=== PATIENT | male | born 1940 | race Caucasian/White ===

== ENCOUNTER → 2024-12-02 11:09 | Outpatient (REF) | payer OTHER, SELFPAY ==
[2024-12-02 12:19] LABS: Hematocrit 47.7 % (39.0-52.0); Hemoglobin 13.2 g/dL (13.0-18.0); Mean Corp Hgb Conc. 27.7 g/dL (33.0-37.0); Mean Corpuscular Volume 79.5 fL (80.0-94.0); Mean Platelet Volume 9.1 fL (7.4-10.4); Platelet Count 346 10^3/uL (130-400); Red Cell Dist. Width 25.7 % (11.5-14.5); White Blood Cell Count 4.6 10^3/uL (4.8-10.8)
[2024-12-02 12:40] LABS: NT-proBNP 5440 pg/ml
[2024-12-02 13:09] LABS: ALT (SGPT) 46 U/L (0-50); AST (SGOT) 50 U/L (17-59); Albumin 2.5 g/dl (3.5-5.0); Alkaline Phosphatase 317 U/L (38-126); Blood Urea Nitrogen 36 mg/dl (9-20); Calcium 7.8 mg/dl (8.4-10.2); Carbon Dioxide 23 mmol/L (22-30); Chloride 101 mmol/L (98-107); Glucose 154 mg/dl (70-99); Potassium 6.3 mmol/L (3.5-5.1); Sodium 127 mmol/L (135-145); Total Bilirubin 0.6 mg/dl (0.2-1.3); Total Protein 5.6 g/dl (6.3-8.2); eGFR 54.85
[2024-12-02 13:24] LABS: Absolute Neutrophils -Man Diff 2.2 10^3/uL (1.4-6.5); Band Neutrophils 0 % (0-3); Lymphocytes 36 % (20-51); Monocytes 16 % (2-9); Normal RBC Morphology Yes; Platelets Checked Yes; Segmented Neutrophils 48 % (42-75); Total Cells Counted 100
== END ==
LOC: OLABN 11:09
PROVIDERS: ATTENDING PHYSICIAN Student in an Organized Health Care Education/Training Program
DX: I10 Essential (primary) hypertension (principal); N18.32 Chronic kidney disease, stage 3b
CPT/HCPCS: 36415; 80053; 83880; 85025

== ENCOUNTER 2024-12-02 21:40 | Inpatient (IN) | payer OTHER, SELFPAY ==
[2024-12-02] VITALS (7 sets, daily range): BP systolic 122–145; BP diastolic 54–93; BMI 22.0
[2024-12-02 17:40] LABS: Hematocrit 50.7 % (39.0-52.0); Hemoglobin 14.2 g/dL (13.0-18.0); Mean Corpuscular Hgb 21.9 pg (27.0-31.0); Mean Corpuscular Volume 78.2 fL (80.0-94.0); Mean Platelet Volume 8.8 fL (7.4-10.4); Platelet Count 322 10^3/uL (130-400); Red Blood Cell Count 6.48 10^6/uL (4.70-6.10); Red Cell Dist. Width 25.9 % (11.5-14.5); White Blood Cell Count 4.3 10^3/uL (4.8-10.8)
[2024-12-02 17:44] LABS: ALT (SGPT) 42 U/L (0-50); AST (SGOT) 40 U/L (17-59); Albumin 2.7 g/dl (3.5-5.0); Alkaline Phosphatase 275 U/L (38-126); Blood Urea Nitrogen 37 mg/dl (9-20); Calcium 8.3 mg/dl (8.4-10.2); Carbon Dioxide 25 mmol/L (22-30); Chloride 100 mmol/L (98-107); Estimated Creatinine Clearance 36 ml/min; Glucose 123 mg/dl (70-99); Potassium 5.9 mmol/L (3.5-5.1); Sodium 129 mmol/L (135-145); Total Bilirubin 0.6 mg/dl (0.2-1.3); Total Protein 5.8 g/dl (6.3-8.2); eGFR 46.19
[2024-12-02 18:15] LABS: Absolute Neutrophils -Man Diff 1.9 10^3/uL (1.4-6.5); Band Neutrophils 0 % (0-3); Lymphocytes 30 % (20-51); Monocytes 24 % (2-9); Segmented Neutrophils 46 % (42-75)
[2024-12-02 18:16] LABS: Normal RBC Morphology Yes; Platelets Checked Yes; Total Cells Counted 100
--- NOTE | 2024-12-02 19:43 | ED.GENMED ---
History of Present Illness
General
Chief Complaint: Abnormal Lab Value
Source: patient
Exam Limitations: none
Time Seen by Provider: 12/02/24 19:41
Nursing documentation reviewed up to this point in time: agreed with
History of Present Illness
History of Present Illness:
The patient is a 84-year-old man with a past medical history of metastatic kidney cancer with mets to the lungs, who was sent from [facility] for where he is getting rehab, for elevated potassium level of 6.3 earlier today. His repeat
potassium level here tonight is 5.9. The patient was recently hospitalized at [facility] for pneumonia and unfortunately was rediagnosed with pneumonia yesterday and started on Levaquin. Patient is on chronic nasal oxygen and is currently
using 5 L of nasal oxygen. He denies fevers and chills. He reports that his breathing is currently near his baseline. The patient's family reports that recently he has been dealing with increased leg edema and bilateral pleural effusions and was
given 1 dose of Lasix yesterday. They report that he had been on oral medication to keep his cancer under control but has not been taking it for a few weeks due to diarrhea and pneumonia. The patient has no specific complaints of pain. He reports
generalized fatigue that he has been dealing with for months.
Past History
Past History
ED Past Medical History: CAD, Cancer, Hypercholesterolemia and NIDDM
ED Past Surgical History: Cardiac
Social History
Tobacco: Non-smoker
Alcohol: None
Drug: None
Personal:
Living: other (Rehab at [facility])
Employment: Retired
Family History
Family History: Other
Review of Systems
Review of Systems
Allergies reviewed?: Yes
All Other Systems: ROS reviewed and negative except as documented in HPI and ROS
Constitutional: Reports fatigue
EENT: Reports no symptoms
Respiratory: Reports cough and trouble breathing
Cardiac: Reports no symptoms
ABD/GI: Reports no symptoms
: Reports no symptoms
Musculoskeletal: Reports edema
Skin: Reports no symptoms
Neurological: Reports no symptoms
Endocrine: Reports no symptoms
Hematologic/Lymphatic: Reports no symptoms
Psychiatric: Reports no symptoms
Phy Exam
Physical Exam
Physical Exam:
Physical Exam
General: Patient appears pale and frail.
Neck: supple. no meningeal signs. normal psoterior pharynx
Heart: s1/s2 regular rate and rhythm,
Lungs: Mildly tachypneic with speaking. Bilateral crackles and decreased breath sounds bilaterally
Abdomen: normal bowel sounds. not tender. no CVAT
Neuro: alert and oriented. no focal neurological deficits
Skin: no rash
Psychiatric: well kept. interactive and cooperative
Extremities: 2+ pitting edema bilateral lower extremities. Negative Homans' sign. No calf tenderness
Course
Orders/Labs/Results
Orders:
Orders
12/02/24 17:19
EKG [Electrocardiogram (*1)] Urgent
Reason for Study: Shortness of Breath
EKG- Treatment ONCE
12/02/24 17:23
CMP [Comprehensive Metabolic Panel] Urgent
Complete Blood Count/With Diff Urgent
Manual Differential Urgent
NT-proBNP Urgent
Comment: ADD ON
12/02/24 20:36
Bumetanide [Bumex] 2 mg IV NOW STA
12/02/24 20:41
CR Chest - 2 Views Urgent
Comment:
Reason For Exam: SOB
12/02/24 21:08
Urine Osmolality Random [Osmolality, Random Urine] Urgent
Urine Sodium Urgent
12/02/24 21:09
Add On- LAB Urgent
Tests Added?: BNP
12/02/24 22:00
Flush (0.9% Sodium Chloride) [Flush (Nss)] See Dose Instructions IV PER PROTOCOL
Abnormal Lab Results
12/02/24
17:23
WBC 4.3 L 10^3/uL
(4.8-10.8)
RBC 6.48 H 10^6/uL
(4.70-6.10)
MCV 78.2 L fL
(80.0-94.0)
MCH 21.9 L pg
(27.0-31.0)
MCHC 28.0 L g/dL
(33.0-37.0)
RDW 25.9 H %
(11.5-14.5)
Monocytes (Manual) 24 H %
(2-9)
Sodium 129 L mmol/L
(135-145)
Potassium 5.9 H mmol/L
(3.5-5.1)
BUN 37 H mg/dl
(9-20)
Creatinine 1.5 H mg/dL
(0.7-1.3)
Glucose 123 H mg/dl
(70-99)
Calcium 8.3 L mg/dl
(8.4-10.2)
Alkaline Phosphatase 275 H U/L
(38-126)
Total Protein 5.8 L g/dl
(6.3-8.2)
Albumin 2.7 L g/dl
(3.5-5.0)
12/02/24 17:23
12/02/24 17:23
Vital Signs
Initial and Last Documented VS:
Initial Vital Signs
Temp Pulse Resp BP Pulse Ox
97.4 F 65 25 122/54 97
12/02/24 17:03 12/02/24 17:03 12/02/24 17:03 12/02/24 17:03 12/02/24 17:03
Last Documented Vital Signs
Temp Pulse Resp BP Pulse Ox
97.4 F 64 19 133/57 95
12/02/24 17:03 12/02/24 20:00 12/02/24 20:00 12/02/24 20:00 12/02/24 20:00
MDM/Problems Addressed
Differential Diagnosis Includes:
Medication related hyperkalemia, acute renal failure,
MDM/Problems Addressed:
Patient presents with acute hyperkalemia
Chronic conditions affecting care:
Chronic kidney disease
Acute Exacerbation and/or Progression of Chronic Illness:
Patient may have acute on chronic renal insufficiency
*Radiology
Radiology exam reviewed: preliminary read by ED provider (Cardiomegaly. Bilateral pleural effusions, cannot exclude underlying infiltrates)
*Pulse Oximetry
Patient hypoxic: no
*EKG
Interpreted by ED Provider?: Yes
Interpretation: abnormal
Comparison EKG: no comparison EKG present
Rate: normal
Rhythm: sinus
Piffard: normal axis
Interval: normal interval
QRS Pattern: right bundle branch block
Ischemia: non-specific ST changes
*Litigation Secretary Interpretation
Rate: normal
Interpretation: normal
Rhythm: sinus
*Critical Care Note
Total Time (30-74mins, 75-104mins- exclusive of procedures): Not Applicable (35 minutes)
comment:
35 minutes of critical care given to the patient including reviewing his chest x-ray, blood work, speaking to the hospitalist, family as well as reviewing his notes from [facility]
Data Reviewed
Source: patient and family
Patient Management
Social determinants of health affecting care: Living situation and Strong social support
Discussion with other providers: Hospitalist and Other (Case discussed with Dr. Yasmany Coley who recommended admission and given 2 mg IV Bumex now for fluid overload)
Escalation/DeEscalation of care consider admission/obs:
Given patient is greatly fluid overloaded, has a recent diagnosis of hospital-acquired pneumonia, and additionally has an elevated potassium, decision made to admit patient for diuresis and monitor his potassium and sodium levels. Additionally, we
will also monitor him for any sign of sepsis. Currently, he is afebrile and looks nontoxic. He is fully awake, alert and blood pressure normal.
ED Attending Note
-
Portions of this chart may have been created with voice recognition software.� Occasional wrong word or��sound alike� substitutions may have occurred due to the inherent limitations of voice recognition software.
Discharge Plan
Departure
Patient Disposition: Admit
Date of Disposition: 12/02/24
Time of Disposition: 20:36
Admit to: Telemetry
Presentation/result/management discussed w/ accepting MD/DO: Hospitalist
Patient with high blood pressure during this ER visit?: No
Condition: Fair
Discharge Problem:
Acute hyperkalemia, Bilateral pleural effusion
Prescriptions:
No Action
acetaminophen 325 mg Tablet
650 mg PO Q4H PRN (Reason: mild pain / fever)
ipratropium-albuterol 0.5 mg-3 mg(2.5 mg base)/3 mL Solution For Nebulization
3 ml INHALATION Q6HPRN PRN (Reason: shortness of breath / wheeze)
isosorbide mononitrate 30 mg Tablet Extended Release 24 Hr
30 mg PO DAILY
diphenoxylate-atropine 2.5-0.025 mg Tablet
1 tab PO DAILY PRN (Reason: diarrhea)
hydralazine 25 mg Tablet
25 mg PO DAILY@1830
Rx Instructions:
Hold for SBP <110 or HR <60
bisacodyl 10 mg Suppository
10 mg DC DAILY PRN (Reason: constipation)
Rx Instructions:
No BM for 3 days and Lactulose ineffective
bumetanide [Bumex] 0.5 mg Tablet
0.5 mg PO DAILY
aspirin 81 mg Tablet
81 mg PO DAILY
pyridoxine (vitamin B6) [Vitamin B-6] 100 mg Tablet
100 mg PO BID
mirtazapine 15 mg Tablet
15 mg PO HS
metoprolol succinate 25 mg Tablet Extended Release 24 Hr
12.5 mg PO HS
rosuvastatin 10 mg Tablet
10 mg PO DAILY
lactulose 10 gram/15 mL Solution
30 ml PO HSPRN PRN (Reason: constipation)
sitagliptin 25 mg Tablet
25 mg PO DAILY
Referrals:
Gume Byers MD [Family Provider]
Interventions
Interventions:
*Risk Screen - Suicide Last Done: 12/02/24 18:17
*General Assessment Last Done: 12/02/24 17:16
*Neglect/Abuse Screening Last Done: 12/02/24 18:40
*ED- Fall Risk Assessment Last Done: 12/02/24 17:16
*ED COVID-19 Vaccine History Last Done: 12/02/24 17:03
Discharge Date and Time
Print Language: CROATIAN
--- NOTE | 2024-12-02 21:36 | HPS.HSE ---
Family Physician
-
Family Physician: Gume Byers
Chief Complaint
-
Elevated Potassium
History of Present Illness
Patient is an 84 y/o male past medical history of metastatic renal cell carcinoma, recurrent pleural effusion requiring thoracentesis, CAD, HTN, and DM who presents with hyperkalemia. Patient was hospitalization at [facility] earlier this
month. During that hospitalization he was treated for pneumonia and also had a left thoracentesis for a pleural effusion. Patient was discharged to [facility] for alf care on November 18. Per family patient had a second thoracentesis
while at [facility]. Yesterday patient had a CXR that revealed a patchy bilateral airspace disease and modest pleural effusions for which patient was started on Levaquin. Blood work obtained today showed a potassium of 6.2 and patient was sent to the
emergency department for evaluation. Family at bedside notes patient has developed significant lower extremity edema since being at the SNF. Review of transfer records indicate an 8lb weight gain in the past week. Patient/Family deny any prior
history of heart failure.
Medical History
Past Medical History
Past Medical History: Reports Other
Additional Past Medical History:
Chronic Hypoxic Respiratory Failure
Recurrent Pleural Effusion
Metastatic Renal Cell Carcinoma with Lung Mets s/p Keytruda and Chemotherapy
CKD Stage IIIB
Coronary Artery Disease s/p CABG
Essential Hypertension
Hyperlipidemia
Diabetes Mellitus, Type II
Depression
Past Surgical History: Reports Other
Additional Past Surgical History:
Coronary Artery Bypass Graft
Thoracentesis
Discectomy
Social History
Tobacco: Non-smoker
Alcohol: Occasional (None recently)
Family History
Family History: Not pertinent
Allergies / Home Medications
Allergies reflects when Allergies were last updated in [employer].
Home Medications with original date entered in [facility]
Allergy/Medication List:
Allergies
Allergy/AdvReac Type Severity Reaction Status Date / Time
adhesive tape Allergy Rash Verified 12/02/24 17:15
Home Medications
acetaminophen 325 mg tablet 650 mg PO Q4H PRN mild pain / fever 12/02/24
aspirin 81 mg tablet 81 mg PO DAILY 12/02/24
bisacodyl 10 mg rectal suppository 10 mg DE DAILY PRN constipation 12/02/24
bumetanide 0.5 mg tablet 0.5 mg PO DAILY 12/02/24
diphenoxylate-atropine 2.5 mg-0.025 mg tablet 1 tab PO DAILY PRN diarrhea 12/02/24
hydralazine 25 mg tablet 25 mg PO DAILY@1830 12/02/24
ipratropium 0.5 mg-albuterol 3 mg (2.5 mg base)/3 mL nebulization soln 3 ml inhalation Q6HPRN PRN shortness of breath / wheeze 12/02/24
isosorbide mononitrate 30 mg tablet,extended release 24 hr 30 mg PO DAILY 12/02/24
lactulose 10 gram/15 mL oral solution 30 ml PO HSPRN PRN constipation 12/02/24
metoprolol succinate 25 mg tablet,extended release 24 hr 12.5 mg PO HS 12/02/24
mirtazapine 15 mg tablet 15 mg PO HS 12/02/24
pyridoxine (vitamin B6) 100 mg tablet (Vitamin B-6) 100 mg PO BID 12/02/24
rosuvastatin 10 mg tablet 10 mg PO DAILY 12/02/24
sitagliptin 25 mg tablet 25 mg PO DAILY 12/02/24
Review of Systems
-
History Source: Patient and Family
A 12 point ROS was completed and negative except as noted: Yes
Constitutional: Denies Fever or Chills
Respiratory: Reports Trouble Breathing; Denies Cough
Cardiac: Denies Chest Pain or Palpitations
Physical Exam
Vital Signs
Vital Signs
Temp Pulse Resp BP Pulse Ox
97.4 F 64 19 133/57 95
12/02/24 17:03 12/02/24 20:00 12/02/24 20:00 12/02/24 20:00 12/02/24 20:00
Physical Exam
General: Comfortable, Conversant and Other (Temporal Wasting)
HEENT: Anicteric, Moist mucous membranes and Oxygen (Nasal Cannula)
Respiratory: Non Labored Respirations and Other (Absent breath sounds on left from base to about half way up lung field; Decreased breath sounds right base; Few scattered rales)
Cardiac: S1/S2 and Regular Rhythm
GI: Soft and Non Tender
Rectal: Deferred by Provider
Musculoskeletal: No Clubbing, No Cyanosis and Other (+3 pitting edema bilateral lower extremities; Tubigrip in place bilateral)
Skin: Warm and Dry
Neuro: Awake, Alert, Oriented and Nonfocal/grossly intact
Psych: Calm
Laboratory Results
-
12/02/24 17:23
12/02/24 17:23
Laboratory Results
Total Bilirubin 0.6 mg/dl (0.2-1.3) 12/02/24 17:23
AST 40 U/L (17-59) 12/02/24 17:23
ALT 42 U/L (0-50) 12/02/24 17:23
Alkaline Phosphatase 275 U/L (38-126) H 12/02/24 17:23
Data Reviewed
-
Diagnostic Radiology: Image Personally Visualized and interpreted (CXR: Large left pleural effusion; Small right pleural effusion)
Lab Data: Labs Reviewed by me
Old Records: Reviewed
Impression/Plan
-
Recurrent Left Pleural Effusion
-Consult IR for thoracentesis
-Will send usual studies including cytology to evaluate for possible malignant effusion in setting of metastatic renal cell carcinoma
Acute Heart Failure, unknown EF
-Consult Cardiology
-Check Echocardiogram
-Continue Bumex 1mg IV Daily
-Monitor Is&Os and Daily Weights
Hyperkalemia
-Appears patient previously was on lisinopril which appears to have been stopped
-Patient given Bumex in ED
-Recheck potassium later this evening
Hyponatremia, suspect hypervolemic
-Continue fluid restriction
-Check urine electrolytes
Chronic Hypoxic Respiratory Failure
-Continue supplement oxygen
CKD Stage IIIB, per [place] paperwork
-Monitor creatinine closely while on diuretics
Metastatic Renal Cell Carcinoma with Lung Mets s/p Keytruda and Chemotherapy
-Treatment currently no hold
Coronary Artery Disease s/p CABG
-Continue aspirin
Essential Hypertension
-Continue metoprolol and hydralazine with hold parameters
Hyperlipidemia
-Continue rosuvastatin
Diabetes Mellitus, Type II
-Continue Januvia
-Monitor sugars and continue coverage insulin
Depression
-Continue mirtazapine
DVT prop: SC Heparin
Code Status: DNR
[2024-12-02] MEDS: BUMEX 2 MG IV (21:37)
[2024-12-02] MEDS: FLUSH (NSS) 1 FLUSH IV (21:45)
--- NOTE | 2024-12-02 21:53 | W.PN.UPDATE ---
Update Note
Progress Note Update
This is an addendum to H&P written by Laurie Salgado on 12/02/2024.� Patient seen and examined independently with PA.
84-year-old male past medical history of metastatic kidney cancer metastases to the lungs previously on Keytruda and chemotherapy, CAD status post CABG, hypertension, depression, hypercholesteremia, diabetes, presenting for elevated potassium 6.3.�
Recently hospitalized at [facility] for pneumonia and pleural effusion status post thoracentesis and rediagnosed with pneumonia yesterday at [facility] and started on Levaquin.� Requiring 5 L oxygen.� Has been having increased lower
extremity edema bilateral pleural effusions and was given Lasix yesterday.
Patient currently requiring 4 L oxygen.� On examination significantly diminished lung sounds on the left side suggesting large effusion.
Labs show potassium of 6.3 this morning, currently 5.9.� Creatinine 1.5.� Sodium 129.� Leukocytes 4.3.� Cardiac BNP of 5400.� EKG shows normal sinus rhythm, incomplete right bundle branch block.
Patient with hyperkalemia secondary to volume overload/underlying heart failure.��
Hypoxemic respiratory failure seems to be combination of acute CHF exacerbation and pleural effusions possibly related to CHF/underlying lung metastases.� Chest x-ray report from yesterday shows bibasilar opacities and moderate pleural effusions.�
Repeat chest x-ray.� Hold further antibiotics.� Continue Bumex.� Check echocardiogram.� Will�need IR thoracentesis on the left side. Cardiology consulted.�
Likewise edema likely combination of CHF/hypoalbuminemia/malignancy.
[2024-12-02 21:54] LABS: NT-proBNP 6790 pg/ml
[2024-12-02 22:45] LABS: Osmolality Urine 320 mOsm/kg (300-900)
--- NOTE | 2024-12-02 23:00 | PTCARENOTE ---
Pt arrived from ED via stretcher. Pulled over from stretcher to bed by staff. Pt A&Ox3. Oriented to unit. Plan of care ongoing.
[2024-12-02] MEDS: REMERON 15 MG PO (23:32)
[2024-12-02] MEDS: TOPROL XL 12.5 MG PO (23:34)
[2024-12-02 23:37] LABS: Urine Sodium 88 mmol/L (30-90)
[2024-12-03] VITALS (11 sets, daily range): BP systolic 92–147; BP diastolic 46–65; PULSE 73–84; O2SAT 94; BMI 21.9
[2024-12-03 00:12] LABS: Glucose - Point of Care 142 mg/dl (70-99)
--- NOTE | 2024-12-03 01:00 | PTCARENOTE ---
Pt oral temperature noted to be 94.2 F. JESSE Garrido notified. This RN advised to take rectal temperature. Rectal temp noted to be 95.2 F. Order for tin quang placed. Plan of care ongoing.
[2024-12-03 06:59] LABS: Hematocrit 46.2 % (39.0-52.0); Hemoglobin 13.2 g/dL (13.0-18.0); Mean Corp Hgb Conc. 28.6 g/dL (33.0-37.0); Mean Corpuscular Hgb 21.8 pg (27.0-31.0); Mean Corpuscular Volume 76.2 fL (80.0-94.0); Mean Platelet Volume 8.9 fL (7.4-10.4); Platelet Count 316 10^3/uL (130-400); Red Blood Cell Count 6.06 10^6/uL (4.70-6.10); Red Cell Dist. Width 25.1 % (11.5-14.5); White Blood Cell Count 3.7 10^3/uL (4.8-10.8)
[2024-12-03 07:15] LABS: Blood Urea Nitrogen 36 mg/dl (9-20); Calcium 8.5 mg/dl (8.4-10.2); Carbon Dioxide 24 mmol/L (22-30); Chloride 101 mmol/L (98-107); Estimated Creatinine Clearance 39 ml/min; Glucose 110 mg/dl (70-99); LDH 220 U/L (120-246); Magnesium 1.8 mg/dl (1.6-2.3); Sodium 130 mmol/L (135-145); Total Protein 5.4 g/dl (6.3-8.2); eGFR 50.18
[2024-12-03 07:19] LABS: PT 15.5 Sec (11.4-14.6)
[2024-12-03 07:46] LABS: TSH Reflex To Free T4 6.76 uIU/ml (0.47-4.68)
[2024-12-03 07:58] LABS: Glucose - Point of Care 101 mg/dl (70-99)
[2024-12-03 08:16] LABS: Free T4 1.49 ng/dl (0.78-2.19)
--- NOTE | 2024-12-03 09:10 | W.PN.HOSP.TC ---
Today's Communication/Plan
-
Continue IV Bumex twice daily
Stop hydralazine per cards
Repeat chest x-ray tomorrow
Consider IR consult if effusions persistent
Echo on Thursday
Assessment / Plan
Assessment / Plan
#Acute on chronic hypoxemic respiratory failure
#Acute heart failure
#Recurrent (?) left pleural effusion
-Likely new onset heart failure (unclear etiology, previously on chemo) with recurrence (?) of left pleural effusion
-Last echocardiogram in 2023 was normal with preserved LVEF and no diastolic dysfunction
-Upon arrival was started on IV Bumex which has been escalated to twice daily, now on RA
-Warm and wet phenotype, remains hemodynamically stable
-Cardiology following
Plan
-Continue IV Bumex 1 mg twice daily; BMP + I/Os + weights
-Consider IR consult if left sided effusion persistent
-Order echocardiogram to assess LVEF
-Continue with beta-yesi, consider SGLT2i
-Monitor on telemetry for now
-Monitor on RA
-Repeat CXR on 12/04
#Hyperkalemia
#Hypervolemic hyponatremia
-Hypervolemic phenotype with decompensated heart failure; sodium near 130, potassium near 6 initially
-Was started on IV Bumex as above, sodium remained stable and potassium now downtrending
-Was started on potassium restricted diet, bladder ultrasound ordered to assess for obstruction
-Continue with Bumex and follow-up ultrasound
-Trend BMP, temporize K >6 or ECG changes
#CKD stage IIIb
-Possibly related to renal cell carcinoma; baseline creatinine near 1.3
-Not associated with anemia, acidemia, bone mineral disease
-Creatinine near 1.6 here, likely within baseline versus cardiorenal elevation
-Continue to trend BMP on Bumex as above
#Stage IV renal cell carcinoma with lung mets
-Status post Keytruda for immunotherapy, and course of chemotherapy
-Was recently stopped on oral medication due to diarrhea and pneumonia
-Will need to follow-up with oncologist after DC
#CAD s/p CABG
#Dyslipidemia
-Home regimen includes aspirin, rosuvastatin, metoprolol succinate, isosorbide
-No history of cardiomyopathy, last echo with preserved LVEF
-CAD associated with history of diabetes and HLD
-No signs of ACS here
#Primary hypertension
-Home regimen including metoprolol succinate, isosorbide, hydralazine daily
-Cardiology discontinued daily hydralazine
-Blood pressure remained stable
#NIDDM
-No recent A1c; Home regimen includes sitagliptin
-No known history of microvascular complications
-Likely associated with CAD history
-Transition to ISS with Accu-Cheks here
#Depression
-Remains on home nightly Remeron
Diet: Carb controlled, no added salt
DVT prophylaxis: SQ heparin
CODE STATUS: DNR
Anticipated Discharge: > 48 hours
Subjective/Interval History
-
Date of Service: December 03, 2024
Seen and examined at the bedside. No acute events reported. AFVSS on room air this morning
Sodium stable near 130. Potassium downtrending from 6-5.6. Creatinine stable
Patient states he is breathing much better, denies any new complaints
Objective Data
-
Labs:
Laboratory Results
12/03/24 12/03/24
06:25 06:25
WBC 3.7 L
Hgb 13.2
Hct 46.2
Plt Count 316
PT 15.5 H
INR 1.20
Sodium 130 L
Potassium 6.0 H Pending
Chloride 101
Carbon Dioxide 24
BUN 36 H
Creatinine 1.4 H
Glucose 110 H
Calcium 8.5
Vital Signs:
Vital Signs
Temp Pulse Resp BP Pulse Ox
98.1 F 84 16 138/62 94
12/03/24 07:43 12/03/24 07:43 12/03/24 07:43 12/03/24 07:43 12/03/24 07:43
I&O
12/02/24 12/03/24 12/04/24
06:59 06:59 06:59
Intake Total 1050 / 1050
Balance 1050 / 1050
Review of Systems
-
History Source: Patient
All other systems: Reviewed and negative
Physical Exam
-
General: Well Developed, Well Nourished, No Apparent Distress and Comfortable
HEENT: Normocephalic, Atraumatic, Moist Mucous Membranes and Anicteric
Respiratory: Rales and Non Labored Respirations; Negative Wheezes, Rhonchi or Accessory Resp Muscle Use
Cardiac: Regular Rhythm, S1/S2, JVD (Unable to assess due to habitus) and Other (2+ edema); Negative Murmur, Rub or Gallop
GI: Soft, Nontender, Nondistended and Normal Bowel Sounds
Musculoskeletal: No Clubbing and No Cyanosis
Skin: Warm and Dry; Negative Rash
Neuro: AO x 3 and Nonfocal/Grossly Intact
Psych: Calm
Data Reviewed
-
Labs: Labs Reviewed by me, Discussed with Physician (Gambreler Helper) and Discussed with Patient
--- NOTE | 2024-12-03 09:18 | CON.CAR ---
Addendum entered and electronically signed by Flaco Seals MD 12/03/24 11:01:
I saw and examined the patient.
The TRUCK BRACER's note was reviewed and I agree with the note.
Comment: Patient seen with his , daughter and [id number] at the bedside. They note, he has not had an issue with volume retention until recent hospitalization for pneumonia. Since then, has been struggling with lower extremity edema, and
his daughter reports that while at [facility] he did have an episode several nights where he woke up feeling short of breath acutely. He was given a nebulizer treatment. Currently sitting up in the chair without any dizziness, chest pain or
shortness of breath. On exam, he appears chronically ill. He has cachexia in the face and upper thorax, JVP is elevated while sitting at 90 degrees, lungs are clear to auscultation but decreased bilaterally at the bases, he has a regular rate and
rhythm with normal S1-S2. 2-3+ pitting edema in the legs. Some ecchymosis. EKG is sinus rhythm with incomplete right bundle branch bloc chest x-ray chest x-ray shows moderate to large left pleural effusion, with patchy infiltrates in addition to
diffuse interstitial markings. There is a dense infiltrate in the right lower to mid/hilum lung field sternal wires in place findings seem consistent with multifocal pneumonia with pulmonary edema and pleural effusion. Labs show proBNP 6790
creatinine 1.5 overall, multiple reasons for him to have had episodes of what sound like PND, but findings concerning for a component of acute HFpEFAgree with IV Bumex twice daily with intensive monitoring. Will add to put compression to lower
extremities. Will ask case management to lorenz out Farxiga/Jardiance. GDMT will be limited by hyperkalemia.He has not on antihypertensive regimen with a midday hydralazine dose, but blood pressures do not seem to need this. Will try to see if we
can limit overall therapies. Will stop this dose. SUNITHA, mild, suspect this will improve with diuresis. Will monitor.
Original Note:
Consultation
Consultation Request
Date/Time Consultation Requested: 12/02/24 10:45p
Date/Time Consultation Performed: 12/03/24 8:45a
Requesting Provider: Laurie Garcia PA-C
Performing Provider: JESSE Carroll for Dr. Seals
Reason for Consultation: CHF
Medical History
-
Chief Complaint: hyperkalemia
History of Present Illness:
Mr. Butts is an 84 yo male with recurrent pleural effusions, metastatic renal cell carcinoma with lung mets s/p chemotherapy and Keytruda followed by [facility], CKD 3B, CAD status post CABG x2 2006, hypertension, dyslipidemia, znq-dkjjqfg-zyyhzznqr
diabetes, and PAD (moderate right ICA), who presents to the ER from [facility] with hyperkalemia of 6.2 on outpatient labs. He was recently hospitalized at [facility] for pneumonia, and was sent to [facility] for rehab.
He notes significant increased lower extremity edema and weight gain of about 8 pounds in 1 week. He is admitted to the hospitalist service and we are consulted for acute HFpEF. His primary instrument room technician is Dr. Naranjo and he is not on outpatient
diuretics. CXR shows mild right upper lobe, right lower lobe and left lower lobe pneumonia, atelectasis in left lower lobe not excluded and small b/l pleural effusions, his proBNP is 6790.
Past Medical History
Past Medical History: Other (as above)
Past Surgical History: Cardiac (CABG 2006)
Social History
Tobacco: Former Smoker
Personal:
Living: With Family
Employment: Retired
Family History
Family History: Reviewed & Not Pertinent
Allergies / Home Medications
Allergy/AdvReac Type Severity Reaction Status Date / Time
adhesive tape Allergy Rash Verified 12/02/24 17:15
�Medication �Instructions �Recorded �Confirmed �Type
acetaminophen 325 mg tablet 650 mg PO Q4H PRN mild pain / fever 12/02/24 12/02/24 History
aspirin 81 mg tablet 81 mg PO DAILY Blood Clot 12/02/24 12/02/24 History
Prevention/Tx
bisacodyl 10 mg rectal suppository 10 mg [place] DAILY PRN constipation 12/02/24 12/02/24 History
bumetanide 0.5 mg tablet 0.5 mg PO DAILY Fluid 12/02/24 12/02/24 History
Retention/Swelling
diphenoxylate-atropine 2.5 1 tab PO DAILY PRN diarrhea 12/02/24 12/02/24 History
mg-0.025 mg tablet
hydralazine 25 mg tablet 25 mg PO DAILY@1830 Blood Pressure 12/02/24 12/02/24 History
ipratropium 0.5 mg-albuterol 3 mg 3 ml inhalation Q6HPRN PRN 12/02/24 12/02/24 History
(2.5 mg base)/3 mL nebulization shortness of breath / wheeze
soln
isosorbide mononitrate 30 mg 30 mg PO DAILY Blood Pressure 12/02/24 12/02/24 History
tablet,extended release 24 hr
lactulose 10 gram/15 mL oral 30 ml PO HSPRN PRN constipation 12/02/24 12/02/24 History
solution
metoprolol succinate 25 mg 12.5 mg PO HS Blood Pressure 12/02/24 12/02/24 History
tablet,extended release 24 hr
mirtazapine 15 mg tablet 15 mg PO HS Sleep 12/02/24 12/02/24 History
pyridoxine (vitamin B6) 100 mg 100 mg PO BID Supplement 12/02/24 12/02/24 History
tablet (Vitamin B-6)
rosuvastatin 10 mg tablet 10 mg PO DAILY High Cholesterol 12/02/24 12/02/24 History
sitagliptin 25 mg tablet 25 mg PO DAILY Diabetes 12/02/24 12/02/24 History
Review of Systems
-
History Source: Patient
All other systems: Negative unless noted
Physical Exam
Vital Signs
Temp Pulse Resp BP Pulse Ox
98.1 F 84 16 138/62 94
12/03/24 07:43 12/03/24 07:43 12/03/24 07:43 12/03/24 07:43 12/03/24 07:43
Lab Results
12/03/24 06:25
12/03/24 06:25
Czd-N-Cqpwiezfkzz Pept 6790 pg/ml 12/02/24 17:23
Physical Exam
General: Other (chronically ill, frail/elderly)
HEENT: Normocephalic, Anicteric and Moist Mucous Membranes
Respiratory: Non Labored Respirations and Other (diminished bibasilar breath sounds)
Cardiac: S1/S2, Regular Rhythm and Peripheral Edema (+2-3 pitting edema b/l LE)
Breast: Deferred by me
GI: Soft, Non Tender, Non Distended and Normal Bowel Sounds
Genito-urinary: No Costovertebral Tender
Musculoskeletal: No Clubbing and No Cyanosis
Skin: Warm and Dry
Neuro: AO x 3
Psych: Calm
Impression / Plan
-
HFpEF - acute.
- agree with diuresis as BP allows.
- check daily weights, I&Os, TEDs.
- case management cost for [facility].
Pleural effusion - recurrent.
- IRAD consulted.
- per hospitalist.
CAD - s/p CABG 2006.
- no angina.
- continue medical therapy.
HTN - monitor with diuresis.
HLD - stable on Crestor, continue.
Renal cancer - mets to lung s/p chemo and Keytruda.
- per hospitalist.
- managed by [facility].
Data Reviewed
-
EKG: Tracing Personally Visualized and interpreted (NSR icRBBB, 66 bpm)
Radiology: Report Reviewed by me (CXR: mild right upper lobe, right lower lobe and left lower lobe pneumonia. Atelectasis in left lower lobe not excluded, small b/l pleural effusions.)
Medical Tests (Nuc Med, Echo etc): Report Reviewed by me (echo 08/2023: EF 60-65%, minimal aortic stenosis peak gradient 17mmHg.)
Labs: Labs Reviewed by me
Old Records: Reviewed
[2024-12-03] MEDS: ASPIR LOW (ENTERIC COATED) 81 MG PO (09:21)
[2024-12-03] MEDS: CRESTOR 10 MG PO (09:21)
[2024-12-03] MEDS: BUMEX 1 MG IV ×2 (09:22→16:39)
[2024-12-03] MEDS: HEPARIN 5000 UNITS SC ×2 (09:23→20:58)
[2024-12-03] MEDS: JANUVIA 25 MG PO (09:23)
[2024-12-03 11:58] LABS: Glucose - Point of Care 144 mg/dl (70-99)
--- NOTE | 2024-12-03 12:02 | W.CON.NEPH ---
Consultation
-
Date/Time Consultation Requested: December 02, 2024 at 1900
Date/Time Consultation Performed: December 03, 2024 at 10 AM
Requesting Provider: Dr. Kline
Performing Provider: Dr. Coley
Reason for Consultation: Hyperkalemia and acute kidney injury
Medical History
-
Chief Complaint: Hyperkalemia
History of Present Illness:
84 y/o male past medical history of metastatic renal cell carcinoma, recurrent pleural effusion requiring thoracentesis, CAD, HTN, and DM who presents with hyperkalemia. Patient was hospitalization at [facility] earlier this month. During
that hospitalization he was treated for pneumonia and also had a left thoracentesis for a pleural effusion. Patient was discharged to [facility] for assisted care on November 18. Per family patient had a second thoracentesis while at [facility].
Yesterday patient had a CXR that revealed a patchy bilateral airspace disease and modest pleural effusions for which patient was started on Levaquin. Blood work obtained today showed a potassium of 6.2 and patient was sent to the emergency
department for evaluation.
Renal consult for acute kidney injury and hyperkalemia
Discussed with the emergency room last night and ordered a Bumex.
Past Medical History
Past medical history of metastatic renal cell carcinoma, recurrent pleural effusion requiring thoracentesis, CAD, HTN,
Social History
Tobacco: Non-Smoker
Alcohol: None
Family History
Family History: Not Pertinent
Allergies / Home Medications
Allergy/AdvReac Type Severity Reaction Status Date / Time
adhesive tape Allergy Rash Verified 12/02/24 17:15
�Medication �Instructions �Recorded �Confirmed �Type
acetaminophen 325 mg tablet 650 mg PO Q4H PRN mild pain / fever 12/02/24 12/02/24 History
aspirin 81 mg tablet 81 mg PO DAILY Blood Clot 12/02/24 12/02/24 History
Prevention/Tx
bisacodyl 10 mg rectal suppository 10 mg [place] DAILY PRN constipation 12/02/24 12/02/24 History
bumetanide 0.5 mg tablet 0.5 mg PO DAILY Fluid 12/02/24 12/02/24 History
Retention/Swelling
diphenoxylate-atropine 2.5 1 tab PO DAILY PRN diarrhea 12/02/24 12/02/24 History
mg-0.025 mg tablet
hydralazine 25 mg tablet 25 mg PO DAILY@1830 Blood Pressure 12/02/24 12/02/24 History
ipratropium 0.5 mg-albuterol 3 mg 3 ml inhalation Q6HPRN PRN 12/02/24 12/02/24 History
(2.5 mg base)/3 mL nebulization shortness of breath / wheeze
soln
isosorbide mononitrate 30 mg 30 mg PO DAILY Blood Pressure 12/02/24 12/02/24 History
tablet,extended release 24 hr
lactulose 10 gram/15 mL oral 30 ml PO HSPRN PRN constipation 12/02/24 12/02/24 History
solution
metoprolol succinate 25 mg 12.5 mg PO HS Blood Pressure 12/02/24 12/02/24 History
tablet,extended release 24 hr
mirtazapine 15 mg tablet 15 mg PO HS Sleep 12/02/24 12/02/24 History
pyridoxine (vitamin B6) 100 mg 100 mg PO BID Supplement 12/02/24 12/02/24 History
tablet (Vitamin B-6)
rosuvastatin 10 mg tablet 10 mg PO DAILY High Cholesterol 12/02/24 12/02/24 History
sitagliptin 25 mg tablet 25 mg PO DAILY Diabetes 12/02/24 12/02/24 History
Review of Systems
-
Lower extremity edema
All other systems: Negative unless noted
Physical Exam
Vital Signs
Vital Signs
Temp Pulse Resp BP Pulse Ox
97.5 F 71 16 108/53 98
12/03/24 11:11 12/03/24 11:11 12/03/24 11:11 12/03/24 11:11 12/03/24 11:11
Lab Results
WBC 3.7 10^3/uL (4.8-10.8) L 12/03/24 06:25
RBC 6.06 10^6/uL (4.70-6.10) 12/03/24 06:25
Hgb 13.2 g/dL (13.0-18.0) 12/03/24 06:25
Hct 46.2 % (39.0-52.0) 12/03/24 06:25
Plt Count 316 10^3/uL (130-400) 12/03/24 06:25
Sodium 130 mmol/L (135-145) L 12/03/24 06:25
Chloride 101 mmol/L (98-107) 12/03/24 06:25
Carbon Dioxide 24 mmol/L (22-30) 12/03/24 06:25
BUN 36 mg/dl (9-20) H 12/03/24 06:25
Creatinine 1.4 mg/dL (0.7-1.3) H 12/03/24 06:25
eGFR 50.18 12/03/24 06:25
Glucose 110 mg/dl (70-99) H 12/03/24 06:25
Calcium 8.5 mg/dl (8.4-10.2) 12/03/24 06:25
Lid-V-Dkxnsfldnpm Pept 6790 pg/ml 12/02/24 17:23
Albumin 2.7 g/dl (3.5-5.0) L 12/02/24 17:23
Physical Exam
General no acute distress
HEENT no cephalic atraumatic extraocular muscle intact no scleral icterus no JVD neck supple
lungs coarse breath sounds
heart regular S1-S2 positive
abdomen soft nontender positive bowel sounds
extremities +2 edema
Neurologically nonfocal alert and oriented x 3
Skin no lesions no abrasions no petechiae
Psych normal affect no bizarre behavior
Data Reviewed
-
Radiology: Image Personally Visualized and interpreted
Labs: Labs Reviewed by me, Discussed with Physician and Discussed with Patient
Assessment/Plan
-
84 y/o male past medical history of metastatic renal cell carcinoma, recurrent pleural effusion requiring thoracentesis, CAD, HTN, and DM who presents with hyperkalemia. Patient was hospitalization at [facility] earlier this month.
Sent in for hyperkalemia 6.2
Impression.
Acute on chronic kidney disease with a baseline creatinine 1.3 presenting creatinine 1.6.
Hyperkalemia 5.9.
Lower extremity edema.
Pleural effusions.
Plan.
Continue Bumex
Potassium restriction
Stat labs ordered
Check bladder scan
A.m. labs
[2024-12-03 12:06] LABS: Potassium 5.6 mmol/L (3.5-5.1)
[2024-12-03] MEDS: IMDUR (EXTENDED RELEASE) PO (12:27)
--- NOTE | 2024-12-03 14:33 | CM ---
Addendum entered by Zoila Ritter 12/03/24 14:50:
CM consult completed for cost of Farxiga 10mg daily & Jardiance 10mg daily
CM called [facility] pharmacy in [place] and spoke with Mary malagon
Farxiga 10mg daily - 30 day supply - 0 copay
Jardiance 10mg daily - 30 day supply - 0 copay
tt Suzy Seals
Original Note:
Patient seen at bedside
IA completed
came from [facility] as he was there for short term rehab
states has bed hold
would like for him to return [facility]
Lives with in a 1 story home 55+ community
PLOF: independent walker
DME: walker
PCP: Gregor Diana
Pharmacy: [facility], [facility]
PLAN: Return to [facility] when medically stable
[2024-12-03 16:29] LABS: Glucose - Point of Care 172 mg/dl (70-99)
[2024-12-03] MEDS: NOVOLOG FLEXPEN-MODERATE RESISTANCE 1 UNITS SC (18:16)
[2024-12-03] MEDS: TOPROL XL 12.5 MG PO (21:01)
[2024-12-03] MEDS: REMERON 15 MG PO (21:01)
[2024-12-03 21:47] LABS: Glucose - Point of Care 156 mg/dl (70-99)
[2024-12-04 03:00] VITALS: BP 126/60
[2024-12-04 05:56] LABS: Hematocrit 45.6 % (39.0-52.0); Hemoglobin 12.8 g/dL (13.0-18.0); Mean Corp Hgb Conc. 28.1 g/dL (33.0-37.0); Mean Corpuscular Hgb 21.6 pg (27.0-31.0); Mean Platelet Volume 9.2 fL (7.4-10.4); Platelet Count 284 10^3/uL (130-400); Red Blood Cell Count 5.92 10^6/uL (4.70-6.10); White Blood Cell Count 4.3 10^3/uL (4.8-10.8)
[2024-12-04 06:00] VITALS: BMI 21.5
[2024-12-04 06:18] LABS: Blood Urea Nitrogen 42 mg/dl (9-20); Calcium 8.4 mg/dl (8.4-10.2); Carbon Dioxide 26 mmol/L (22-30); Chloride 101 mmol/L (98-107); Estimated Creatinine Clearance 35 ml/min; Glucose 138 mg/dl (70-99); Potassium 5.7 mmol/L (3.5-5.1); Sodium 129 mmol/L (135-145); eGFR 46.19
[2024-12-04 07:33] VITALS: BP 127/56
[2024-12-04 07:55] LABS: Glucose - Point of Care 130 mg/dl (70-99)
[2024-12-04] MEDS: NOVOLOG FLEXPEN-MODERATE RESISTANCE SC (08:34)
[2024-12-04] MEDS: IMDUR (EXTENDED RELEASE) 30 MG PO (08:34)
[2024-12-04] MEDS: ASPIR LOW (ENTERIC COATED) 81 MG PO (08:34)
[2024-12-04] MEDS: CRESTOR 10 MG PO (08:35)
[2024-12-04] MEDS: HEPARIN 5000 UNITS SC ×2 (08:35→20:40)
[2024-12-04] MEDS: BUMEX 1 MG IV ×2 (08:36→16:27)
[2024-12-04 08:59] LABS: Absolute Neutrophils -Man Diff 1.9 10^3/uL (1.4-6.5); Atypical Lymphocytes 5 %; Band Neutrophils 0 % (0-3); Lymphocytes 30 % (20-51); Monocytes 20 % (2-9); Segmented Neutrophils 45 % (42-75)
[2024-12-04 09:00] LABS: Platelets Checked Yes
[2024-12-04 09:01] LABS: Normal RBC Morphology Yes; Total Cells Counted 100
[2024-12-04 10:57] VITALS: BP 104/46
[2024-12-04 11:23] LABS: Glucose - Point of Care 153 mg/dl (70-99)
--- NOTE | 2024-12-04 12:06 | W.PN.HOSP.TC ---
Today's Communication/Plan
-
see A/P
Assessment / Plan
Assessment / Plan
A/P:
# Acute on chronic hypoxemic respiratory failure
# Acute heart failure
# Recurrent (?) left pleural effusion
cont 4L NC O2 support, wean as tolerated
Likely new onset heart failure (unclear etiology, previously on chemo) with recurrence (?) of left pleural effusion
Last echo in 2023 was normal with preserved LVEF and no diastolic dysfunction
check echocardiogram to assess LVEF
Cont IV Bumex now twice daily
Repeat CXR 12/04 showed worsening interstitial and alveolar pulmonary edema
Continue with beta-yesi, consider SGLT2i
Monitor on telemetry for now
Cardiology following
IR consult for L pleural effusion, follow thora labs
# Hyperkalemia
# Hypervolemic hyponatremia
Cont IV Bumex as above, sodium remained stable
potassium has downtrending
Cont potassium restricted diet
Lokelma x1 today 12/04
# CKD stage IIIb
Possibly related to renal cell carcinoma; baseline creatinine near 1.3
Not associated with anemia, acidemia, bone mineral disease
Creatinine near 1.5 here, likely within baseline versus cardiorenal elevation
Continue to trend BMP on Bumex as above
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
Status post Keytruda for immunotherapy, and course of chemotherapy
Was recently stopped on oral medication due to diarrhea and pneumonia
Will need to follow-up with oncologist after DC
Currently appears clinically decompensated
# CAD s/p CABG
# Dyslipidemia
Home regimen includes aspirin, rosuvastatin, metoprolol succinate, isosorbide
No history of cardiomyopathy, last echo with preserved LVEF
# Primary hypertension
Home regimen including metoprolol succinate, isosorbide, hydralazine daily
Cardiology discontinued daily hydralazine,
Blood pressure remained stable
# NIDDM
A1c 7.0%
Home regimen includes sitagliptin
No known history of microvascular complications
Likely associated with CAD history
Transition to ISS with Accu-Cheks here
# Depression
Remains on home nightly Remeron
Diet: Carb controlled, no added salt
DVT prophylaxis: SQ heparin
CODE STATUS: DNR
DW at beside
total time 51 min
Anticipated Discharge: > 48 hours
Subjective/Interval History
-
Date of Service: December 04, 2024
Objective Data
-
Labs:
Laboratory Results
12/04/24
05:24
WBC 4.3 L
Hgb 12.8 L
Hct 45.6
Plt Count 284
Sodium 129 L
Potassium 5.7 H
Chloride 101
Carbon Dioxide 26
BUN 42 H
Creatinine 1.5 H
Glucose 138 H
Calcium 8.4
Vital Signs:
Vital Signs
Temp Pulse Resp BP Pulse Ox
36.4 C 66 16 104/46 94
12/04/24 07:33 12/04/24 10:57 12/04/24 10:57 12/04/24 10:57 12/04/24 10:57
I&O
12/03/24 12/04/24 12/05/24
06:59 06:59 06:59
Intake Total 1050 / 1050 180 / 180
Output Total 550 / 550
Balance 1050 / 1050 -370 / -370
Review of Systems
-
History Source: Patient
All other systems: Reviewed and negative
Physical Exam
-
General: Well Developed, Comfortable, Respiratory Distress, Conversant and Appears Chronically Ill
HEENT: Normocephalic, Atraumatic, Moist Mucous Membranes and Oxygen (4L NC)
Respiratory: Non Labored Respirations; Negative Wheezes, Rhonchi or Accessory Resp Muscle Use
Cardiac: Regular Rhythm, S1/S2, JVD (Unable to assess due to habitus) and Other (2+ edema); Negative Murmur, Rub or Gallop
GI: Soft, Nontender, Nondistended and Normal Bowel Sounds
Musculoskeletal: No Clubbing, No Cyanosis, Edema, Right Lower Extrem and Edema, Left Lower Extrem
Skin: Warm and Dry; Negative Rash
Neuro: Awake, Alert and Nonfocal/Grossly Intact
Psych: Calm and Intact Judgement/Insight
Data Reviewed
-
Diagnostic Radiology: Image personally visualized and interpreted and Report Reviewed by me
Labs: Labs Reviewed by me
[2024-12-04] MEDS: LOKELMA 10 GRAM PO (12:48)
--- NOTE | 2024-12-04 12:54 | CM ---
Patient seen at bedside
cont IV Bumex
Referral in [facility] for [facility]
PLAN: [facility] when stable
[2024-12-04 13:10] LABS: LDH 196 U/L (120-246); Total Protein 5.1 g/dl (6.3-8.2)
[2024-12-04] MEDS: NOVOLOG FLEXPEN-MODERATE RESISTANCE 1 UNITS SC ×2 (14:09→18:08)
--- NOTE | 2024-12-04 14:19 | W.PN.CD ---
Addendum entered and electronically signed by Flaco Seals MD 12/04/24 15:38:
error below, 2+ pitting up through the thighs b/l with tubigrips on
Original Note:
Today's Communication / Plan
-
continue diuresis
sglt 2i when ok with nephrology
Impression / Plan
-
HFpEF - acute.
- agree with diuresis as BP allows.
- check daily weights, I&Os, TEDs.
- appreciate case management cost for [facility]---$0, will start when ok with nephrology
Pleural effusion - recurrent.
- IRAD consulted.
- per hospitalist.
CAD - s/p CABG 2006.
- no angina.
- continue medical therapy.
SUNITHA with Hyperkalemia:
-nephrology following
HTN - monitor with diuresis.
HLD - stable on Crestor, continue.
Renal cancer - mets to lung s/p chemo and Keytruda.
- per hospitalist.
- managed by [facility].
Subjective:
He is feeling a bit better.
Physical Exam
Vital Signs/Labs
Vital Signs
Temp Pulse Resp BP Pulse Ox
97 F 66 16 104/46 94
12/04/24 11:30 12/04/24 10:57 12/04/24 10:57 12/04/24 10:57 12/04/24 10:57
12/03/24 12/04/24 12/05/24
06:59 06:59 06:59
Actual Weight 148 lb 145 lb 8 oz
12/04/24 05:24
12/04/24 05:24
PT 15.5 Sec (11.4-14.6) H 12/03/24 06:25
INR 1.20 12/03/24 06:25
Magnesium 1.8 mg/dl (1.6-2.3) 12/03/24 06:25
Free T4 1.49 ng/dl (0.78-2.19) 12/03/24 06:25
12/02/24
17:23
Pjl-Y-Rietbodwgbl Pept 6790
Physical Exam
Constitutional: No acute distress
Cardiovascular: Rhythm & rate is regular, Pedal edema is absent, JVD pressure is normal and Systolic murmur absent
Respiratory: Respiratory effort normal and Crackles Present (bibasilar)
Neuro/Psych: AO x 3
Data Reviewed
-
Date of Service: December 04, 2024
Medical Decision Making: Review of Case with other Provider
EKG: Other (tele)
[2024-12-04 14:55] VITALS: BP 103/48
--- NOTE | 2024-12-04 15:18 | PTCARENOTE ---
patient denies complaints, still on 4L NC, no sob, sat oob for both breakfast and lunch, vss, will continue to monitor.
--- NOTE | 2024-12-04 15:59 | W.PN.NEPH.PH ---
Today's Communication / Plan
-
Lokelma
Bumex twice daily
Added Farxiga
Assessment/Plan
-
84 y/o male past medical history of metastatic renal cell carcinoma, recurrent pleural effusion requiring thoracentesis, CAD, HTN, and DM who presents with hyperkalemia. Patient was hospitalization at [facility] earlier this month.
Sent in for hyperkalemia 6.2
Impression.
Acute on chronic kidney disease with a baseline creatinine 1.3 presenting creatinine 1.6.
Hyperkalemia 5.9.
Lower extremity edema.
Pleural effusions.
Plan.
Continue Bumex/dose increased to twice daily
Potassium restriction
Lokelma given again today
Check bladder scan= less than 300 residual
Pending echo and thoracentesis
Okay with SGLT2 inhibitor will initiate today Farxiga
Discussed with his at the bedside
A.m. labs
-
-
Date of Service: December 04, 2024
CC / HPI / ROS
-
Chief Complaint:
Hyperkalemia edema
History of Present Illness:
Acute on chronic kidney disease shortness of breath increasing lower extremity edema and hyperkalemia
Review of Systems:
No chest pain or shortness of breath
Labs
-
Labs:
WBC 4.3 10^3/uL (4.8-10.8) L 12/04/24 05:24
RBC 5.92 10^6/uL (4.70-6.10) 12/04/24 05:24
Hgb 12.8 g/dL (13.0-18.0) L 12/04/24 05:24
Hct 45.6 % (39.0-52.0) 12/04/24 05:24
Plt Count 284 10^3/uL (130-400) 12/04/24 05:24
Sodium 129 mmol/L (135-145) L 12/04/24 05:24
Potassium 5.7 mmol/L (3.5-5.1) H 12/04/24 05:24
Chloride 101 mmol/L (98-107) 12/04/24 05:24
Carbon Dioxide 26 mmol/L (22-30) 12/04/24 05:24
BUN 42 mg/dl (9-20) H 12/04/24 05:24
Creatinine 1.5 mg/dL (0.7-1.3) H 12/04/24 05:24
eGFR 46.19 12/04/24 05:24
Glucose 138 mg/dl (70-99) H 12/04/24 05:24
Calcium 8.4 mg/dl (8.4-10.2) 12/04/24 05:24
Lzr-U-Uimqoxuxfun Pept 6790 pg/ml 12/02/24 17:23
Albumin 2.7 g/dl (3.5-5.0) L 12/02/24 17:23
Physical Exam
-
Vital Signs:
Vital Signs
Temp Pulse Resp BP Pulse Ox
97.4 F 76 14 103/48 97
12/04/24 14:55 12/04/24 14:55 12/04/24 14:55 12/04/24 14:55 12/04/24 14:55
Respiratory:: Bilateral: Coarse
Lung Excursion:: Normal
Abdomen:: Soft
Bowel Sounds:: Normal
Extremity Edema:: +2: Bilateral:
Durant Catheter: No
[2024-12-04] MEDS: FARXIGA 10 MG PO (16:26)
[2024-12-04 18:03] LABS: Glucose - Point of Care 188 mg/dl (70-99)
[2024-12-04 19:00] VITALS: BP 109/49
[2024-12-04] MEDS: REMERON 15 MG PO (20:42)
[2024-12-04] MEDS: TOPROL XL 12.5 MG PO (20:43)
[2024-12-04 21:24] LABS: Glucose - Point of Care 203 mg/dl (70-99)
[2024-12-04 23:00] VITALS: BP 108/50
[2024-12-05] VITALS (11 sets, daily range): BP systolic 59–149; BP diastolic 39–94; BMI 21.1
[2024-12-05 07:29] LABS: Blood Urea Nitrogen 40 mg/dl (9-20); Calcium 8.8 mg/dl (8.4-10.2); Carbon Dioxide 28 mmol/L (22-30); Chloride 98 mmol/L (98-107); Estimated Creatinine Clearance 35 ml/min; Glucose 122 mg/dl (70-99); Magnesium 1.8 mg/dl (1.6-2.3); Potassium 5.3 mmol/L (3.5-5.1); Sodium 131 mmol/L (135-145); eGFR 46.19
[2024-12-05 07:36] LABS: Glucose - Point of Care 118 mg/dl (70-99)
[2024-12-05] MEDS: NOVOLOG FLEXPEN-MODERATE RESISTANCE SC ×2 (07:57→11:51)
--- NOTE | 2024-12-05 07:59 | W.PN.CD ---
Today's Communication / Plan
-
- Continue Bumex 1 mg IV BID as per Nephrology recommendations.
Impression / Plan
-
HFpEF - acute.
- Continue Bumex 1 mg IV BID as per Nephrology recommendations.
- Continue to monitor daily weights, I&Os, renal function.
- Patient started on Farxiga.
Pleural effusion - recurrent.
- IRAD consulted.
- Management as per Hospitalist.
CAD - s/p CABG 2006.
- Relatively stable; denies any anginal symptoms.
- continue medical therapy with aspirin, Imdur, metoprolol succinate, and rosuvastatin.
SUNITHA with Hyperkalemia:
- Nephrology following; continue to monitor renal function.
HTN - blood pressure is fairly controlled.
- Continue current doses of lower, Toprol-XL, and Bumex.
HLD - stable on Crestor, continue.
Renal cancer - mets to lung s/p chemo and Keytruda.
- per hospitalist.
- managed by [facility].
Subjective:
No major events overnight.
Physical Exam
Vital Signs/Labs
Vital Signs
Temp Pulse Resp BP Pulse Ox
97.8 F 63 16 149/94 95
12/05/24 07:48 12/05/24 07:48 12/05/24 07:48 12/05/24 07:48 12/05/24 07:48
12/04/24 12/05/24 12/06/24
06:59 06:59 06:59
Actual Weight 65.998 kg 64.864 kg
12/05/24 06:32
PT 15.5 Sec (11.4-14.6) H 12/03/24 06:25
INR 1.20 12/03/24 06:25
Magnesium 1.8 mg/dl (1.6-2.3) 12/05/24 06:32
Free T4 1.49 ng/dl (0.78-2.19) 12/03/24 06:25
12/02/24
17:23
Yrx-Y-Cegjypcxibv Pept 6790
Physical Exam
Constitutional: No acute distress and Comfortable
EENT: Anicteric
Cardiovascular: Rhythm & rate is regular, Pedal edema present (2-3+ bilateral pitting), Systolic murmur present (2/6) and S1S2 is normal
Respiratory: Respiratory effort normal and Lungs clear to auscul.
GI: Soft
Neuro/Psych: AO x 3
Other: Skin (warm)
Data Reviewed
-
Date of Service: December 05, 2024
Echo: Report Reviewed by me (EF 60-65%)
Labs: Labs Reviewed by me
[2024-12-05 08:01] LABS: Hematocrit 51.6 % (39.0-52.0); Hemoglobin 14.4 g/dL (13.0-18.0); Mean Corp Hgb Conc. 27.9 g/dL (33.0-37.0); Mean Corpuscular Hgb 21.6 pg (27.0-31.0); Mean Corpuscular Volume 77.5 fL (80.0-94.0); Mean Platelet Volume 9.2 fL (7.4-10.4); Platelet Count 326 10^3/uL (130-400); Red Blood Cell Count 6.66 10^6/uL (4.70-6.10); Red Cell Dist. Width 25.3 % (11.5-14.5); White Blood Cell Count 4.2 10^3/uL (4.8-10.8)
--- NOTE | 2024-12-05 08:27 | W.PN.HOSP.TC ---
Today's Communication/Plan
-
Thoracocentesis c/w CHF; continue diuretics as tolerated; hold parameters added for soft BPs. Encouraged tubigrip and leg elevation.
Assessment / Plan
Assessment / Plan
A/P:
# Acute on chronic hypoxemic respiratory failure
# Acute heart failure
# Recurrent (?) left pleural effusion
Currently on 4L by [place]; start to wean as tolerated
Patient is not on O2 at home.
Likely new onset heart failure (unclear etiology, previously on chemo) with recurrence (?) of left pleural effusion
Last echo in 2023 was normal with preserved LVEF and no diastolic dysfunction
Cont IV Bumex now twice daily (soft BPs today, hold parameters added)
Repeat CXR 12/04 showed worsening interstitial and alveolar pulmonary edema
Continue with beta-yesi, SGLT2i
Monitor on telemetry for now
Cardiology, nephrology following
Thoracocentesis done today: 1500 serosanguinous; transudative effusion consistent with CHF
# Hyperkalemia
# Hypervolemic hyponatremia
Normalizing values
Cont potassium restricted diet
Continue to monitor
# CKD stage IIIb
Possibly related to renal cell carcinoma; baseline creatinine near 1.3
Not associated with anemia, acidemia, bone mineral disease
Creatinine near 1.5 here, likely within baseline versus cardiorenal elevation
Continue to trend BMP on Bumex as above
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
Status post Keytruda for immunotherapy, and course of chemotherapy
Was recently stopped on oral medication due to diarrhea and pneumonia
Will need to follow-up with oncologist after DC
Currently appears clinically decompensated
# CAD s/p CABG
# Dyslipidemia
Home regimen includes aspirin, rosuvastatin, metoprolol succinate, isosorbide
No history of cardiomyopathy, last echo with preserved LVEF
# Primary hypertension
Home regimen including metoprolol succinate, isosorbide, hydralazine daily
Cardiology discontinued daily hydralazine,
Blood pressure remained stable
# NIDDM
A1c 7.0%
Home regimen includes sitagliptin
No known history of microvascular complications
Likely associated with CAD history
Transition to ISS with Accu-Cheks here
# Depression
Remains on home nightly Remeron
Diet: Carb controlled, no added salt
DVT prophylaxis: SQ heparin
CODE STATUS: DNR
DW /daughter at beside
Anticipated Discharge: > 48 hours
Subjective/Interval History
-
Date of Service: December 05, 2024
Patient seen and examined while resting comfortably, sitting up in his chair. Patient is about to go downstairs for thoracocentesis; no acute complaints this morning.
Objective Data
-
Labs:
Laboratory Results
12/05/24
06:32
WBC 4.2 L
Hgb 14.4
Hct 51.6
Plt Count 326
Sodium 131 L
Potassium 5.3 H
Chloride 98
Carbon Dioxide 28
BUN 40 H
Creatinine 1.5 H
Glucose 122 H
Calcium 8.8
Vital Signs:
Vital Signs
Temp Pulse Resp BP Pulse Ox
97.5 F 65 18 117/56 97
12/05/24 08:03 12/05/24 08:03 12/05/24 08:03 12/05/24 08:03 12/05/24 08:03
I&O
12/04/24 12/05/24 12/06/24
06:59 06:59 06:59
Intake Total 180 / 180 840 / 840
Output Total 550 / 550 1425 / 1425
Balance -370 / -370 -585 / -585
Review of Systems
-
History Source: Patient
All other systems: Reviewed and negative
Physical Exam
-
General: No Apparent Distress, Comfortable and Conversant (speaking in full sentences)
HEENT: Normocephalic, Atraumatic and Moist Mucous Membranes
Respiratory: Clear to Auscultation; Negative Wheezes, Rales or Rhonchi
Cardiac: Regular Rhythm, S1/S2 and Murmur (/)
GI: Soft and Nontender
Musculoskeletal: No Clubbing, No Cyanosis, Edema, Right Lower Extrem and Edema, Left Lower Extrem
Skin: Warm and Dry
Neuro: Awake, Alert and Oriented
Psych: Calm
Data Reviewed
-
Labs: Labs Reviewed by me and Discussed with Patient
[2024-12-05 10:31] LABS: Body Fluid Polymorphonuclear 5.4 %; Body Fluid WBC 298 /CUMM
[2024-12-05 10:32] LABS: Body Fluid Mononuclear 94.6 %; Body Fluid pH 7.41
[2024-12-05 10:38] LABS: Body Fluid Second Tech US
[2024-12-05 10:53] LABS: Body Fluid Glucose 135 mg/dl; Body Fluid LDH 124 U/L; Body Fluid Protein 2.7 g/dl
[2024-12-05] MEDS: HEPARIN 5000 UNITS SC ×2 (11:05→19:59)
[2024-12-05] MEDS: ASPIR LOW (ENTERIC COATED) 81 MG PO (11:05)
[2024-12-05] MEDS: CRESTOR 10 MG PO (11:05)
[2024-12-05] MEDS: IMDUR (EXTENDED RELEASE) PO (11:07)
[2024-12-05] MEDS: BUMEX IV ×2 (11:07→15:46)
[2024-12-05 11:47] LABS: Glucose - Point of Care 122 mg/dl (70-99)
--- NOTE | 2024-12-05 12:03 | CM ---
Patient seen at bedside with & daughter
thoracentesis, cxr,
patient from [place] [facility]hab - bed hold per family
family to discuss with Taylor at [facility] regarding further bed hold
Referral in [facility]
WILL NEED INS AUTH
PLAN: [facility]
--- NOTE | 2024-12-05 13:25 | W.PN.UPDATE ---
Update Note
Progress Note Update
I saw and evaluated the patient. I reviewed the resident�s note and agree with findings and plan as documented in the resident�s note.
A/P:
# Acute on chronic hypoxemic respiratory failure
# Acute heart failure
# Recurrent (?) left pleural effusion
cont 4L NC O2 support, wean as tolerated
Likely new onset heart failure (unclear etiology, previously on chemo) with recurrence (?) of left pleural effusion
Last echo in 2023 was normal with preserved LVEF and no diastolic dysfunction
check echocardiogram to assess LVEF
Cont IV Bumex now twice daily (with holding parameter)
Repeat CXR 12/04 showed worsening interstitial and alveolar pulmonary edema
s/p IR L thora, removed 1500 cc of serosanguineous pleural fluid. Transudative fluid
Continue with beta-yesi, consider SGLT2i
Monitor on telemetry for now
Cardiology following
# Hyperkalemia
# Hypervolemic hyponatremia
IV Bumex as above,
potassium has downtrending
Cont potassium restricted diet
s/p Lokelma x1 12/04
sodium remained stable
# CKD stage IIIb
Possibly related to renal cell carcinoma; baseline creatinine near 1.3
Not associated with anemia, acidemia, bone mineral disease
Creatinine near 1.5 here, likely within baseline versus cardiorenal elevation
Continue to trend BMP on Bumex as above
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
Status post Keytruda for immunotherapy, and course of chemotherapy
Was recently stopped on oral medication due to diarrhea and pneumonia
Will need to follow-up with oncologist after DC
Currently appears clinically decompensated
# CAD s/p CABG
# Dyslipidemia
Home regimen includes aspirin, rosuvastatin, metoprolol succinate, isosorbide
No history of cardiomyopathy, last echo with preserved LVEF
# Primary hypertension
Home regimen including metoprolol succinate, isosorbide, hydralazine daily
Cardiology discontinued daily hydralazine,
Blood pressure remained stable
# NIDDM
A1c 7.0%
Home regimen includes sitagliptin
No known history of microvascular complications
Likely associated with CAD history
Transition to ISS with Accu-Cheks here
# Depression
Remains on home nightly Remeron
Diet: Carb controlled, no added salt
DVT prophylaxis: SQ heparin
CODE STATUS: DNR
total time 51 min
--- NOTE | 2024-12-05 14:34 | W.PN.NEPH.PH ---
Today's Communication / Plan
-
cont diuresis, follow labs
Assessment/Plan
-
84 y/o male past medical history of metastatic renal cell carcinoma, recurrent pleural effusion requiring thoracentesis, CAD, HTN, and DM who presents with hyperkalemia. Patient was hospitalization at [facility] earlier this month.
Sent in for hyperkalemia 6.2
Impression.
Acute on chronic kidney disease with a baseline creatinine 1.3 presenting creatinine 1.6.
Hyperkalemia 5.9.
Lower extremity edema.
Pleural effusions.
Plan.
stable renal function
Continue Bumex/dose increased to twice daily 12/03
Potassium restriction
expect k to improve, no LOkelma today
Check bladder scan= less than 300 residual
s/p left thoracentesis 1.5lit, echo noted normal EF, mild to mod MR, mild to mod
Okay with SGLT2 inhibitor when possible
sodium better with FR and diuresis
bp are soft, meds with holding parameters, may need midodrine
Discussed with his at the bedside
A.m. labs
-
-
Date of Service: December 05, 2024
CC / HPI / ROS
-
Chief Complaint:
Hyperkalemia edema
History of Present Illness:
Acute on chronic kidney disease shortness of breath increasing lower extremity edema and hyperkalemia
k better at 5.3, cr stable 1.5
s/p thoracentesis 1.5lit 12/05
na better at 131
Review of Systems:
No chest pain or shortness of breath at rest
has cough post procedure
Labs
-
Labs:
WBC 4.2 10^3/uL (4.8-10.8) L 12/05/24 06:32
RBC 6.66 10^6/uL (4.70-6.10) H 12/05/24 06:32
Hgb 14.4 g/dL (13.0-18.0) 12/05/24 06:32
Hct 51.6 % (39.0-52.0) 12/05/24 06:32
Plt Count 326 10^3/uL (130-400) 12/05/24 06:32
Sodium 131 mmol/L (135-145) L 12/05/24 06:32
Potassium 5.3 mmol/L (3.5-5.1) H 12/05/24 06:32
Chloride 98 mmol/L (98-107) 12/05/24 06:32
Carbon Dioxide 28 mmol/L (22-30) 12/05/24 06:32
BUN 40 mg/dl (9-20) H 12/05/24 06:32
Creatinine 1.5 mg/dL (0.7-1.3) H 12/05/24 06:32
eGFR 46.19 12/05/24 06:32
Glucose 122 mg/dl (70-99) H 12/05/24 06:32
Calcium 8.8 mg/dl (8.4-10.2) 12/05/24 06:32
Yeo-U-Addvrzozdso Pept 6790 pg/ml 12/02/24 17:23
Albumin 2.7 g/dl (3.5-5.0) L 12/02/24 17:23
Physical Exam
-
Vital Signs:
Vital Signs
Temp Pulse Resp BP Pulse Ox
97.5 F 54 14 91/39 97
12/05/24 08:30 12/05/24 11:30 12/05/24 11:30 12/05/24 11:02 12/05/24 11:30
Cardiovascular:: Regular rate and rhythm
Respiratory:: Bilateral: Coarse
Lung Excursion:: Normal
Abdomen:: Nontender and Soft
Bowel Sounds:: Normal
Extremity Edema:: +2: Bilateral:
Durant Catheter: No
--- NOTE | 2024-12-05 15:36 | WOUNDNOTE ---
R LATERAL LOWER LEG NEAR KNEE
--- NOTE | 2024-12-05 15:36 | WOUNDNOTE ---
R POSTERIOR LOWER LEG
--- NOTE | 2024-12-05 15:37 | WOUNDNOTE ---
L LATERAL LOWER LEG
--- NOTE | 2024-12-05 15:40 | WOUNDNOTE ---
[facility] RN note: Patient admitted with hyperkalemia, pleural effusion.
See H&P for complete history. From Rehab facility.
PMH: Patient is an 84 y/o male past medical history of metastatic renal cell carcinoma, recurrent pleural effusion requiring thoracentesis, CAD, HTN, and DM who presents with hyperkalemia. Patient was hospitalization at [facility] earlier
this month. During that hospitalization he was treated for pneumonia and also had a left thoracentesis for a pleural effusion.
Wound Location and type/assessment: Patient admitted with: edema both legs and weeping serosanguineous blisters, R>L. Tubigrip on R leg near knee saturated with drainage. + pedal pulses audible with Doppler, sound weaker on R than L. R dorsal knee
with ruiz dry old ulcer, suspect abrasion. Heels are intact, blanchable red. Compression already on order. Patient turned self to sides, sacrum blanchable pink. Both arms with scattered bruising and healing skin tear R arm.
Appetite: Fair, patient appears very thin. Encouraged protein in diet.
Pressure redistribution devices in place: On [place] air bed. Pillow under calves.
Plan: R leg applied adaptic and dry dressing with Isaac wrap thigh high, due to large drainage behind knee. L leg adaptic, 2x2 gauze, silicone foam then Tubigrip knee high applied. Adhesive foams to heels to protect.
Will confirm orders with hospitalist and updated nurse Areli. Updated care plan and will follow as needed.
Note to case management of equipment requested for discharge: VN for wound care if home.
Recommend follow up at wound care center upon discharge.
[2024-12-05 16:23] LABS: Glucose - Point of Care 170 mg/dl (70-99)
[2024-12-05] MEDS: NOVOLOG FLEXPEN-MODERATE RESISTANCE 1 UNITS SC (17:43)
[2024-12-05 21:30] LABS: Glucose - Point of Care 171 mg/dl (70-99)
[2024-12-05] MEDS: TOPROL XL PO (21:42)
[2024-12-05] MEDS: REMERON 15 MG PO (21:42)
[2024-12-06] VITALS (9 sets, daily range): BP systolic 94–126; BP diastolic 39–57; PULSE 76–86; O2SAT 93; BMI 20.6
[2024-12-06 06:56] LABS: Hematocrit 44.9 % (39.0-52.0); Hemoglobin 12.8 g/dL (13.0-18.0); Mean Corp Hgb Conc. 28.5 g/dL (33.0-37.0); Mean Platelet Volume 9.2 fL (7.4-10.4); Platelet Count 271 10^3/uL (130-400); Red Blood Cell Count 5.83 10^6/uL (4.70-6.10); Red Cell Dist. Width 25.1 % (11.5-14.5); White Blood Cell Count 6.4 10^3/uL (4.8-10.8)
[2024-12-06 07:15] LABS: Blood Urea Nitrogen 38 mg/dl (9-20); Calcium 8.1 mg/dl (8.4-10.2); Carbon Dioxide 26 mmol/L (22-30); Chloride 101 mmol/L (98-107); Estimated Creatinine Clearance 36 ml/min; Glucose 120 mg/dl (70-99); Magnesium 1.7 mg/dl (1.6-2.3); Potassium 4.8 mmol/L (3.5-5.1); Sodium 131 mmol/L (135-145); eGFR 50.18
[2024-12-06 07:36] LABS: Glucose - Point of Care 109 mg/dl (70-99)
[2024-12-06] MEDS: NOVOLOG FLEXPEN-MODERATE RESISTANCE SC (07:57)
[2024-12-06] MEDS: BUMEX 1 MG IV ×2 (07:59→16:18)
[2024-12-06] MEDS: IMDUR (EXTENDED RELEASE) 30 MG PO (07:59)
[2024-12-06] MEDS: CRESTOR 10 MG PO (07:59)
[2024-12-06] MEDS: ASPIR LOW (ENTERIC COATED) 81 MG PO (07:59)
--- NOTE | 2024-12-06 07:59 | W.PN.CD ---
Today's Communication / Plan
-
continue bumex 1mg bid IV, and add farxiga
unclear dry weight
trend Cr and weight
Impression / Plan
-
HFpEF - acute.
-EF 55-60%, mild/mod , mild/mod MR, nl RV, mild TR, PASP 30
-severe, requiring hospitalization, IV diuresis, and close monitoring of labs/tele
- Continue Bumex 1 mg IV BID
- nephrology communication reviewed: Farxiga started
-no aldactone due to hyperkalemia
Pleural effusion - recurrent.
- IRAD consulted. s/p left thora for 1500 cc on 12/05
CAD - s/p CABG 2006.
- stable
- continue medical therapy with aspirin, Imdur, metoprolol succinate, and rosuvastatin.
SUNITHA with Hyperkalemia: CKD3a may be baseline
- Nephrology following; continue to monitor renal function.
HTN - blood pressure is ontrolled.
- Continue Toprol XL 12.5mg daily, imdur 30mg daily
HLD - stable on Crestor, continue.
Renal cancer - mets to lung s/p chemo and Keytruda.
- per hospitalist.
- managed by [facility].
Valvular heart disease
-mild/moderate
Physical Exam
Vital Signs/Labs
Vital Signs
Temp Pulse Resp BP Pulse Ox
98.8 F 76 14 126/53 96
12/06/24 07:36 12/06/24 07:36 12/06/24 07:36 12/06/24 07:36 12/06/24 07:36
12/05/24 12/06/24 12/07/24
06:59 06:59 06:59
Actual Weight 64.864 kg 63.185 kg
12/06/24 06:33
12/06/24 06:33
PT 15.5 Sec (11.4-14.6) H 12/03/24 06:25
INR 1.20 12/03/24 06:25
Magnesium 1.7 mg/dl (1.6-2.3) 12/06/24 06:33
Free T4 1.49 ng/dl (0.78-2.19) 12/03/24 06:25
12/02/24
17:23
Jwi-K-Abfdvkrvkby Pept 6790
Physical Exam
Constitutional: No acute distress
EENT: Moist mucous membranes
Cardiovascular: Rhythm & rate is regular, Pedal edema present, JVD present and Systolic murmur present
Respiratory: Respiratory effort normal
Neuro/Psych: AO x 3
Data Reviewed
-
Date of Service: December 06, 2024
EKG: Other (SB 50s)
Labs: Labs Reviewed by me
[2024-12-06] MEDS: HEPARIN 5000 UNITS SC ×2 (08:00→21:22)
[2024-12-06] MEDS: FARXIGA 10 MG PO (10:28)
--- NOTE | 2024-12-06 10:43 | W.PN.NEPH.PH ---
Today's Communication / Plan
-
diurese
Assessment/Plan
-
84 y/o male past medical history of metastatic renal cell carcinoma, recurrent pleural effusion requiring thoracentesis, CAD, HTN, and DM who presents with hyperkalemia. Patient was hospitalization at [facility] earlier this month.
Impression.
Acute on chronic kidney disease with a baseline creatinine 1.3 presenting creatinine 1.6.
Hyperkalemia
Lower extremity edema.
Pleural effusions.
Plan.
follow BMP
continue IV Bumex BID, hope for another 5# diuresis
now on SGLT2 inhibitor
Discussed with his at the bedside
-
-
Date of Service: December 06, 2024
CC / HPI / ROS
-
Chief Complaint:
Hyperkalemia edema
History of Present Illness:
Acute on chronic kidney disease shortness of breath increasing lower extremity edema and hyperkalemia
k better at 4.8
SUNITHA/Cr down to 1.4
s/p thoracentesis 1.5lit 12/05
Na stable 131
Review of Systems:
No chest pain or shortness of breath at rest
Labs
-
Labs:
WBC 6.4 10^3/uL (4.8-10.8) 12/06/24 06:33
RBC 5.83 10^6/uL (4.70-6.10) 12/06/24 06:33
Hgb 12.8 g/dL (13.0-18.0) L 12/06/24 06:33
Hct 44.9 % (39.0-52.0) 12/06/24 06:33
Plt Count 271 10^3/uL (130-400) 12/06/24 06:33
Sodium 131 mmol/L (135-145) L 12/06/24 06:33
Potassium 4.8 mmol/L (3.5-5.1) 12/06/24 06:33
Chloride 101 mmol/L (98-107) 12/06/24 06:33
Carbon Dioxide 26 mmol/L (22-30) 12/06/24 06:33
BUN 38 mg/dl (9-20) H 12/06/24 06:33
Creatinine 1.4 mg/dL (0.7-1.3) H 12/06/24 06:33
eGFR 50.18 12/06/24 06:33
Glucose 120 mg/dl (70-99) H 12/06/24 06:33
Calcium 8.1 mg/dl (8.4-10.2) L 12/06/24 06:33
Fcb-I-Kqypvmugdpc Pept 6790 pg/ml 12/02/24 17:23
Albumin 2.7 g/dl (3.5-5.0) L 12/02/24 17:23
Physical Exam
-
Vital Signs:
Vital Signs
Temp Pulse Resp BP Pulse Ox
98.8 F 76 14 126/53 96
12/06/24 07:36 12/06/24 07:36 12/06/24 07:36 12/06/24 07:36 12/06/24 07:36
Cardiovascular:: Regular rate and rhythm
Respiratory:: Bilateral: Coarse
Lung Excursion:: Normal
Abdomen:: Nontender and Soft
Bowel Sounds:: Normal
Extremity Edema:: +2: Bilateral:
[2024-12-06 11:48] LABS: Glucose - Point of Care 163 mg/dl (70-99)
[2024-12-06] MEDS: NOVOLOG FLEXPEN-MODERATE RESISTANCE 1 UNITS SC (12:37)
--- NOTE | 2024-12-06 15:04 | W.PN.HOSP.TC ---
Addendum entered and electronically signed by Dayanna Boateng MD 12/06/24 18:35:
I saw and evaluated the patient independently. I reviewed the resident�s note and agree with findings and plan as documented by Dr. Pleitez.
GENERAL: well developed, well nourished, male in no apparent distress
HEENT: NC/AT--O2 NC in place
HEART: regular rate and rhythm, +S1, +S2
LUNGS : crackles bilaterally
ABDOM: soft, nontender, nondistended, + bowel sounds
EXT: no cyanosis, clubbing-- 2+ LE edema bilaterally
NEUROLOGIC: grossly intact
Acute on chronic hypoxemic respiratory failure due to Acute heart failure with Recurrent (?) left pleural effusion--does not wear O2 at home--on 2L--wean to off as able- 2 prior thoracocentesis, 1 at last admission ([place]) and once at rehab
([facility]Last echo in 2023 was normal with preserved LVEF and no diastolic dysfunction--Cont IV Bumex 1mg now BID (soft BPs over last 2 days)--apprec cards--midodrine started with holding parameters--Repeat CXR 12/04 showed worsening interstitial
and alveolar pulmonary edema--Continue with beta-yesi, LMOH3l---Oztaajrljvfjv (12/05): 1500mL serosanguineous; transudative effusion consistent with CHF
Hyperkalemia/Hypervolemic hyponatremia--apprec renal/cards--fluid restriction
hypotension--relative with soft systolic BPs--cont midodrine--TFTs WNL--check random cortisol in AM
CKD stage IIIb--Possibly related to renal cell carcinoma; baseline creatinine near 1.3--Not associated with anemia, acidemia, bone mineral disease--Creatinine 1.4 today, improving, likely within baseline versus cardiorenal elevation--Continue to
trend BMP on Bumex as above
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
CAD s/p CABG/Dyslipidemia--cont asa, statin, toprol, imdur--Hold parameters on metoprolol and isosorbide due to soft pressures
Essential hypertension--cont meds as able based on BPs--hydralazine d/c'd by cards
type 2 NIDDM--A1c 7.0%--Home regimen includes sitagliptin--No known history of microvascular complications
Depression--Remains on home nightly Remeron
DVT proph--SQ heparin
CODE STATUS--DNR
Original Note:
Today's Communication/Plan
-
Lower O2 requirement today, wean as tolerated. PT/OT as tolerated. Continue Bumex, Farxiga added. Patient continues to have soft pressures, start Midodrine TID (hold for SBP >110). Holding parameters on HTN/CAD meds.
Assessment / Plan
Assessment / Plan
A/P:
# Acute on chronic hypoxemic respiratory failure
# Acute heart failure
# Recurrent (?) left pleural effusion
Currently on 3L by [place]; improvement from admission, was on O2 at [facility], but otherwise does not use O2 at home
Likely new onset heart failure (unclear etiology, previously on chemo) with recurrence of left pleural effusion
- 2 prior thoracocentesis, 1 at last admission ([place]) and once at rehab ([facility])
Last echo in 2023 was normal with preserved LVEF and no diastolic dysfunction
Cont IV Bumex 1mg now BID (soft BPs over last 2 days)
- Start Midodrine 2.5 mg PO BID, hold for SBP > 110
Repeat CXR 12/04 showed worsening interstitial and alveolar pulmonary edema
Continue with beta-yesi, SGLT2i
Monitor on telemetry for now
Cardiology, nephrology following
Thoracocentesis (12/05): 1500mL serosanguinous; transudative effusion consistent with CHF
# Hyperkalemia
# Hypervolemic hyponatremia
Normalizing values
Cont potassium restricted diet
Continue to monitor
# CKD stage IIIb
Possibly related to renal cell carcinoma; baseline creatinine near 1.3
Not associated with anemia, acidemia, bone mineral disease
Creatinine 1.4 today, improving, likely within baseline versus cardiorenal elevation
Continue to trend BMP on Bumex as above
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
Status post Keytruda for immunotherapy, and course of chemotherapy
Was recently stopped on oral medication due to diarrhea and pneumonia
Will need to follow-up with oncologist after DC
Currently appears clinically decompensated
# CAD s/p CABG
# Dyslipidemia
Home regimen includes aspirin, rosuvastatin, metoprolol succinate, isosorbide
No history of cardiomyopathy, last echo with preserved LVEF
Hold parameters on metoprolol and isosorbide due to soft pressures
# Primary hypertension
Home regimen including metoprolol succinate, isosorbide, hydralazine daily
Cardiology discontinued daily hydralazine,
Blood pressure remained stable
Hold parameters on metoprolol and isosorbide due to soft pressures
# NIDDM
A1c 7.0%
Home regimen includes sitagliptin
No known history of microvascular complications
Likely associated with CAD history
Transition to ISS with Accu-Cheks here
# Depression
Remains on home nightly Remeron
Diet: Carb controlled, no added salt
DVT prophylaxis: SQ heparin
CODE STATUS: DNR
DW /daughter at beside
Anticipated Discharge: 24 - 48 hours
Subjective/Interval History
-
Date of Service: December 06, 2024
Patient seen and examined well sitting up comfortably in chair, eating lunch. Patient's is at bedside. Patient denies any acute complaints, states he feels his breathing is doing better. Patient denies any dizziness while working with PT,
shortness of breath with exertion, orthopnea. Patient states that his plan at discharge is to go back to [facility] to continue his rehab prior to returning home.
Objective Data
-
Labs:
Laboratory Results
12/06/24
06:33
WBC 6.4
Hgb 12.8 L
Hct 44.9
Plt Count 271
Sodium 131 L
Potassium 4.8
Chloride 101
Carbon Dioxide 26
BUN 38 H
Creatinine 1.4 H
Glucose 120 H
Calcium 8.1 L
Vital Signs:
Vital Signs
Temp Pulse Resp BP Pulse Ox
97.3 F 72 16 95/44 96
12/06/24 11:15 12/06/24 11:15 12/06/24 11:15 12/06/24 11:15 12/06/24 11:15
I&O
12/05/24 12/06/24 12/07/24
06:59 06:59 06:59
Intake Total 840 / 840 900 / 900
Output Total 1425 / 1425 200 / 200
Balance -585 / -585 700 / 700
Review of Systems
-
History Source: Patient
All other systems: Reviewed and negative
Constitutional: Reports No Symptoms; Denies Fever
Respiratory: Reports No Symptoms; Denies Cough or Trouble Breathing
Cardiac: Reports No Symptoms; Denies Chest Pain or Syncope
Musculoskeletal: Reports Edema
Skin: Reports Other (Venous stasis dermatitis, wound on back of right knee)
Neuro: Reports No Symptoms; Denies Dizzy
Physical Exam
-
General: Comfortable and Conversant
HEENT: Normocephalic and Atraumatic
Respiratory: Crackles (Bibasilar)
Cardiac: Regular Rhythm and Murmur (2 out of 6 holosystolic murmur)
GI: Soft and Nontender
Musculoskeletal: No Clubbing, No Cyanosis and Other (Venous stasis changes bilaterally, 2+ pitting edema to the left lower extremity, 1+ pitting edema to the right lower extremity due to presence of Tubigrip on that leg alone)
Skin: Warm and Dry
Neuro: Awake, Alert, AO x 3 and No Motor Deficits
Psych: Calm
Data Reviewed
-
Labs: Labs Reviewed by me, Discussed with Patient and Discussed with Family
--- NOTE | 2024-12-06 16:05 | CM ---
Patient seen at bedside with physician and patient . Per patient bed hold still in process, will need auth when medically appropriate for return. CM will call to [facility] liaison and continue to follow for discharge planning needs.
[2024-12-06 16:26] LABS: Glucose - Point of Care 186 mg/dl (70-99)
[2024-12-06] MEDS: ProAmatine 2.5 MG PO (18:32)
[2024-12-06] MEDS: NOVOLOG FLEXPEN-MODERATE RESISTANCE 184 UNITS SC (18:34)
[2024-12-06] MEDS: REMERON 15 MG PO (21:22)
[2024-12-06] MEDS: TOPROL XL 12.5 MG PO (21:22)
[2024-12-06 21:48] LABS: Glucose - Point of Care 162 mg/dl (70-99)
--- NOTE | 2024-12-07 00:21 | PTCARENOTE ---
patient was offered bodily hygiene multiple times, but refused.
[2024-12-07 03:00] VITALS: BP 141/66
[2024-12-07 03:30] VITALS: BMI 20.4
[2024-12-07 06:50] LABS: Hematocrit 45.8 % (39.0-52.0); Mean Corp Hgb Conc. 28.4 g/dL (33.0-37.0); Mean Corpuscular Hgb 21.7 pg (27.0-31.0); Mean Corpuscular Volume 76.5 fL (80.0-94.0); Mean Platelet Volume 8.9 fL (7.4-10.4); Platelet Count 252 10^3/uL (130-400); Red Blood Cell Count 5.99 10^6/uL (4.70-6.10); Red Cell Dist. Width 24.3 % (11.5-14.5)
[2024-12-07 07:12] LABS: Blood Urea Nitrogen 38 mg/dl (9-20); Calcium 7.9 mg/dl (8.4-10.2); Carbon Dioxide 26 mmol/L (22-30); Chloride 100 mmol/L (98-107); Estimated Creatinine Clearance 36 ml/min; Glucose 131 mg/dl (70-99); Potassium 4.7 mmol/L (3.5-5.1); Sodium 132 mmol/L (135-145); eGFR 50.18
[2024-12-07 07:19] VITALS: BP 131/56
[2024-12-07 07:33] LABS: Cortisol, Random 14.3 ug/dl
[2024-12-07 07:52] LABS: Glucose - Point of Care 116 mg/dl (70-99)
[2024-12-07] MEDS: NOVOLOG FLEXPEN-MODERATE RESISTANCE SC (08:08)
[2024-12-07] MEDS: CRESTOR 10 MG PO (08:09)
[2024-12-07] MEDS: ProAmatine PO ×2 (08:10→17:54)
[2024-12-07] MEDS: IMDUR (EXTENDED RELEASE) 30 MG PO (08:10)
[2024-12-07] MEDS: ASPIR LOW (ENTERIC COATED) 81 MG PO (08:10)
[2024-12-07] MEDS: FARXIGA 10 MG PO (08:11)
[2024-12-07] MEDS: BUMEX 1 MG IV (08:11)
[2024-12-07] MEDS: HEPARIN 5000 UNITS SC ×2 (08:13→21:34)
--- NOTE | 2024-12-07 08:18 | W.PN.CD ---
Addendum entered and electronically signed by Colt Anaya MD 12/07/24 09:43:
I saw and examined the patient.
The STUDENT OUTREACH COORDINATOR's note was reviewed and I agree with the note.
Comment:
84-year-old man with metastatic cancer who presents with HFpEF exacerbation, lower extremity edema, pleural effusion status postthoracentesis. He reports that he had a near fall today going to the bathroom. On my exam he is lying flat and
breathing comfortably.
Physical exam with continued lower extremity edema, decreased breath sounds at the right base
Continue IV diuresis with Bumex 1 mg twice daily. Creatinine and BUN are stable. Weight continues to downtrend. Continue Farxiga. No spironolactone due to hyperkalemia.
Original Note:
Today's Communication / Plan
-
-continue IV Bumex and Farxiga and monitor response and renal function
Impression / Plan
-
HFpEF - acute. Improving, weight down, O2 being weaned (in my discussion with nursing), feels breathing better
-EF 55-60%, mild/mod , mild/mod MR, nl RV, mild TR, PASP 30
-severe, requiring hospitalization, IV diuresis, and close monitoring of labs/tele
-Continue Bumex 1 mg IV BID
-Farxiga initiated
-no aldactone due to hyperkalemia
-breathing improved, but he is still overloaded
Pleural effusion - recurrent.
- IRAD consulted. s/p left thora for 1500 cc on 12/05
CAD - s/p CABG 2006.
- stable
- continue medical therapy with aspirin, Imdur, metoprolol succinate, and rosuvastatin.
SUNITHA with Hyperkalemia: CKD3a may be baseline
- Nephrology following; continue to monitor renal function.
HTN - stable
-Continue Toprol XL 12.5mg daily, imdur 30mg daily
-BP was low 2 days ago and last evening he received midodrine x 1. BP now stable.
HLD - stable on Crestor, continue.
Renal cancer - mets to lung s/p chemo and Keytruda.
- per hospitalist.
- managed by [facility].
Valvular heart disease
-mild/moderate
Physical Exam
Vital Signs/Labs
Vital Signs
Temp Pulse Resp BP Pulse Ox
97.4 F 75 17 131/56 95
12/07/24 07:19 12/07/24 07:19 12/07/24 07:19 12/07/24 08:10 12/07/24 07:19
12/06/24 12/07/24 12/08/24
06:59 06:59 06:59
Actual Weight 63.185 kg 62.641 kg
12/07/24 06:14
12/07/24 06:14
PT 15.5 Sec (11.4-14.6) H 12/03/24 06:25
INR 1.20 12/03/24 06:25
Magnesium 1.7 mg/dl (1.6-2.3) 12/06/24 06:33
Free T4 1.49 ng/dl (0.78-2.19) 12/03/24 06:25
12/02/24
17:23
Hrd-W-Gcebrrjtapq Pept 6790
Physical Exam
Constitutional: No acute distress
EENT: Anicteric
Cardiovascular: Rhythm & rate is regular, Pedal edema present and Systolic murmur present
Respiratory: Respiratory effort normal, Crackles Present (left base, diminished to right base) and Other (on O2 by NC)
Neuro/Psych: AO x 3
Data Reviewed
-
Date of Service: December 07, 2024
EKG: Other (tele SR)
Labs: Labs Reviewed by me
[2024-12-07 10:54] VITALS: BP 115/53
--- NOTE | 2024-12-07 10:54 | W.PN.NEPH.PH ---
Today's Communication / Plan
-
Hold diuretics today with near syncope
Check orthostatics
Assessment/Plan
-
84 y/o male past medical history of metastatic renal cell carcinoma, recurrent pleural effusion requiring thoracentesis, CAD, HTN, and DM who presents with hyperkalemia. Patient was hospitalization at [facility] earlier this month.
Impression.
Acute on chronic kidney disease with a baseline creatinine 1.3 presenting creatinine 1.6.
Hyperkalemia
Lower extremity edema.
Pleural effusions.
Plan.
follow BMP
now on SGLT2 inhibitor
Patient had near syncope event while going to the bathroom.
Weights are down greater than 10 pounds since admission
Hypotensive yesterday likely orthostatic
We will asked to check orthostatics
Will discontinue diuretics for today
Discussed with family member at bedside
-
-
Date of Service: December 07, 2024
CC / HPI / ROS
-
Chief Complaint:
Hyperkalemia edema
History of Present Illness:
Acute on chronic kidney disease shortness of breath increasing lower extremity edema and hyperkalemia
k better at 4.8
SUNITHA/Cr down to 1.4
s/p thoracentesis 1.5lit 6/2
Na stable 131
Review of Systems:
No chest pain or shortness of breath at rest
Labs
-
Labs:
WBC 6.0 10^3/uL (4.8-10.8) 12/07/24 06:14
RBC 5.99 10^6/uL (4.70-6.10) 12/07/24 06:14
Hgb 13.0 g/dL (13.0-18.0) 12/07/24 06:14
Hct 45.8 % (39.0-52.0) 12/07/24 06:14
Plt Count 252 10^3/uL (130-400) 12/07/24 06:14
Sodium 132 mmol/L (135-145) L 12/07/24 06:14
Potassium 4.7 mmol/L (3.5-5.1) 12/07/24 06:14
Chloride 100 mmol/L (98-107) 12/07/24 06:14
Carbon Dioxide 26 mmol/L (22-30) 12/07/24 06:14
BUN 38 mg/dl (9-20) H 12/07/24 06:14
Creatinine 1.4 mg/dL (0.7-1.3) H 12/07/24 06:14
eGFR 50.18 12/07/24 06:14
Glucose 131 mg/dl (70-99) H 12/07/24 06:14
Calcium 7.9 mg/dl (8.4-10.2) L 12/07/24 06:14
Tdb-F-Znunvgilymf Pept 6790 pg/ml 12/02/24 17:23
Albumin 2.7 g/dl (3.5-5.0) L 12/02/24 17:23
Physical Exam
-
Vital Signs:
Vital Signs
Temp Pulse Resp BP Pulse Ox
97.4 F 72 16 115/53 99
12/07/24 10:54 12/07/24 10:54 12/07/24 10:54 12/07/24 10:54 12/07/24 10:54
Cardiovascular:: Regular rate and rhythm
Respiratory:: Bilateral: Coarse
Lung Excursion:: Normal
Abdomen:: Nontender and Soft
Bowel Sounds:: Normal
Extremity Edema:: +2: Bilateral:
[2024-12-07 12:11] LABS: Glucose - Point of Care 156 mg/dl (70-99)
--- NOTE | 2024-12-07 13:03 | PTCARENOTE ---
About 0845hrs pt had near fall in entrance to restroom. Fall detained by PCT but large skin tears incurred on left upper arm and right forearm. Wounds cleansed., approximated, and dressed. MD notified and wound care consulted.
[2024-12-07] MEDS: NOVOLOG FLEXPEN-MODERATE RESISTANCE 1 UNITS SC ×2 (13:48→17:49)
[2024-12-07] MEDS: ProAmatine 2.5 MG PO (13:49)
--- NOTE | 2024-12-07 13:55 | W.PN.HOSP.TC ---
Addendum entered and electronically signed by Dayanna Boateng MD 12/07/24 15:53:
I saw and evaluated the patient independently. I reviewed the resident�s note and agree with findings and plan as documented by Dr. Pleitez.
GENERAL: well developed, well nourished, male in no apparent distress
HEENT: NC/AT--O2 NC in place
HEART: regular rate and rhythm, +S1, +S2
LUNGS : crackles bilaterally
ABDOM: soft, nontender, nondistended, + bowel sounds
EXT: no cyanosis, clubbing-- 2+ LE edema bilaterally
NEUROLOGIC: grossly intact
Acute on chronic hypoxemic respiratory failure due to Acute heart failure with Recurrent (?) left pleural effusion--does not wear O2 at home--on 2L--wean to off as able- 2 prior thoracocentesis, 1 at last admission ([facility]) and once at rehab
([facility])--Last echo in 2023 was normal with preserved LVEF and no diastolic dysfunction--cards recommending continue diuresis, renal recommending holding diuresis--maybe restart tomorrow at daily dosing rather than BID....orthostatics not done
correctly but does not appear orthostatic --midodrine started with holding parameters--Repeat CXR 12/04 showed worsening interstitial and alveolar pulmonary edema--Continue with beta-yesi, [id number]---Kmdsoiyrhwlsu (12/05): 1500mL serosanguineous;
transudative effusion consistent with CHF--
Hyperkalemia/Hypervolemic hyponatremia--apprec renal/cards--fluid restriction
hypotension--relative with soft systolic BPs--cont midodrine--cortisol WNL, TFTs not bad enough to cause hypotension
CKD stage IIIb--Possibly related to renal cell carcinoma; baseline creatinine near 1.3--Not associated with anemia, acidemia, bone mineral disease--Creatinine 1.4 today, improving, likely within baseline versus--Continue to trend BMP on Bumex as
above
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
contribution his lung mets are contributing to his hypoxemia
fall with skin tear--patient reports that he was not lightheaded, dizzy, weak, short of breath, or having chest pain--he states that he tripped over the elevated marble getting in to the bathroom in his hospital room--consult wound care
CAD s/p CABG/Dyslipidemia--cont asa, statin, toprol, imdur--Hold parameters on metoprolol and isosorbide due to soft pressures
Essential hypertension--cont meds as able based on BPs--hydralazine d/c'd by cards
type 2 NIDDM--A1c 7.0%--Home regimen includes sitagliptin--No known history of microvascular complications
Depression--Remains on home nightly Remeron
DVT proph--SQ heparin
CODE STATUS--DNR
Original Note:
Today's Communication/Plan
-
.
Assessment / Plan
Assessment / Plan
A/P:
# Acute on chronic hypoxemic respiratory failure
# Acute heart failure
# Recurrent (?) left pleural effusion
Currently on 3L by AR; improvement from admission, was on O2 at [facility], but otherwise does not use O2 at home
Wean O2 as tolerated
Likely new onset heart failure (unclear etiology, previously on chemo) with recurrence of left pleural effusion
- 2 prior thoracocentesis, 1 at last admission ([facility]) and once at rehab ([facility])
Last echo in 2023 was normal with preserved LVEF and no diastolic dysfunction
Cont IV Bumex 1mg now BID
- Continue midodrine 2.5 mg PO BID, hold for SBP > 110 (blood pressures appear much more amenable to diuresis)
Repeat CXR 12/04 showed worsening interstitial and alveolar pulmonary edema
Continue with beta-yesi, SGLT2i
Monitor on telemetry for now
Cardiology, nephrology following
Thoracocentesis (12/05): 1500mL serosanguinous; transudative effusion consistent with CHF
# Hyperkalemia
# Hypervolemic hyponatremia
Normalizing values
Cont potassium restricted diet
Continue to monitor
# CKD stage IIIb
Possibly related to renal cell carcinoma; baseline creatinine near 1.3
Not associated with anemia, acidemia, bone mineral disease
Creatinine 1.4 today, improving, likely within baseline versus cardiorenal elevation
Continue to trend BMP on Bumex as above
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
Status post Keytruda for immunotherapy, and course of chemotherapy
Was recently stopped on oral medication due to diarrhea and pneumonia
Will need to follow-up with oncologist after DC
Currently appears clinically decompensated
# CAD s/p CABG
# Dyslipidemia
Home regimen includes aspirin, rosuvastatin, metoprolol succinate, isosorbide
No history of cardiomyopathy, last echo with preserved LVEF
Hold parameters on metoprolol and isosorbide due to soft pressures
# Primary hypertension
Home regimen including metoprolol succinate, isosorbide, hydralazine daily
Cardiology discontinued daily hydralazine,
Blood pressure remained stable
Hold parameters on metoprolol and isosorbide due to previously soft pressures: Midodrine on board
# NIDDM
A1c 7.0%
Home regimen includes sitagliptin
No known history of microvascular complications
Likely associated with CAD history
Transition to ISS with Accu-Cheks here
# Depression
Remains on home nightly Remeron
#Near Fall
Obtain orthostatic vital signs
Wound care team for injury to forearm
Continue to monitor blood pressures
PT OT as tolerated
Diet: Carb controlled, no added salt
DVT prophylaxis: SQ heparin
CODE STATUS: DNR
DW /daughter at beside
Anticipated Discharge: 24 - 48 hours
Subjective/Interval History
-
Date of Service: December 07, 2024
Patient seen and examined while resting comfortably in bed. , daughter and son are all at bedside. Patient stated earlier this morning that he was feeling well, denied SOB, or dyspnea while undergoing PT yesterday. Upon revisiting patient, had
heard that he had a near-fall in the doorway to the bathroom while being assisted by the tech. Per patient, he did not feel dizzy or lightheaded prior to the near-fall, and instead felt that he may have tripped on the step leading to the doorway.
During this even, patient states that some skin on forearm sloughed off, since patient has chronically thin skin. Otherwise, patient with no acute complaints.
Objective Data
-
Labs:
Laboratory Results
12/07/24
06:14
WBC 6.0
Hgb 13.0
Hct 45.8
Plt Count 252
Sodium 132 L
Potassium 4.7
Chloride 100
Carbon Dioxide 26
BUN 38 H
Creatinine 1.4 H
Glucose 131 H
Calcium 7.9 L
Vital Signs:
Vital Signs
Temp Pulse Resp BP Pulse Ox
97.4 F 72 16 115/53 99
12/07/24 10:54 12/07/24 10:54 12/07/24 10:54 12/07/24 10:54 12/07/24 10:54
I&O
12/06/24 12/07/24 12/08/24
06:59 06:59 06:59
Intake Total 900 / 900 1300 / 1300
Output Total 200 / 200 1325 / 1325
Balance 700 / 700 -
Review of Systems
-
History Source: Patient
All other systems: Reviewed and negative
Constitutional: Reports No Symptoms
Respiratory: Reports No Symptoms
Cardiac: Reports No Symptoms
Musculoskeletal: Reports Edema
Neuro: Reports No Symptoms
Physical Exam
-
General: Comfortable, Conversant and Other (Frail, elderly)
HEENT: Normocephalic, Atraumatic and Anicteric
Respiratory: Crackles and Non Labored Respirations
Cardiac: Regular Rhythm, S1/S2 and Murmur (2/6 systolic)
GI: Soft and Nontender
Musculoskeletal: No Clubbing, No Cyanosis, Edema, Right Lower Extrem and Edema, Left Lower Extrem
Skin: Warm, Dry and Other (Tubigrip's to both lower extremities, venous stasis changes, dermal abrasion to the left forearm covered by bandage)
Neuro: Awake, Alert, Oriented and No Motor Deficits
Psych: Calm
Data Reviewed
-
Labs: Labs Reviewed by me and Discussed with Patient
--- NOTE | 2024-12-07 14:13 | PN.CDI ---
CDI
- -
CDI:
Physician Documentation Request
Admit Date: 12/02/24 21:40
Dear Doctor Vianca,
12/07 Nephrology PN: 'Acute on chronic kidney disease with a baseline creatinine 1.3 presenting creatinine 1.6...SUNITHA/Cr down to 1.4'
Laboratory Tests
12/02/24 12/03/24 12/05/24
17:23 06:25 06:32
Creatinine 1.5 H 1.4 H 1.5 H
The purpose of this query is not to question medical judgement, but to ensure the accuracy of the conditions reported for your patient.
There is either a lack of clinical support for this condition in the current medical record, or there is a lack of recognized standard criteria to support the condition.
Criteria for SUNITHA*
1 Increase in serum creatinine by > or = to 0.3 mg/dL (> or = to 26.5 micromol/L) within 48 hours, OR
2 Increase in serum creatinine to > or = to 1.5 times baseline, which is known or presumed to have occurred within 7 days, OR
3 Urine volume < 0.5 nL/kg/hour for six hours
The request is for one of the following:
- Additional documentation to support the condition. Indicate if this is in lieu of what may be considered standard criteria, and/or support why the standard criteria may not be present for this patient.
- A more appropriate diagnosis, reflecting the patient's condition
- SUNITHA remains a known or suspected condition for this patient and is further supported by (include additional documentation in the medical record)
- SUNITHA has been ruled out and a more appropriate diagnosis for this patient's condition is .
- Other (please specify)
- Unable to determine
Use of terms such as suspected, likely, concern for, or probable (associated with a specific diagnosis that is being evaluated, monitored, or treated as if it exists) are acceptable and can be coded in the inpatient setting, when documented at the
time of discharge.
Thank you,
Madisyn Gupta RN, BSN
CDI Specialist
Available via [facility] text
Please use your independent medical judgment in providing your response.
--- NOTE | 2024-12-07 15:10 | WOUNDNOTE ---
RIGHT UPPER ARM
--- NOTE | 2024-12-07 15:11 | WOUNDNOTE ---
RIGHT ANTERIOR KNEE
--- NOTE | 2024-12-07 15:12 | WOUNDNOTE ---
BILATERAL LOWER LEGS
[2024-12-07 15:13] VITALS: BP 102/47
--- NOTE | 2024-12-07 15:13 | WOUNDNOTE ---
LEFT LATERAL LOWER LEG
--- NOTE | 2024-12-07 15:13 | WOUNDNOTE ---
LEFT LATERAL LOWER LEG
--- NOTE | 2024-12-07 15:14 | WOUNDNOTE ---
RIGHT LATERAL LOWER LEG
--- NOTE | 2024-12-07 15:15 | WOUNDNOTE ---
RIGHT POSTERIOR KNEE
--- NOTE | 2024-12-07 15:17 | CM ---
Patient seen at bedside with patient family members and physicians in room on . Patient for return to [facility] private bed hold. CM will need to do auth when medically appropriate. NPI for Dr. Velazquez is [id number]/[facility] . Report
number is [phone]/fax [phone]. CM will need auth when medically appropriate for transfer. CM will continue to follow for discharge planning needs.
Plan; return to [facility]; private bed hold and auth needed.
--- NOTE | 2024-12-07 15:20 | WOUNDNOTE ---
WO RN NOTE: Patient had fall this morning resulting in skin tears to right and left arms. RN Irvin provided initial wound care and appropriately applied steri-strips to wounds. Pictures were taken during assessment and wounds were dressed with
adaptic over open areas, ABD and carmen. Also noted during assessment was a bruise to right posterior knee. Right knee wound with adherent slough and alginate applied and order updated. Patient has new stage 1 to sacrum and silicone border foam
applied. Air cushion to chair. Patient is on a Versa Care Air bed and reports fair appetite. All other wound care provided as ordered. Will follow as needed. Patient has several comorbidities including respiratory failure, renal cell carcinoma with
lung mets, and diabetes. Wounds may worsen and new wounds may develop even with optimal care.
[2024-12-07 16:24] LABS: Glucose - Point of Care 167 mg/dl (70-99)
[2024-12-07 19:00] VITALS: BP 120/52
[2024-12-07 21:28] LABS: Glucose - Point of Care 162 mg/dl (70-99)
[2024-12-07] MEDS: TOPROL XL 12.5 MG PO (21:34)
[2024-12-07] MEDS: REMERON 15 MG PO (21:35)
[2024-12-07 23:00] VITALS: BP 115/57
[2024-12-08] VITALS (8 sets, daily range): BP systolic 94–127; BP diastolic 46–61; PULSE 69–75; O2SAT 94
[2024-12-08 06:59] LABS: Hematocrit 46.8 % (39.0-52.0); Hemoglobin 13.4 g/dL (13.0-18.0); Mean Corp Hgb Conc. 28.6 g/dL (33.0-37.0); Mean Platelet Volume 9.4 fL (7.4-10.4); Platelet Count 268 10^3/uL (130-400); Red Blood Cell Count 6.08 10^6/uL (4.70-6.10); Red Cell Dist. Width 24.4 % (11.5-14.5); White Blood Cell Count 6.6 10^3/uL (4.8-10.8)
[2024-12-08 07:39] LABS: Blood Urea Nitrogen 38 mg/dl (9-20); Calcium 8.3 mg/dl (8.4-10.2); Carbon Dioxide 30 mmol/L (22-30); Chloride 98 mmol/L (98-107); Estimated Creatinine Clearance 38 ml/min; Glucose 111 mg/dl (70-99); Potassium 4.6 mmol/L (3.5-5.1); Sodium 133 mmol/L (135-145); eGFR 54.85
[2024-12-08 07:47] LABS: Glucose - Point of Care 121 mg/dl (70-99)
[2024-12-08] MEDS: CRESTOR 10 MG PO (08:18)
[2024-12-08] MEDS: IMDUR (EXTENDED RELEASE) 30 MG PO (08:18)
[2024-12-08] MEDS: NOVOLOG FLEXPEN-MODERATE RESISTANCE SC (08:18)
[2024-12-08] MEDS: ASPIR LOW (ENTERIC COATED) 81 MG PO (08:18)
[2024-12-08] MEDS: HEPARIN 5000 UNITS SC ×2 (08:19→21:08)
[2024-12-08] MEDS: FARXIGA 10 MG PO (08:19)
[2024-12-08] MEDS: ProAmatine PO ×2 (08:22→17:21)
--- NOTE | 2024-12-08 09:00 | W.PN.CD ---
Today's Communication / Plan
-
-Bumex held by nephrology. Would favor every other day dosing or a once a day standing dose. With his cachexia may replace fluid with mass so daily weight dosing will be challenging. But with the initiation of farxiga, he will likely be able to
lower his loop diuretic dose. Will review with nephrology and medicine.
-would love to avoid midodrine use
Impression / Plan
-
HFpEF - acute. Improving, weight down, O2 being weaned (in my discussion with nursing), feels breathing better
-EF 55-60%, mild/mod , mild/mod MR, nl RV, mild TR, PASP 30
-severe, requiring hospitalization, IV diuresis, and close monitoring of labs/tele
-Bumex held by nephrology. Would favor every other day dosing or a once a day standing dose. With his cachexia may replace fluid with mass so daily weight dosing will be challenging. But with the initiation of farxiga, he will likely be able to
lower his loop diuretic dose. Will review with nephrology and medicine.
-would love to avoid midodrine use
-Farxiga initiated
-no aldactone due to hyperkalemia
-breathing improved, but he is still overloaded
Pleural effusion - recurrent.
- IRAD consulted. s/p left thora for 1500 cc on 12/05
CAD - s/p CABG 2006.
- stable
- continue medical therapy with aspirin, Imdur, metoprolol succinate, and rosuvastatin.
SUNITHA with Hyperkalemia: CKD3a may be baseline
- Nephrology following; continue to monitor renal function.
HTN - stable
-Continue Toprol XL 12.5mg daily, imdur 30mg daily
-BP was low 2 days ago and last evening he received midodrine x 1. BP now stable.
HLD - stable on Crestor, continue.
Renal cancer - mets to lung s/p chemo and Keytruda.
- per hospitalist.
- managed by [facility].
Valvular heart disease
-mild/moderate
Subjective:
he denies sob or LH.
Physical Exam
Vital Signs/Labs
Vital Signs
Temp Pulse Resp BP Pulse Ox
98.3 F 73 17 111/61 95
12/08/24 07:05 12/08/24 07:05 12/08/24 07:05 12/08/24 07:05 12/08/24 07:05
12/07/24 12/08/24 12/09/24
06:59 06:59 06:59
Actual Weight 138 lb 1.6 oz 135 lb 3 oz
12/08/24 06:32
12/08/24 06:32
PT 15.5 Sec (11.4-14.6) H 12/03/24 06:25
INR 1.20 12/03/24 06:25
Magnesium 1.7 mg/dl (1.6-2.3) 12/06/24 06:33
Free T4 1.49 ng/dl (0.78-2.19) 12/03/24 06:25
12/02/24
17:23
Nnt-V-Tkroqluwfba Pept 6790
Physical Exam
Constitutional: No acute distress
Cardiovascular: Rhythm & rate is regular, Systolic murmur absent, Diastolic murmur absent and Pedal edema present (trace edema)
Respiratory: Respiratory effort normal, Lungs clear to auscul., Wheeze Absent, Crackles Absent and Rhonchi Absent
Neuro/Psych: AO x 3
Data Reviewed
-
Date of Service: December 08, 2024
Medical Decision Making: Review of Case with other Provider (Dr Boateng and Dr Coley need to come up with diuretic strategy)
[2024-12-08 12:16] LABS: Glucose - Point of Care 178 mg/dl (70-99)
[2024-12-08] MEDS: NOVOLOG FLEXPEN-MODERATE RESISTANCE 1 UNITS SC ×2 (12:26→17:19)
[2024-12-08] MEDS: ProAmatine 2.5 MG PO (12:29)
--- NOTE | 2024-12-08 12:32 | W.PN.NEPH.PH ---
Today's Communication / Plan
-
Continue to hold diuretics today
Upon discharge suggest 0.5 mg of Bumex every other day
Assessment/Plan
-
84 y/o male past medical history of metastatic renal cell carcinoma, recurrent pleural effusion requiring thoracentesis, CAD, HTN, and DM who presents with hyperkalemia. Patient was hospitalization at [facility] earlier this month.
Impression.
Acute on chronic kidney disease with a baseline creatinine 1.3 presenting creatinine 1.6.
Hyperkalemia
Lower extremity edema.
Pleural effusions.
Plan.
follow BMP
now on SGLT2 inhibitor
Patient currently euvolemic
Suggestion is 1 mg every other day with a weight monitoring
I discussed this with the patient and his at the bedside who appears to be more than capable of monitoring weights outpatient.
If the patient notices increasing weights of about 3 pounds and increasing lower extremity edema he can take dose on off days.
Communicated this with medical team
-
-
Date of Service: December 08, 2024
CC / HPI / ROS
-
Chief Complaint:
Hyperkalemia edema
History of Present Illness:
Acute on chronic kidney disease shortness of breath increasing lower extremity edema and hyperkalemia
SUNITHA/Cr down to 1.4
s/p thoracentesis 1.5lit 6/2
Na stable
Review of Systems:
No chest pain or shortness of breath at rest
Labs
-
Labs:
WBC 6.6 10^3/uL (4.8-10.8) 12/08/24 06:32
RBC 6.08 10^6/uL (4.70-6.10) 12/08/24 06:32
Hgb 13.4 g/dL (13.0-18.0) 12/08/24 06:32
Hct 46.8 % (39.0-52.0) 12/08/24 06:32
Plt Count 268 10^3/uL (130-400) 12/08/24 06:32
Sodium 133 mmol/L (135-145) L 12/08/24 06:32
Potassium 4.6 mmol/L (3.5-5.1) 12/08/24 06:32
Chloride 98 mmol/L (98-107) 12/08/24 06:32
Carbon Dioxide 30 mmol/L (22-30) 12/08/24 06:32
BUN 38 mg/dl (9-20) H 12/08/24 06:32
Creatinine 1.3 mg/dL (0.7-1.3) 12/08/24 06:32
eGFR 54.85 12/08/24 06:32
Glucose 111 mg/dl (70-99) H 12/08/24 06:32
Calcium 8.3 mg/dl (8.4-10.2) L 12/08/24 06:32
Bks-G-Wbepofcfmqn Pept 6790 pg/ml 12/02/24 17:23
Albumin 2.7 g/dl (3.5-5.0) L 12/02/24 17:23
Physical Exam
-
Vital Signs:
Vital Signs
Temp Pulse Resp BP Pulse Ox
97.9 F 76 18 94/60 98
12/08/24 11:02 12/08/24 11:02 12/08/24 11:02 12/08/24 11:02 12/08/24 11:02
Cardiovascular:: Regular rate and rhythm
Respiratory:: Bilateral: Coarse
Lung Excursion:: Normal
Abdomen:: Nontender and Soft
Bowel Sounds:: Normal
Extremity Edema:: None: Bilateral:
--- NOTE | 2024-12-08 14:15 | W.PN.HOSP.TC ---
Addendum entered and electronically signed by Dayanna Boateng MD 12/08/24 19:05:
I saw and evaluated the patient independently. I reviewed the resident�s note and agree with findings and plan as documented by Dr. Pleitez.
GENERAL: well developed, well nourished, male in no apparent distress
HEENT: NC/AT--O2 NC in place
HEART: regular rate and rhythm, +S1, +S2
LUNGS : crackles bilaterally
ABDOM: soft, nontender, nondistended, + bowel sounds
EXT: no cyanosis, clubbing-- 2+ LE edema bilaterally
NEUROLOGIC: grossly intact
Acute on chronic hypoxemic respiratory failure due to Acute heart failure with Recurrent (?) left pleural effusion--does not wear O2 at home--on 2L--wean to off as able- 2 prior thoracocentesis, 1 at last admission ([facility]) and once at rehab
([facility])--Last echo in 2023 was normal with preserved LVEF and no diastolic dysfunction--renal recommending bumex 0.5 mg every other day with PRN weight related extra dosing--Repeat CXR 12/04 showed worsening interstitial and alveolar pulmonary
edema--Continue with beta-yesi, farxiga---Thoracentesis (12/05): 1500mL serosanguineous; transudative effusion consistent with CHF--
Hyperkalemia/Hypervolemic hyponatremia--apprec renal/cards--fluid restriction
hypotension--relative with soft systolic BPs--cont midodrine--cortisol WNL, TFTs not bad enough to cause hypotension--stopping midodrine
CKD stage IIIb--Possibly related to renal cell carcinoma; baseline creatinine near 1.3--Not associated with anemia, acidemia, bone mineral disease--Creatinine 1.4 today, improving, likely within baseline versus--Continue to trend BMP on Bumex as
above
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
contribution his lung mets are contributing to his hypoxemia
fall with skin tear--patient reports that he was not lightheaded, dizzy, weak, short of breath, or having chest pain--he states that he tripped over the elevated marble getting in to the bathroom in his hospital room--consult wound care
CAD s/p CABG/Dyslipidemia--cont asa, statin, toprol, imdur--Hold parameters on metoprolol and isosorbide due to soft pressures
Essential hypertension--cont meds as able based on BPs--hydralazine d/c'd by cards
type 2 NIDDM--A1c 7.0%--Home regimen includes sitagliptin, stopping and starting Farxiga--No known history of microvascular complications
Depression--Remains on home nightly Remeron
DVT proph--SQ heparin
CODE STATUS--DNR
Original Note:
Today's Communication/Plan
-
.
Assessment / Plan
Assessment / Plan
A/P:
# Acute on chronic hypoxemic respiratory failure
# Acute heart failure
# Recurrent (?) left pleural effusion
Currently on 3L by [place]; improvement from admission, was on O2 at [facility], but otherwise does not use O2 at home
Wean O2 as tolerated
Likely new onset heart failure (unclear etiology, previously on chemo) with recurrence of left pleural effusion
- 2 prior thoracocentesis, 1 at last admission ([place]) and once at rehab ([facility])
Last echo in 2023 was normal with preserved LVEF and no diastolic dysfunction
Cardiology: would prefer to avoid midodrine use, would favor every other day dosing or lower once a day standing dose, particularly in setting of initiating Farxiga
Nephrology: suggest 0.5mg Bumex every other day
Repeat CXR 12/04 showed worsening interstitial and alveolar pulmonary edema
Continue with beta-yesi, SGLT2i
Monitor on telemetry for now
Cardiology, nephrology following
Thoracocentesis (12/05): 1500mL serosanguinous; transudative effusion consistent with CHF
# Hyperkalemia
# Hypervolemic hyponatremia
Normalizing values
Cont potassium restricted diet
Continue to monitor
# CKD stage IIIb
Possibly related to renal cell carcinoma; baseline creatinine near 1.3; patient Cr return to baseline
Not associated with anemia, acidemia, bone mineral disease
Continue to trend BMP on Bumex as above
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
Status post Keytruda for immunotherapy, and course of chemotherapy
Was recently stopped on oral medication due to diarrhea and pneumonia
Will need to follow-up with oncologist after DC
Currently appears clinically decompensated
# CAD s/p CABG
# Dyslipidemia
Home regimen includes aspirin, rosuvastatin, metoprolol succinate, isosorbide
No history of cardiomyopathy, last echo with preserved LVEF
Hold parameters on metoprolol and isosorbide due to soft pressures
# Primary hypertension
Home regimen including metoprolol succinate, isosorbide, hydralazine daily
Cardiology discontinued daily hydralazine,
Blood pressure remained stable
Hold parameters on metoprolol and isosorbide due to previously soft pressures: Midodrine on board
# NIDDM
A1c 7.0%
Home regimen includes sitagliptin
No known history of microvascular complications
Likely associated with CAD history
Transition to ISS with Accu-Cheks here
# Depression
Remains on home nightly Remeron
#Near Fall (12/07)
Obtain orthostatic vital signs
Wound care team for injury to forearm
Continue to monitor blood pressures
PT OT as tolerated
Diet: Carb controlled, no added salt
DVT prophylaxis: SQ heparin
CODE STATUS: DNR
DW /daughter at beside
Anticipated Discharge: Within 24 hours
Subjective/Interval History
-
Date of Service: December 08, 2024
Patient seen and examined while resting comfortably in chair, just having finished lunch, is at bedside. Patient states that he is feeling well this morning, with no acute complaints. States his breathing has improved, and he was able to sleep
well last night. Thinks lower extremity edema has improved. No complaints with regards to left forearm wound, right posterior knee wound. Denies CP, dizziness.
Bumex held yesterday. Patient seen by Cardiology and Nephrology.
Objective Data
-
Labs:
Laboratory Results
12/08/24
06:32
WBC 6.6
Hgb 13.4
Hct 46.8
Plt Count 268
Sodium 133 L
Potassium 4.6
Chloride 98
Carbon Dioxide 30
BUN 38 H
Creatinine 1.3
Glucose 111 H
Calcium 8.3 L
Vital Signs:
Vital Signs
Temp Pulse Resp BP Pulse Ox
97.9 F 76 18 94/60 98
12/08/24 11:02 12/08/24 11:02 12/08/24 11:02 12/08/24 11:02 12/08/24 11:02
I&O
12/07/24 12/08/24 12/09/24
06:59 06:59 06:59
Intake Total 1300 / 1300 840 / 840
Output Total 1325 / 1325 1075 / 1075
Balance -25 / -25 -235 / -235
Review of Systems
-
History Source: Patient and Family
Constitutional: Reports No Symptoms
Respiratory: Reports No Symptoms
Cardiac: Reports No Symptoms
Musculoskeletal: Reports Edema (improving)
Neuro: Reports No Symptoms
Physical Exam
-
General: No Apparent Distress and Other (elderly male)
HEENT: Normocephalic, Atraumatic and Moist Mucous Membranes
Respiratory: Clear to Auscultation and Non Labored Respirations; Negative Wheezes, Rales or Rhonchi
Cardiac: Regular Rhythm, S1/S2 and Murmur
Musculoskeletal: No Clubbing, No Cyanosis, Edema, Right Lower Extrem, Edema, Left Lower Extrem and Other (edema improving 1+)
Skin: Warm and Dry
Neuro: Awake, Alert, Oriented and Nonfocal/Grossly Intact
Psych: Calm
Data Reviewed
-
Labs: Labs Reviewed by me and Discussed with Patient
--- NOTE | 2024-12-08 14:48 | CM ---
Patient seen at bedside with physicians and patient on . Patient for possible to SNF [facility] tomorrow on bed hold. CM will continue to follow for discharge planning needs.
Plan; return to SNF tomorrow; pending physician assessment
[2024-12-08 16:49] LABS: Glucose - Point of Care 180 mg/dl (70-99)
[2024-12-08] MEDS: TOPROL XL PO (21:07)
[2024-12-08] MEDS: REMERON 15 MG PO (21:08)
[2024-12-08 21:32] LABS: Urine Albumin 2+ (Neg - Trace); Urine Bilirubin Negative (Negative); Urine Character Clear (Clear); Urine Color Yellow; Urine Glucose 4+ (Negative); Urine Ketone Negative (Negative); Urine Leukocyte Negative (Negative); Urine Nitrite Negative (Negative); Urine Occult Blood 3+ (Negative); Urine Specific Gravity 1.015 (<1.030); Urine Urobilinogen Negative (Neg - 1+)
[2024-12-08 21:41] LABS: Urine Bacteria Few (Negative); Urine Yeast Few (Negative)
[2024-12-08 21:44] LABS: Glucose - Point of Care 174 mg/dl (70-99)
[2024-12-09 03:00] VITALS: BP 139/67
[2024-12-09 06:00] VITALS: BMI 20.1
[2024-12-09 07:00] VITALS: BP 114/90
[2024-12-09 07:43] LABS: Hematocrit 46.2 % (39.0-52.0); Hemoglobin 13.2 g/dL (13.0-18.0); Mean Corp Hgb Conc. 28.6 g/dL (33.0-37.0); Mean Corpuscular Hgb 21.9 pg (27.0-31.0); Mean Corpuscular Volume 76.7 fL (80.0-94.0); Mean Platelet Volume 8.6 fL (7.4-10.4); Platelet Count 239 10^3/uL (130-400); Red Blood Cell Count 6.02 10^6/uL (4.70-6.10); Red Cell Dist. Width 24.3 % (11.5-14.5); White Blood Cell Count 7.1 10^3/uL (4.8-10.8)
[2024-12-09 07:50] LABS: Glucose - Point of Care 121 mg/dl (70-99)
[2024-12-09] MEDS: FARXIGA 10 MG PO (07:54)
[2024-12-09] MEDS: CRESTOR 10 MG PO (07:54)
[2024-12-09] MEDS: IMDUR (EXTENDED RELEASE) 30 MG PO (07:54)
[2024-12-09] MEDS: ASPIR LOW (ENTERIC COATED) 81 MG PO (07:54)
[2024-12-09] MEDS: HEPARIN 5000 UNITS SC (07:54)
[2024-12-09] MEDS: NOVOLOG FLEXPEN-MODERATE RESISTANCE SC (07:58)
[2024-12-09 08:09] LABS: Blood Urea Nitrogen 38 mg/dl (9-20); Calcium 8.4 mg/dl (8.4-10.2); Carbon Dioxide 29 mmol/L (22-30); Chloride 99 mmol/L (98-107); Estimated Creatinine Clearance 41 ml/min; Glucose 126 mg/dl (70-99); Potassium 4.6 mmol/L (3.5-5.1); Sodium 132 mmol/L (135-145); eGFR > 60.00
--- NOTE | 2024-12-09 08:42 | W.PN.CD ---
Today's Communication / Plan
-
start bumex 0.5mg po //
continue remaining med
ok for discharge from cardiovascular perspective. Cardiology will sign off
Impression / Plan
-
HFpEF - acute. Improving, weight down, O2 being weaned (in my discussion with nursing), feels breathing better
-EF 55-60%, mild/mod , mild/mod MR, nl RV, mild TR, PASP 30
-severe, requiring hospitalization, IV diuresis, and close monitoring of labs/tele
-Will proceed with Bumex 0.5mg Mon, Wed, Fri after discussion with Neprhology and Medicine
-would love to avoid midodrine use
-Continue Farxiga
-no aldactone due to hyperkalemia
Pleural effusion - recurrent.
- IRAD consulted. s/p left thora for 1500 cc on 12/05
CAD - s/p CABG 2006.
- stable
- continue medical therapy with aspirin, Imdur, metoprolol succinate, and rosuvastatin.
SUNITHA with Hyperkalemia: CKD3a may be baseline
- Nephrology following; continue to monitor renal function.
HTN - stable
-Continue Toprol XL 12.5mg daily, imdur 30mg daily
-stable off midodrine
HLD - stable on Crestor, continue.
Renal cancer - mets to lung s/p chemo and Keytruda.
- per hospitalist.
- managed by [facility].
Valvular heart disease
-mild/moderate
Subjective:
he denies sob or LH.
Physical Exam
Vital Signs/Labs
Vital Signs
Temp Pulse Resp BP Pulse Ox
97.4 F 80 17 114/90 95
12/09/24 07:00 12/09/24 07:00 12/09/24 07:00 12/09/24 07:00 12/09/24 07:00
12/08/24 12/09/24 12/10/24
06:59 06:59 06:59
Actual Weight 135 lb 3 oz 136 lb
12/09/24 07:13
12/09/24 07:13
PT 15.5 Sec (11.4-14.6) H 12/03/24 06:25
INR 1.20 12/03/24 06:25
Magnesium 1.7 mg/dl (1.6-2.3) 12/06/24 06:33
Free T4 1.49 ng/dl (0.78-2.19) 12/03/24 06:25
12/02/24
17:23
Nvv-O-Yyugotufvxp Pept 6790
Physical Exam
Constitutional: No acute distress
Cardiovascular: Rhythm & rate is regular, Pedal edema is absent and JVD pressure is normal
Respiratory: Respiratory effort normal, Lungs clear to auscul., Wheeze Absent and Crackles Absent
Neuro/Psych: AO x 3
Data Reviewed
-
Date of Service: December 09, 2024
EKG: Other (sinus)
[2024-12-09] MEDS: DUPHALAC/CHRONULAC 20 GRAMS PO (09:08)
--- NOTE | 2024-12-09 10:13 | PTCARENOTE ---
pt had new Bumex order placed. Manual BP was noted to be low in b/l UE, 82/38. pt asymptomatic, sitting in chair. Resident Stef Pleitez notified via tt. Dr. Pleitez noted to hold bumex at this time, no further orders placed.
[2024-12-09 11:00] VITALS: BP 92/47
--- NOTE | 2024-12-09 11:54 | W.PN.NEPH.PH ---
Today's Communication / Plan
-
dc
Assessment/Plan
-
84 y/o male past medical history of metastatic renal cell carcinoma, recurrent pleural effusion requiring thoracentesis, CAD, HTN, and DM who presents with hyperkalemia. Patient was hospitalization at [facility] earlier this month.
Impression.
Acute on chronic kidney disease with a baseline creatinine 1.3 presenting creatinine 1.6.
Hyperkalemia
Lower extremity edema.
Pleural effusions.
Plan.
follow BMP
on low dose imdur/metoprolol
now on SGLT2 inhibitor
Patient currently euvolemic
for bumex MWF low dose
IF BP remains low will need to decrease Cardio meds so he can participate in rehab
-
-
Date of Service: December 09, 2024
CC / HPI / ROS
-
Chief Complaint:
Hyperkalemia edema
History of Present Illness:
Acute on chronic kidney disease shortness of breath increasing lower extremity edema and hyperkalemia
Na low 132 stable
SUNITHA/Cr down to 1.2
s/p thoracentesis 1.5lit 12/05
BP low this morning
Review of Systems:
No chest pain or shortness of breath at rest
no orthostasis
Labs
-
Labs:
WBC 7.1 10^3/uL (4.8-10.8) 12/09/24 07:13
RBC 6.02 10^6/uL (4.70-6.10) 12/09/24 07:13
Hgb 13.2 g/dL (13.0-18.0) 12/09/24 07:13
Hct 46.2 % (39.0-52.0) 12/09/24 07:13
Plt Count 239 10^3/uL (130-400) 12/09/24 07:13
Sodium 132 mmol/L (135-145) L 12/09/24 07:13
Potassium 4.6 mmol/L (3.5-5.1) 12/09/24 07:13
Chloride 99 mmol/L (98-107) 12/09/24 07:13
Carbon Dioxide 29 mmol/L (22-30) 12/09/24 07:13
BUN 38 mg/dl (9-20) H 12/09/24 07:13
Creatinine 1.2 mg/dL (0.7-1.3) 12/09/24 07:13
eGFR > 60.00 12/09/24 07:13
Glucose 126 mg/dl (70-99) H 12/09/24 07:13
Calcium 8.4 mg/dl (8.4-10.2) 12/09/24 07:13
Via-U-Gjzbuxynmtt Pept 6790 pg/ml 12/02/24 17:23
Albumin 2.7 g/dl (3.5-5.0) L 12/02/24 17:23
Physical Exam
-
Vital Signs:
Vital Signs
Temp Pulse Resp BP Pulse Ox
97.2 F 72 17 92/47 95
12/09/24 11:00 12/09/24 11:00 12/09/24 11:00 12/09/24 11:00 12/09/24 11:00
Cardiovascular:: Regular rate and rhythm
Respiratory:: Bilateral: Coarse
Lung Excursion:: Normal
Abdomen:: Nontender and Soft
Bowel Sounds:: Normal
Extremity Edema:: None: Bilateral:
[2024-12-09 12:19] LABS: Glucose - Point of Care 199 mg/dl (70-99)
[2024-12-09] MEDS: NOVOLOG FLEXPEN-MODERATE RESISTANCE 1 UNITS SC ×2 (12:23→17:41)
--- NOTE | 2024-12-09 13:15 | W.PN.HOSP.TC ---
Addendum entered and electronically signed by Dayanna Boateng MD 12/09/24 17:55:
I saw and evaluated the patient independently. I reviewed the resident�s note and agree with findings and plan as documented by Dr. Pleitez.
GENERAL: well developed, well nourished, male in no apparent distress
HEENT: NC/AT--O2 NC in place
HEART: regular rate and rhythm, +S1, +S2
LUNGS : crackles bilaterally
ABDOM: soft, nontender, nondistended, + bowel sounds
EXT: no cyanosis, clubbing-- 2+ LE edema bilaterally
NEUROLOGIC: grossly intact
Acute on chronic hypoxemic respiratory failure due to Acute heart failure with Recurrent (?) left pleural effusion--does not wear O2 at home--on 2L--wean to off as able- 2 prior thoracocentesis, 1 at last admission ([facility]) and once at rehab
([facility])--Last echo in 2023 was normal with preserved LVEF and no diastolic dysfunction--renal recommending bumex 0.5 mg every other day with PRN weight related extra dosing--Repeat CXR 12/04 showed worsening interstitial and alveolar pulmonary
edema--Continue with beta-yesi, farxiga---Thoracentesis (12/05): 1500mL serosanguineous; transudative effusion consistent with CHF--cleared for d/c by cards
Hyperkalemia/Hypervolemic hyponatremia--apprec renal/cards--fluid restriction
hypotension--relative with soft systolic BPs--cont midodrine--cortisol WNL, TFTs not bad enough to cause hypotension--stopping midodrine
CKD stage IIIb--Possibly related to renal cell carcinoma; baseline creatinine near 1.3--Not associated with anemia, acidemia, bone mineral disease--Creatinine 1.4 today, improving, likely within baseline versus--Continue to trend BMP on Bumex as
above
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
contribution his lung mets are contributing to his hypoxemia
fall with skin tear--patient reports that he was not lightheaded, dizzy, weak, short of breath, or having chest pain--he states that he tripped over the elevated marble getting in to the bathroom in his hospital room--consult wound care
CAD s/p CABG/Dyslipidemia--cont asa, statin, toprol, imdur--Hold parameters on metoprolol and isosorbide due to soft pressures
Essential hypertension--cont meds as able based on BPs--hydralazine d/c'd by cards
type 2 NIDDM--A1c 7.0%--Home regimen includes sitagliptin, stopping and starting Farxiga--No known history of microvascular complications
Depression--Remains on home nightly Remeron
new stage 1 to sacrum and silicone border foam applied
DVT proph--SQ heparin
CODE STATUS--DNR
Addendum entered and electronically signed by Stef Pleitez DO, Resident 12/09/24 15:57:
Stage 1 Pressure (Decubitus) Ulcer of the Sacrum
- Wound Care
Original Note:
Today's Communication/Plan
-
.
Assessment / Plan
Assessment / Plan
A/P:
# Acute on chronic hypoxemic respiratory failure
# Acute heart failure
# Recurrent (?) left pleural effusion
Currently on 3L by [place]; improvement from admission, was on O2 at [facility], but otherwise does not use O2 at home
Patient to continue receiving O2 at [facility]. If req don't improve will likely need home O2 assessment there.
Likely new onset heart failure (unclear etiology, previously on chemo) with recurrence of left pleural effusion
- 2 prior thoracocentesis, 1 at last admission ([facility]) and once at rehab ([facility])
Last echo in 2023 was normal with preserved LVEF and no diastolic dysfunction
Cardiology: would prefer to avoid midodrine use, would favor every other day dosing or lower once a day standing dose, particularly in setting of initiating Farxiga
Nephrology: suggest 0.5mg Bumex every other day
Repeat CXR 12/04 showed worsening interstitial and alveolar pulmonary edema
Continue with beta-yesi, SGLT2i
Monitor on telemetry for now
Cardiology, nephrology following
Thoracocentesis (12/05): 1500mL serosanguinous; transudative effusion consistent with CHF
# Hyperkalemia (resolved)
# Hypervolemic hyponatremia
Normalizing values
Cont potassium restricted diet
Continue to monitor
# CKD stage IIIb
Possibly related to renal cell carcinoma; baseline creatinine near 1.3; patient Cr return to baseline
Not associated with anemia, acidemia, bone mineral disease
Continue to trend BMP on Bumex as above
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
Status post Keytruda for immunotherapy, and course of chemotherapy
Was recently stopped on oral medication due to diarrhea and pneumonia
Will need to follow-up with oncologist after DC
Currently appears clinically decompensated
# CAD s/p CABG
# Dyslipidemia
Home regimen includes aspirin, rosuvastatin, metoprolol succinate, isosorbide
No history of cardiomyopathy, last echo with preserved LVEF
Hold parameters on metoprolol and isosorbide due to soft pressures
# Primary hypertension
Home regimen including metoprolol succinate, isosorbide, hydralazine daily
Cardiology discontinued daily hydralazine,
Blood pressure remained stable
Hold parameters on metoprolol and isosorbide due to previously soft pressures
# NIDDM
A1c 7.0%
Home regimen includes sitagliptin
No known history of microvascular complications
Likely associated with CAD history
Transition to ISS with Accu-Cheks here
# Depression
Remains on home nightly Remeron
#Near Fall (12/07)
Obtain orthostatic vital signs
Wound care team for injury to forearm
Continue to monitor blood pressures
PT OT as tolerated
Diet: Carb controlled, no added salt
DVT prophylaxis: SQ heparin
CODE STATUS: DNR
DW /daughter at beside
Anticipated Discharge: Today
Subjective/Interval History
-
Date of Service: December 09, 2024
Yesterday Bumex dose adjusted to MWF dosing, midodrine discontinued, and discharge planning started for today.
Patient seen and examined, resting comfortably in chair, watching television. and daughter at the bedside. Patient has no acute complaints this morning, breathing well, slept well, tolerating PT.
Objective Data
-
Labs:
Laboratory Results
12/09/24
07:13
WBC 7.1
Hgb 13.2
Hct 46.2
Plt Count 239
Sodium 132 L
Potassium 4.6
Chloride 99
Carbon Dioxide 29
BUN 38 H
Creatinine 1.2
Glucose 126 H
Calcium 8.4
Vital Signs:
Vital Signs
Temp Pulse Resp BP Pulse Ox
97.2 F 72 17 92/47 95
12/09/24 11:00 12/09/24 11:00 12/09/24 11:00 12/09/24 11:00 12/09/24 11:00
I&O
12/08/24 12/09/24 12/10/24
06:59 06:59 06:59
Intake Total 840 / 840 1080 / 1080
Output Total 1075 / 1075 800 / 800
Balance -235 / -235 280 / 280
Review of Systems
-
History Source: Patient
All other systems: Reviewed and negative
Constitutional: Reports No Symptoms
Respiratory: Reports No Symptoms
Cardiac: Reports No Symptoms
Musculoskeletal: Reports Edema (imrpoved)
Neuro: Reports No Symptoms
Physical Exam
-
General: No Apparent Distress and Other (elderly male)
HEENT: Normocephalic, Atraumatic and Moist Mucous Membranes
Respiratory: Clear to Auscultation; Negative Wheezes, Rales or Rhonchi
Cardiac: Regular Rhythm and S1/S2
GI: Soft
Musculoskeletal: No Clubbing, No Cyanosis, Edema, Right Lower Extrem, Edema, Left Lower Extrem and Other (edema improving)
Skin: Warm and Dry
Neuro: Awake and Alert
Psych: Calm
Data Reviewed
-
Labs: Labs Reviewed by me, Discussed with Patient and Discussed with Family
--- NOTE | 2024-12-09 13:53 | PN.CDI ---
CDI
- -
CDI:
Physician Documentation Request
Admit Date: 12/02/24 21:40
Dear Doctor Maik,
Patient admitted for heart failure.
12/07 Wound Care Note: 'Patient has new stage 1 to sacrum and silicone border foam applied. Air cushion to chair. Patient is on a Versa Care Air bed and reports fair appetite.'
Physician documentation of the type and location of wounds is required for compliant documentation. Based on the above clinical findings and your assessment, please provide the following in your progress note:
1. Location of the ulcer/wound, including laterality.
2. Type (etiology) of ulcer/wound:
- Diabetic ulcer
- Arterial (ischemic) ulcer
- Traumatic wound
- Venous stasis ulcer
- Pressure (decubitus) ulcer
- Non-healing surgical wound
- Other
- Unable to determine
3. For a non-pressure ulcer, please indicate the depth/severity:
- Limited to the breakdown of skin
- With fat layer exposed
- With necrosis of muscle
- With necrosis of bone
- Other
- Unable to determine
4. If a pressure ulcer, please also include the stage* of the ulcer:
- Stage 1 - Skin intact, non-blanchable redness
- Stage 2 - Partial thickness loss of dermis, includes intact or open blister
- Stage 3 - Full thickness tissue not including bone, tendon or muscle
- Stage 4 - Full thickness tissue loss, including exposed bone, tendon or muscle
- Unstageable - Full thickness loss in which the base of the ulcer is covered by slough (yellow, ruiz, baldwin, green or brown) and/or eschar (ruiz, brown or black) in the wound bed.
- Unable to determine
Use of terms such as suspected, likely, concern for, or probable (associated with a specific diagnosis that is being evaluated, monitored, or treated as if it exists) are acceptable and can be coded in the inpatient setting, when documented at the
time of discharge.
Thank you,
Madisyn Gupta
CDI Specialist
Please use your independent medical judgment in providing your response.
*Source: National Pressure Ulcer Advisory Panel (NPUAP)
--- NOTE | 2024-12-09 14:31 | CM ---
Patient seen at bedside with patient . Imm completed and signed form placed on chart. Patient auth is [id number] for transfer 12/09-12/13 from [facility] and please call [phone] for ur. Please call report to [phone]/fax [phone] and
additional fax to [phone]. CM will continue to follow for discharge planning needs.
Plan; transfer to SNF today
Ambulance forms tubed to unit
[2024-12-09 15:00] VITALS: BP 116/56
--- NOTE | 2024-12-09 16:20 | W.DCSUMMARY ---
Addendum entered and electronically signed by Dayanna Boateng MD 12/09/24 17:59:
Read, reviewed, and agree. See same day progress note for additional details. Time spent coordinating care, DC planning, review of DC plan of care with resident, transition of care, review of records in EMR, med rec, consults, notes, d/w
consultants, nursing, family, and CM = 40 minutes
Original Note:
Discharge Summary
Discharge Data
Date of Admission: 12/02/24
Date of Discharge: 12/09/24
-
Pending Results: No
Hospital Course
Mr. 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
[facility] on 12/02/2024. Notably the patient had recently been hospitalized at [facility] for pneumonia and was undergoing rehabilitation at [facility]. During his stay at [facility], he developed pneumonia and
was started on Levaquin. Additionally, patient became hyperkalemic with a potassium of 6.3 and his oxygen requirements increased to 5 L by nasal cannula. Patient's family reported that he had recently been dealing with increased leg edema and
bilateral pleural effusions. He underwent a thoracocentesis during his last admission, and again while at [facility].
ED COURSE
On presentation, patient appeared mildly tachypneic with bilateral crackles and decreased breath sounds. Potassium was 5.9, sodium was 129 and patient had acute kidney injury with a creatinine of 1.5. He was otherwise afebrile with stable vital
signs. EKG showed normal sinus rhythm with a new right bundle branch block. BNP was 6790 and chest x-ray showed findings concerning for mild right upper lobe, right lower lobe, and left lower lobe pneumonia with small bilateral pleural effusions
and prominence of the central vasculature suggestive of vascular congestion from pulmonary edema. Decision was made to admit the patient for diuresis and to monitor his potassium and sodium levels.
HOSPITAL COURSE
Diuresis was initially started with Bumex 1 mg intravenously daily. Additionally, the patient received a thoracocentesis for evaluation of his pleural effusion which was found to be transudative. Over the course of his admission, the patient's
potassium returned back to normal. Additionally, with fluid restriction, the patient's sodium level returned back to normal. Over the course of admission, the patient's oxygen requirements also improved as his volume overloaded state improved. By
discharge he only required 3 L of oxygen by nasal cannula. As discharge needed, the patient started to exhibit soft pressures. Initially the patient was started on midodrine, however the decision was made that this medication should not become a
part of the patient's long-term regimen. Decision was made to tailor the regimen of Bumex to be given only on Mondays, Wednesdays, and Fridays. Farxiga was also added to the patient's medication list.
DISCHARGE RECOMMENDATIONS
Bumex was started and should be given on a Thursday once daily schedule.
Patient instructed to keep an eye on his weight, and take an extra dose of Bumex if he is starting to show signs of volume overload.
Patient to continue receiving 3 L oxygen by nasal cannula; can be weaned as tolerated. Since he does not have a history of home oxygen, he may require a home oxygen assessment while in rehab.
Farxiga was added to the patient's medication regimen.
Diet includes restriction of potassium to 4 g/day, restriction of sodium to 2 g/day, restriction of carbohydrates, and restriction of fluids to 48 fluid ounces per day.
Follow-up with primary care for additional recommendations and repeat basic metabolic panel.
Continue wound care to the right triceps area, the right posterior knee, the sacrum/coccyx, the right lateral lower leg, and the left lateral lower leg.
Compression stockings to the bilateral lower extremities may be of benefit.
Discharge Plan
-
Patient Disposition: Fci/SNF
Discharge Diagnosis/Procedures: Acute On Chronic Hypoxemic Respiratory Failure Secondary to Heart Failure
Hyperkalemia
Hypervolemic Hyponatremia
Labile Blood Pressures
Traumatic Wound of Left Triceps Limited to Breakdown of Skin
Condition: Fair
Diet: 2 Gram Sodium, Diabetic, Carb Controlled, Restrict fluids to 48 oz and Other diet
Additional Diets: Potassium 4g
Activity: As tolerated
Specialty Instructions: Weigh Daily- Call MD for wt gain/loss 3 lbs overnight/5 lbs in 1 week
Activity Restrictions/Additional Instructions:
Wound Care Instructions
R lateral/posterior leg near knee: clean with saline, adaptic,(alginate for increased drainage), ABD pads and kerlix change daily and prn drainage.
R anterior knee: clean with saline, alginate, silicone foam change q other day and prn drainage.
Isaac wrap thigh high daily until drainage less behind knee.
L lateral leg: clean with saline, adaptic, 2x2 gauze, silicone foam change q other day and prn drainage.
Right and Left Arm Skin Tears- Gently clean with saline. Apply apdatic and cover with ABD, secure with carmen or kerlix. Change every other day and PRN for drainage.
Sacrum- Cover with silicone border foam. Change Q 48 hours and PRN if soiled or for drainage.
Tubigrip knee high daily.
Follow up at wound care center call for an appointment.
Referrals:
Gume Byers MD [Family Provider] - in less than 1 week
Pamela Crawford CRNP [Specified Professional Personl, Cardiology] - 01/11/25 8:40 am
Prescriptions:
New
bumetanide 0.5 mg Tablet
0.5 mg PO MoWeFr Qty: 30 0RF
dapagliflozin propanediol 10 mg Tablet
10 mg PO DAILY Qty: 30 0RF
Continued
acetaminophen 325 mg Tablet
650 mg PO Q4H PRN (Reason: mild pain / fever)
ipratropium-albuterol 0.5 mg-3 mg(2.5 mg base)/3 mL Solution For Nebulization
3 ml INHALATION Q6HPRN PRN (Reason: shortness of breath / wheeze)
isosorbide mononitrate 30 mg Tablet Extended Release 24 Hr
30 mg PO DAILY
diphenoxylate-atropine 2.5-0.025 mg Tablet
1 tab PO DAILY PRN (Reason: diarrhea)
bisacodyl 10 mg Suppository
10 mg IN DAILY PRN (Reason: constipation)
Rx Instructions:
No BM for 3 days and Lactulose ineffective
aspirin 81 mg Tablet
81 mg PO DAILY
pyridoxine (vitamin B6) [Vitamin B-6] 100 mg Tablet
100 mg PO BID
mirtazapine 15 mg Tablet
15 mg PO HS
metoprolol succinate 25 mg Tablet Extended Release 24 Hr
12.5 mg PO HS
rosuvastatin 10 mg Tablet
10 mg PO DAILY
lactulose 10 gram/15 mL Solution
30 ml PO HSPRN PRN (Reason: constipation)
sitagliptin 25 mg Tablet
25 mg PO DAILY
Discontinued
hydralazine 25 mg Tablet
25 mg PO DAILY@1830
Rx Instructions:
Hold for SBP <110 or HR <60
bumetanide [Bumex] 0.5 mg Tablet
0.5 mg PO DAILY
Discharge Orders:
Discharge Patient (As Directed); Ordered 12/09/24
Ordered By: Stef Pleitez
Discharge Date and Time
Print Language: KYRGYZ
[2024-12-09 17:21] LABS: Glucose - Point of Care 153 mg/dl (70-99)
[2024-12-09 18:15] VITALS: BP 107/56
[2024-12-09 19:10] VITALS: BP 110/54
== END 2024-12-09 19:45 | DRG 291 ==
LOC: 3 WEST ACU 21:40
PROVIDERS: Emergency Medicine; Internal Medicine; Nurse Practitioner; Physician Assistant Medical; Radiology Vascular & Interventional Radiology; Specialist; ADMITTING PHYSICIAN Hospitalist; ATTENDING PHYSICIAN Internal Medicine; CONSULT PHYSICIAN Internal Medicine Cardiovascular Disease; EMERGENCY PHYSICIAN Emergency Medicine; FAMILY PHYSICIAN Family Medicine; OTHER PHYSICIAN Internal Medicine Nephrology
PROC: 0W9B3ZZ Drainage of Left Pleural Cavity, Percutaneous Approach (ICD-10-PCS; 2024-12-05)
DX: I13.0 Hypertensive heart and chronic kidney disease with heart failure and stage 1 through stage 4 chronic kidney disease, or unspecified chronic kidney disease (principal); I50.33 Acute on chronic diastolic (congestive) heart failure; J18.9 Pneumonia, unspecified organism; J96.21 Acute and chronic respiratory failure with hypoxia; N17.9 Acute kidney failure, unspecified; C64.9 Malignant neoplasm of unspecified kidney, except renal pelvis; C78.00 Secondary malignant neoplasm of unspecified lung; E87.1 Hypo-osmolality and hyponatremia; R64 Cachexia; J98.11 Atelectasis; J90 Pleural effusion, not elsewhere classified; N18.32 Chronic kidney disease, stage 3b; E11.22 Type 2 diabetes mellitus with diabetic chronic kidney disease; E78.00 Pure hypercholesterolemia, unspecified; I25.10 Atherosclerotic heart disease of native coronary artery without angina pectoris; E87.5 Hyperkalemia; L89.151 Pressure ulcer of sacral region, stage 1; I45.10 Unspecified right bundle-branch block; Y95 Nosocomial condition; F32.A Depression, unspecified; I95.9 Hypotension, unspecified; W01.0XXA Fall on same level from slipping, tripping and stumbling without subsequent striking against object, initial encounter; Y93.01 Activity, walking, marching and hiking; Y92.231 Patient bathroom in hospital as the place of occurrence of the external cause; S41.112A Laceration without foreign body of left upper arm, initial encounter; S41.111A Laceration without foreign body of right upper arm, initial encounter; Z66 Do not resuscitate; Z95.1 Presence of aortocoronary bypass graft; Z92.21 Personal history of antineoplastic chemotherapy; Z91.048 Other nonmedicinal substance allergy status; Z79.82 Long term (current) use of aspirin; Z79.84 Long term (current) use of oral hypoglycemic drugs; Z79.51 Long term (current) use of inhaled steroids; Z87.891 Personal history of nicotine dependence; Z68.20 Body mass index [BMI] 20.0-20.9, adult
CPT/HCPCS: 88305; 32555; 36415; 71045; 71046; 80048; 80053; 81003; 81015; 82533; 82945; 82962; 83036; 83615; 83735; 83880; 83935; 83986; 84132; 84155; 84157; 84300; 84439; 84443; 85025; 85027; 85610; 87015; 87070; 87205; 88112; 88341; 88342; 89051; 93005; 93306; 96374; 97116; 97163; 97167; 97530; 97535; 99291

== ENCOUNTER → 2024-12-19 10:41 | Outpatient (REF) | payer OTHER, SELFPAY ==
[2024-12-19 13:42] LABS: Blood Urea Nitrogen 36 mg/dl (9-20); Calcium 8.4 mg/dl (8.4-10.2); Carbon Dioxide 26 mmol/L (22-30); Chloride 104 mmol/L (98-107); Glucose 138 mg/dl (70-99); Potassium 4.8 mmol/L (3.5-5.1); Sodium 135 mmol/L (135-145); eGFR 50.18
== END ==
LOC: OLABN 10:41
PROVIDERS: ATTENDING PHYSICIAN Student in an Organized Health Care Education/Training Program
DX: I50.9 Heart failure, unspecified (principal)
CPT/HCPCS: 36415; 80048

== ENCOUNTER → 2024-12-27 09:07 | Outpatient (REF) | payer OTHER, SELFPAY ==
[2024-12-27 10:50] LABS: Blood Urea Nitrogen 43 mg/dl (9-20); Calcium 8.5 mg/dl (8.4-10.2); Carbon Dioxide 31 mmol/L (22-30); Chloride 106 mmol/L (98-107); Glucose 225 mg/dl (70-99); Potassium 4.5 mmol/L (3.5-5.1); Sodium 140 mmol/L (135-145); eGFR 50.18
== END ==
LOC: OLABN 09:07
PROVIDERS: ATTENDING PHYSICIAN Student in an Organized Health Care Education/Training Program
DX: I50.9 Heart failure, unspecified (principal)
CPT/HCPCS: 36415; 80048

== ENCOUNTER 2024-12-30 12:55 | Inpatient (IN) | payer OTHER, SELFPAY ==
[2024-12-30] VITALS (10 sets, daily range): BP systolic 106–129; BP diastolic 51–72; BMI 22.1
--- NOTE | 2024-12-30 09:30 | ED.GENMED ---
History of Present Illness
General
Chief Complaint: Breathing Problem
Time Seen by Provider: 12/30/24 09:08
History of Present Illness
History of Present Illness:
Patient is an 84-year-old male, DNR/DNI, with past medical history of metastatic lung cancer, chronic hypoxemic respiratory failure on 4 L nasal cannula, CAD, CKD, diabetes, hypotension, hyperlipidemia, and history of pneumonia, who currently
resides at [facility], here today for evaluation of a change in mental status. Per family the patient has had a change in mental status over the past 1 to 2 days. He appears more somnolent and confused not able to appropriately answer
questions or follow commands. This is a new change in personality and behavior for the patient as patient was previously able to converse without difficulty.
I did speak with the nursing facility, nurse, [facility]. They report the change in behavior was since this morning. They felt the patient was in respiratory distress with a change in mental status and confused. She states he is
typically alert and oriented x 3 with very mild confusion. Patient's glucose was noted to be 337 this morning. They also noted crackles in his lungs and diminished lung sounds at the bases. They ultimately contacted EMS and patient was brought to
the emergency department for evaluation.
Past History
Past History
ED Past Medical History: CAD, Cancer, Hypercholesterolemia and NIDDM
ED Past Surgical History: Cardiac
Social History
Tobacco: Non-smoker
Alcohol: None
Drug: None
Personal:
Living: other (Rehab at [facility])
Employment: Retired
Family History
Family History: Other
Review of Systems
Review of Systems
All Other Systems: ROS reviewed and negative except as documented in HPI and ROS
Phy Exam
Physical Exam
Physical Exam:
GENERAL: Not alert or oriented
EYE: pupils equal and reactive
NECK: Supple
ENT: o/p clr, mmm.
CARDIAC: Regular rate and rhythm. Mild symmetric lower extremity edema noted.
LUNGS: Diminished breath sounds throughout, no acute respiratory distress, scattered crackles
ABDOMEN: Soft, without wincing with palpation, no r/g
NEUROLOGICAL: Not oriented to person, place, or time, not able to follow commands, alert to verbal stimuli
SKIN: Warm and dry, skin intact.
MUSCULOSKELETAL: Well perfused.
Scores
Heart Failure Risk
Heart Failure Risk Score: Yes
History of Stroke or TIA: No
History of intubation for respiratory distress: No
Heart rate on ED arrival >/= 110: No
SaO2 <90% on arrival on room air: No
HR >/=110 during 3min walk test (or too ill to perform test): No
ECG has acute ischemic changes: No
Urea >/=12mmol/L (BUN 33.6mg/dL): Yes
Serum CO2>/=35mmol/L: No
Troponin I or T elevated to MA Level (0.4mg/dL): No
NT-proBNP >/=5,000ng/L (5,000pg/ml): Yes
HF Risk Score: 2
Admission Status: MEDIUM RISK 9.2% Consider observation or discharge to home with homecare & f/u visit to PCP/Balance Sheet Analyst, or SNF for treatment
Course
Orders/Labs/Results
Orders:
Orders
12/30/24 09:38
CT Head W/o Iv Contrast Urgent
Comment:
Reason For Exam: confusion ams
Straight cath- Treatment ONCE
12/30/24 09:40
CR Chest - 2 Views Urgent
Comment:
Reason For Exam: hx of pna, reported trouble breathing
12/30/24 09:43
Complete Blood Count/With Diff Urgent
Comprehensive Metabolic Panel Urgent
NT-proBNP Urgent
Troponin I Urgent
Urinalysis Reflex To Culture Urgent
Date Specimen was Collected: 12/30/24
Time Specimen was Collected: 09:41
Urine Microscopic Reflex Cult Urgent
12/30/24 10:43
Bumetanide [Bumex] 0.5 mg IV NOW STA
Abnormal Lab Results
12/30/24
09:43
Hct 52.2 H %
(39.0-52.0)
MCH 21.5 L pg
(27.0-31.0)
MCHC 24.9 L g/dL
(33.0-37.0)
RDW 24.2 H %
(11.5-14.5)
Absolute Lymphs (auto) 0.5 L 10^3/uL
(1.2-3.4)
Absolute Monos (auto) 0.8 H 10^3/uL
(0.1-0.6)
Neutrophils % 77.3 H %
(42.2-75.2)
Lymphocytes % 8.3 L %
(20.5-51.1)
Monocytes % 13.7 H %
(1.7-9.3)
Potassium 5.4 H mmol/L
(3.5-5.1)
BUN 52 H mg/dl
(9-20)
Creatinine 1.7 H mg/dL
(0.7-1.3)
Glucose 315 H mg/dl
(70-99)
AST 132 H U/L
(17-59)
ALT 89 H U/L
(0-50)
Alkaline Phosphatase 390 H U/L
(38-126)
Troponin I 0.208 H* ng/ml
Albumin 3.0 L g/dl
(3.5-5.0)
Urine Bacteria (Reflex) Few A
(Negative)
Urine Albumin (Reflex) 1+ A
(Neg - Trace)
12/30/24 09:43
12/30/24 09:43
Vital Signs
Initial and Last Documented VS:
Initial Vital Signs
Temp Pulse Resp BP Pulse Ox
98.9 F 88 20 106/51 99
12/30/24 08:50 12/30/24 08:50 12/30/24 08:50 12/30/24 08:50 12/30/24 08:50
Last Documented Vital Signs
Temp Pulse Resp BP Pulse Ox
98.9 F 88 18 124/72 98
12/30/24 08:50 12/30/24 11:30 12/30/24 12:00 12/30/24 11:00 12/30/24 12:00
MDM/Problems Addressed
Differential Diagnosis Includes:
Patient is an 84-year-old male, DNR/DNI, with past medical history of metastatic lung cancer, chronic hypoxemic respiratory failure on 4 L nasal cannula, CAD, CKD, diabetes, hypotension, hyperlipidemia, and history of pneumonia, who currently
resides at [facility], here today for evaluation of a change in mental status. We will begin with a workup. Will closely monitor and re-evaluate.
12/30/2024 1216: Screening labs reveal potassium 5.4. BUN 52/creatinine 1.7 which is grossly consistent with the patient's baseline. Glucose 315. There is mild transaminitis. Alkaline phosphatase 390. Troponin elevated at 0.208. BNP greater
than 27,000. Urinalysis grossly negative for infection. Head CT negative. Chest x-ray reveals pulmonary edema with possible airspace consolidation and/or small effusion. Family made aware. Discussed treatment options. Shared decision making
was used. We will provide IV diuresis for the patient with Bumex as this is likely contributing to his symptoms. We will admit to medicine for further testing/evaluation. Case discussed with hospitalist attending. All questions answered.
*Pulse Oximetry
SaO2: 99
Nasal Cannula flow liters per minute: 4
Patient hypoxic: no
*Critical Care Note
Total Time (30-74mins, 75-104mins- exclusive of procedures): Not Applicable
ED Attending Note
-
Portions of this chart may have been created with voice recognition software.� Occasional wrong word or��sound alike� substitutions may have occurred due to the inherent limitations of voice recognition software.
Discharge Plan
Departure
Patient Disposition: Admit
Date of Disposition: 12/30/24
Time of Disposition: 12:18
Admit to: Telemetry
Admit to doctor: Almas Kline
Presentation/result/management discussed w/ accepting MD/DO: Hospitalist
Patient with high blood pressure during this ER visit?: No
Condition: Serious
Covid-19: Not Applicable
Discharge Problem:
Acute alteration in mental status, Congestive heart failure (CHF)
Prescriptions:
No Action
acetaminophen 325 mg Tablet
650 mg PO Q4HPRN MDD 3000 mg PRN (Reason: mild pain / fever>100.4)
ipratropium-albuterol 0.5 mg-3 mg(2.5 mg base)/3 mL Solution For Nebulization
3 ml INHALATION R HS
isosorbide mononitrate 30 mg Tablet Extended Release 24 Hr
30 mg PO DAILY
diphenoxylate-atropine 2.5-0.025 mg Tablet
1 tab PO DAILYPRN PRN (Reason: diarrhea)
bisacodyl 10 mg Suppository
10 mg GA [id number] PRN (Reason: q 3 days if no BM and MOM/lactulose ineffective)
pyridoxine (vitamin B6) [Vitamin B-6] 100 mg Tablet
100 mg PO Q12H
metoprolol succinate 25 mg Tablet Extended Release 24 Hr
12.5 mg PO HS
rosuvastatin 10 mg Tablet
10 mg PO DAILY
lactulose 10 gram/15 mL Solution
30 ml PO HSPRN PRN (Reason: constipation)
dapagliflozin propanediol 10 mg Tablet
10 mg PO DAILY Qty: 30 0RF
ipratropium-albuterol 0.5 mg-3 mg(2.5 mg base)/3 mL Solution For Nebulization
3 ml INHALATION R Q6HPRN PRN (Reason: wheezing/dyspnea)
aspirin 81 mg Tablet,Delayed Release (Dr/Ec)
81 mg PO DAILY
[place] Saline Gel Swab
1 ea INTRANASAL Q2HPRN PRN (Reason: dry nare)
Januvia 25 mg Tablet
25 mg PO DAILY
bumetanide 0.5 mg tablet
0.5 mg PO DAILY
mirtazapine 15 mg Tablet
15 mg PO HS
Referrals:
Delmer Velazquez DO [Family Provider, Family Practice]
Interventions
Interventions:
*Risk Screen - Suicide Last Done: 12/30/24 08:50
*General Assessment Last Done: 12/30/24 08:50
*Neglect/Abuse Screening Last Done: 12/30/24 08:50
*ED- Fall Risk Assessment Last Done: 12/30/24 08:50
ED- Cardiac Assessment Last Done: 12/30/24 08:50
ED- Pulmonary Assessment Last Done: 12/30/24 08:50
Discharge Date and Time
Print Language: FIJIAN
[2024-12-30 10:04] LABS: Urine Albumin 1+ (Neg - Trace); Urine Bilirubin Negative (Negative); Urine Character Clear (Clear); Urine Color Yellow; Urine Glucose Negative (Negative); Urine Ketone Negative (Negative); Urine Leukocyte Negative (Negative); Urine Nitrite Negative (Negative); Urine Occult Blood Negative (Negative); Urine Specific Gravity 1.015 (<1.030); Urine Urobilinogen 1+ (Neg - 1+); Urine pH 6.5 (5.0-9.0)
[2024-12-30 10:05] LABS: % Eosinophils 0.2 % (0-6); % Immature Granulocytes 0.5 % (0-0.5); % Lymphocytes 8.3 % (20.5-51.1); % Monocytes 13.7 % (1.7-9.3); % Neutrophils 77.3 % (42.2-75.2); Absolute Lymphocytes 0.5 10^3/uL (1.2-3.4); Absolute Monocytes 0.8 10^3/uL (0.1-0.6); Absolute Neutrophils 4.3 10^3/uL (1.4-6.5); Hematocrit 52.2 % (39.0-52.0); Mean Corp Hgb Conc. 24.9 g/dL (33.0-37.0); Mean Corpuscular Hgb 21.5 pg (27.0-31.0); Mean Corpuscular Volume 86.3 fL (80.0-94.0); Mean Platelet Volume 9.3 fL (7.4-10.4); Nucleated Red Blood Cells % 1.8 % (-); Platelet Count 292 10^3/uL (130-400); Red Blood Cell Count 6.05 10^6/uL (4.70-6.10); Red Cell Dist. Width 24.2 % (11.5-14.5); White Blood Cell Count 5.5 10^3/uL (4.8-10.8)
[2024-12-30 10:22] LABS: ALT (SGPT) 89 U/L (0-50); AST (SGOT) 132 U/L (17-59); Alkaline Phosphatase 390 U/L (38-126); Blood Urea Nitrogen 52 mg/dl (9-20); Calcium 8.6 mg/dl (8.4-10.2); Carbon Dioxide 28 mmol/L (22-30); Chloride 106 mmol/L (98-107); Estimated Creatinine Clearance 31 ml/min; Glucose 315 mg/dl (70-99); Potassium 5.4 mmol/L (3.5-5.1); Sodium 142 mmol/L (135-145); Total Bilirubin 0.7 mg/dl (0.2-1.3); Total Protein 6.5 g/dl (6.3-8.2); eGFR 39.75
[2024-12-30 10:27] LABS: NT-proBNP > 27000 pg/ml; Troponin I 0.208 ng/ml
[2024-12-30 10:41] LABS: Urine Amorphous Seen
[2024-12-30 10:43] LABS: Urine Bacteria Few (Negative); Urine Red Blood Cell 0-2 /HPF (0-2); Urine White Cell 0-2 /HPF (0-5)
[2024-12-30] MEDS: BUMEX 0.5 MG IV ×2 (10:49→15:01)
--- NOTE | 2024-12-30 12:14 | HPS.HSE ---
Family Physician
-
Family Physician: Delmer Velazquez DO
Chief Complaint
-
Change in Mental Status
History of Present Illness
Patient is an 84 y/o male past medical history of metastatic renal cell carcinoma, CKD, CAD, CHF, HTN, and DM who presents with change in mental status. Patient resides at a local [facility]. Staff at the facility noted patient was more
somnolent and confused today and sent him to the emergency department for evaluation. Family is now at bedside and confirms patient is not at baseline. Family notes patient seemed to be in his usual state of health yesterday. Family notes patient
has been losing weight at the facility. Patient is on oxygen at 4L at baseline. There are no reports of increased lower extremity edema, and family reports his edema seems better. There are no reports of complaint of chest pain. Patient denies
chest pain or shortness of breath at present time.
Medical History
Past Medical History
Past Medical History: Reports Other
Additional Past Medical History:
Chronic Hypoxic Respiratory Failure
Recurrent Pleural Effusion
Metastatic Renal Cell Carcinoma with Lung Mets s/p Keytruda and Chemotherapy
CKD Stage IIIB
Coronary Artery Disease s/p CABG
Chronic HFpEF
Essential Hypertension
Hyperlipidemia
Diabetes Mellitus, Type II
Depression
Past Surgical History: Reports Other
Additional Past Surgical History:
Coronary Artery Bypass Graft
Thoracentesis
Discectomy
Social History
Tobacco: Non-smoker
Alcohol: Occasional (None recently)
Family History
Family History: Not pertinent
Allergies / Home Medications
Allergies reflects when Allergies were last updated in [employer].
Home Medications with original date entered in [employer]
Allergy/Medication List:
Allergies
Allergy/AdvReac Type Severity Reaction Status Date / Time
adhesive tape Allergy Rash Verified 12/30/24 08:57
Home Medications
acetaminophen 325 mg tablet 650 mg PO Q4HPRN PRN mild pain / fever>100.4 12/02/24
bisacodyl 10 mg rectal suppository 10 mg SD [id number] PRN q 3 days if no BM and MOM/lactulose ineffective 12/02/24
diphenoxylate-atropine 2.5 mg-0.025 mg tablet 1 tab PO DAILYPRN PRN diarrhea 12/02/24
ipratropium 0.5 mg-albuterol 3 mg (2.5 mg base)/3 mL nebulization soln 3 ml inhalation R HS 12/02/24
isosorbide mononitrate 30 mg tablet,extended release 24 hr 30 mg PO DAILY Blood Pressure 12/02/24
lactulose 10 gram/15 mL oral solution 30 ml PO HSPRN PRN constipation 12/02/24
metoprolol succinate 25 mg tablet,extended release 24 hr 12.5 mg PO HS Blood Pressure 12/02/24
pyridoxine (vitamin B6) 100 mg tablet (Vitamin B-6) 100 mg PO Q12H Supplement 12/02/24
rosuvastatin 10 mg tablet 10 mg PO DAILY High Cholesterol 12/02/24
dapagliflozin propanediol 10 mg tablet 10 mg PO DAILY #30 tabs 12/09/24
aspirin 81 mg tablet,delayed release 81 mg PO DAILY 12/30/24
bumetanide 0.5 mg tablet 0.5 mg PO DAILY 12/30/24
ipratropium 0.5 mg-albuterol 3 mg (2.5 mg base)/3 mL nebulization soln 3 ml inhalation R Q6HPRN PRN wheezing/dyspnea 12/30/24
mirtazapine 15 mg tablet 15 mg PO HS 12/30/24
sitagliptin phosphate 25 mg tablet (Januvia) 25 mg PO DAILY 12/30/24
sodium chloride-aloe vera nasal swab 1 ea intranasal Q2HPRN PRN dry nare 12/30/24
Review of Systems
-
Unable to obtain full review of systems at this time due to: Acuity
Physical Exam
Vital Signs
Vital Signs
Temp Pulse Resp BP Pulse Ox
98.9 F 88 27 124/72 97
12/30/24 08:50 12/30/24 11:30 12/30/24 11:30 12/30/24 11:00 12/30/24 11:30
Physical Exam
General: Appears Chronically Ill and Cachectic
HEENT: Oxygen (Nasal Cannula) and Other (Lips are dry with poor dentition)
Respiratory: Rales, Non Labored Respirations and Decreased Breath Sounds (Left Base)
Cardiac: S1/S2, Regular Rhythm and Murmur; No Tachycardia
GI: Soft and Non Tender
Rectal: Deferred by Provider
Musculoskeletal: No Clubbing, No Cyanosis and Other (+1 pitting edema bilateral lower extremities)
Skin: Warm and Dry
Neuro: Other (Opens eyes to name, responds appropriately to Yes/No questions)
Psych: Calm
Laboratory Results
-
12/30/24 09:43
12/30/24 09:43
Laboratory Results
Total Bilirubin 0.7 mg/dl (0.2-1.3) 12/30/24 09:43
AST 132 U/L (17-59) H 12/30/24 09:43
ALT 89 U/L (0-50) H 12/30/24 09:43
Alkaline Phosphatase 390 U/L (38-126) H 12/30/24 09:43
Troponin I 0.208 ng/ml H* 12/30/24 09:43
Chest X-Ray:
Low lung volumes with dense left basilar opacity which may represent airspace consolidation and/or small effusion. Fairly extensive bilateral perihilar opacities. Findings suspicious for pulmonary edema.
There are also multiple small nodular opacities within the peripheral left lung, potentially worrisome for underlying metastatic disease.
Head CT:
No acute intracranial abnormality.
Data Reviewed
-
Diagnostic Radiology: Report Reviewed by me
CT Scan: Report Reviewed by me
Lab Data: Labs Reviewed by me
Impression/Plan
-
Acute on Chronic HFpEF
-Consult Cardiology
-Continue Bumex 1mg IV Daily
-Continue Farxiga
-Monitor Is&Os and Daily Weights
Elevated Troponin, likely non-ischemic myocardial injury
-Continue to trend troponin
Hyperkalemia, mild
-Potassium likely will improve with diuretics
-Recheck potassium later this afternoon
Elevated Transaminases, likely related to hepatic congestion in setting of heart failure
-Continue to trend
CKD Stage III
-Creatinine slightly higher than baseline
-Monitor creatinine closely while on diuretics
Diabetes Mellitus, Type II - Sugars are uncontrolled
-HgbA1c 7.0 in November 2024
-Continue Farxiga and Januvia
-Monitor sugars and continue coverage insulin
Chronic Hypoxic Respiratory Failure
-Patient maintained on 4L nasal canula at baseline
Coronary Artery Disease s/p CABG
-Continue aspirin, isosorbide mononitrate, metoprolol and rosuvastatin
Depression
-Continue mirtazapine
Hx Metastatic Renal Cell Carcinoma with Lung Mets s/p Keytruda and Chemotherapy
Hx Recurrent Left Pleural Effusion
DVT proph: SC Heparin
Code Status: DNR/DNI
--- NOTE | 2024-12-30 13:24 | W.PN.UPDATE ---
Update Note
Progress Note Update
This is an addendum to H&P written by Laurie Swan on 12/30/2024. �Patient seen and examined independently with PA.
84-year-old male past medical history of metastatic kidney cancer metastases to the lungs on 4L oxygen previously on Keytruda and chemotherapy, CAD status post CABG,CKD, hypertension, depression, hypercholesteremia, diabetes, presenting for change
in mental status and respiratory distress. �Blood sugar 337 this morning.
He was recently admitted last month for acute CHF exacerbation and pleural effusions status post left-sided thoracentesis.
Patient hypoxemia requiring 4 L oxygen.
Labs show potassium 5.4. �Troponin 0.2. �Cardiac BNP greater than 27,000. �Blood sugar of 315. �Creatinine of 1.7 from 1.4 previously. �Patient with transaminitis.
Chest x-ray shows low lung volumes with dense left basilar opacity which may represent airspace consolidation/small effusion. �Fairly extensive bilateral perihilar opacities suspicious for pulmonary edema. �Also multiple small nodular opacities
within the peripheral left lung worrisome for underlying metastatic disease.
Patient with acute CHF exacerbation with mild cardiorenal SUNITHA. �Also nonischemic myocardial injury. �1 mg Bumex daily. �Cardiology consulted. �Monitor renal function. �Transaminitis likely secondary to hepatic venous congestion. May need
thoracentesis later.
Add insulin sliding scale to oral diabetic medications.�
--- NOTE | 2024-12-30 13:29 | CM ---
CM reviewed chart and met with pt's and son bedside in ED, pt was sleeping. IA completed.
Prior to admission pt was at [facility] for STR.
Ambulating with walker and assistance per . Requires assistance for ADLs and personal care.
Prior to [facility], pt lived with in [place], [place] community, has walker, shower chair and wheelchair.
hx VN Jessi
PCP: Delmer Velazquez at [place], Gregor Diana at home
Pharmacy: [facility] [address] [place]
Discharge plan: Anticipate back to [facility] for STR
--- NOTE | 2024-12-30 13:35 | CON.CAR ---
Addendum entered and electronically signed by Paulo Luna MD 12/30/24 16:43:
84M with chronic hypoxic respiratory failure, chronic HFpEF, recurrent pleural effusions, CAD (CABG 2006), PAD (right ICA), hypertension, dyslipidemia, NIDDM, CKD3b, and metastatic renal cell carcinoma with metastasis to the lungs status post
chemotherapy and Keytruda presented to the emergency department with a chief complaint and change in mental status. We are consulted for acute on chronic HFPEF. He responds to questions minimally at bedside. Exam with RRR, II/ systolic murmur at
RUSB, 1+ LE edema. Cr 1.7. Tele: SR.
Acute on chronic HFPEF. He is above prior dry weight. Continue IV bumex with close monitoring of labs/tele.
CKD3b. Trend with diuresis.
Original Note:
Consultation
Consultation Request
Date/Time Consultation Requested: 12/30/2024 13:00
Date/Time Consultation Performed: 12/30/2024 13:30
Requesting Provider: Laurie Garcia PA-C
Performing Provider: JESSE Mckeon for Dr. Luna
Reason for Consultation: Acute on chronic HF
Medical History
-
Chief Complaint: Change in mental status
History of Present Illness:
Jose C Butts is an 84-year-old male with chronic hypoxic respiratory failure, HFpEF, recurrent pleural effusions, CAD (CABG 2006), PAD (right ICA), hypertension, dyslipidemia, NIDDM, CKD3b, and metastatic renal cell carcinoma with metastasis to the
lungs status post chemotherapy and Keytruda presented to the emergency department with a chief complaint and change in mental status. Per his family, they noticed the mental status decline since last evening. He appeared more somnolent and
confused and was unable to answer questions correctly or follow commands. He was admitted with acute on chronic HFpEF. Cardiology was asked to consult for heart failure management. He is currently somnolent and is unable to answer questions. He
cannot contribute to this HPI.
Past Medical History
Past Medical History: CAD (CABG), Cancer (Metastatic renal cell carcinoma with lung mets [Keytruda]), CHF, HTN, Hypercholesterolemia, NIDDM, Renal Failure (CKD 3b) and Other (PAD [ICA, right])
Past Surgical History: Cardiac (CABG 2006)
Social History
Tobacco: Former Smoker
Alcohol: None
Drug: None
Personal:
Living: Retirement ([facility] [rehab])
Employment: Retired
Family History
Family History: Reviewed & Not Pertinent
Allergies / Home Medications
Allergy/AdvReac Type Severity Reaction Status Date / Time
adhesive tape Allergy Rash Verified 12/30/24 08:57
�Medication �Instructions �Recorded �Confirmed �Type
acetaminophen 325 mg tablet 650 mg PO Q4HPRN PRN mild pain / 12/02/24 12/30/24 History
fever>100.4
bisacodyl 10 mg rectal suppository 10 mg NE Q30TIUM PRN q 3 days if 12/02/24 12/30/24 History
no BM and MOM/lactulose ineffective
diphenoxylate-atropine 2.5 1 tab PO DAILYPRN PRN diarrhea 12/02/24 12/30/24 History
mg-0.025 mg tablet
ipratropium 0.5 mg-albuterol 3 mg 3 ml inhalation R HS 12/02/24 12/30/24 History
(2.5 mg base)/3 mL nebulization
soln
isosorbide mononitrate 30 mg 30 mg PO DAILY Blood Pressure 12/02/24 12/30/24 History
tablet,extended release 24 hr
lactulose 10 gram/15 mL oral 30 ml PO HSPRN PRN constipation 12/02/24 12/30/24 History
solution
metoprolol succinate 25 mg 12.5 mg PO HS Blood Pressure 12/02/24 12/30/24 History
tablet,extended release 24 hr
pyridoxine (vitamin B6) 100 mg 100 mg PO Q12H Supplement 12/02/24 12/30/24 History
tablet (Vitamin B-6)
rosuvastatin 10 mg tablet 10 mg PO DAILY High Cholesterol 12/02/24 12/30/24 History
dapagliflozin propanediol 10 mg 10 mg PO DAILY #30 tabs 12/09/24 12/30/24 Rx
tablet
aspirin 81 mg tablet,delayed 81 mg PO DAILY 12/30/24 12/30/24 History
release
bumetanide 0.5 mg tablet 0.5 mg PO DAILY 12/30/24 12/30/24 History
ipratropium 0.5 mg-albuterol 3 mg 3 ml inhalation R Q6HPRN PRN 12/30/24 12/30/24 History
(2.5 mg base)/3 mL nebulization wheezing/dyspnea
soln
mirtazapine 15 mg tablet 15 mg PO HS 12/30/24 12/30/24 History
sitagliptin phosphate 25 mg tablet 25 mg PO DAILY 12/30/24 12/30/24 History
(Januvia)
sodium chloride-aloe vera nasal 1 ea intranasal Q2HPRN PRN dry nare 12/30/24 12/30/24 History
swab
Review of Systems
-
Unable to obtain full review of systems at this time due to: Patient Non Verbal
Physical Exam
Vital Signs
Temp Pulse Resp BP Pulse Ox
98.9 F 86 24 114/57 100
12/30/24 08:50 12/30/24 13:02 12/30/24 13:02 12/30/24 13:02 12/30/24 13:02
Lab Results
12/30/24 09:43
Troponin I 0.208 ng/ml H* 12/30/24 09:43
Zwk-M-Dsipeeezboh Pept > 58587 pg/ml 12/30/24 09:43
Physical Exam
General: No Apparent Distress and Comfortable
HEENT: Normocephalic and Anicteric
Respiratory: Crackles
Cardiac: S1/S2, Regular Rhythm and Murmur (II/)
Breast: Deferred by me
GI: Soft and Non Distended
Rectal: Deferred by Provider
Genito-urinary: No Costovertebral Tender
Musculoskeletal: No Clubbing and No Cyanosis
Skin: Warm and Dry
Neuro: Other (Somnolent)
Hematologic/Lymphatic: No Lymphadenopathy
Psych: Calm
Impression / Plan
-
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
chemotherapy and Keytruda presented to the emergency department with a chief complaint and change in mental status.
Outpatient sinker winder: Dr. Naranjo
HFpEF, acute on chronic
- CXR with pulmonary edema, renal function worse from baseline, and a proBNP >27,000
- Diuresis with bumetanide 0.5 mg IV, daily dosing for now, this requires intensive monitoring
- Continue Farxiga
- Heart failure education
- Trend daily weight, I/O, BMP with diuresis
- He had an echocardiogram earlier this month, it does not need to be repeated
Change in mental status
- UA with few bacteria, otherwise normal
CKD stage III
- Creatinine above baseline, follow with diuresis
- With metastatic renal carcinoma
Abnormal troponin, unknown, type II AK in the setting of heart failure versus nonischemic myocardial injury in the setting of heart failure and CKD
- No chest pain but he presented with confusion
- Initial troponin 0.208, trend to peak
- EKG ordered
CAD
- Stable without chest pain
- Status post CABG 2006, continue medical management
Transaminitis, in the setting of congestion
Chronic hypoxic respiratory failure, on 4 L nasal cannula at baseline
Metastatic renal carcinoma, metastasis to lung, managed by [facility]
Type 2 diabetes mellitus, with hyperglycemia, per primary service
Mitral regurgitation, mild to moderate
Aortic stenosis, mild to moderate, peak/mean gradients 14/8 mmHg, FREYA 1.3 cm.
Carotid artery stenosis, moderate right
CODE STATUS: DNR/DNI
Data Reviewed
-
Radiology: Report Reviewed by me
Medical Tests (Nuc Med, Echo etc): Report Reviewed by me
Labs: Labs Reviewed by me
Old Records: Reviewed
[2024-12-30 14:27] LABS: Glucose - Point of Care 259 mg/dl (70-99)
[2024-12-30 17:10] LABS: Potassium 5.1 mmol/L (3.5-5.1)
[2024-12-30 17:26] LABS: Glucose - Point of Care 247 mg/dl (70-99)
[2024-12-30 17:29] LABS: Troponin I 0.238 ng/ml
[2024-12-30] MEDS: NOVOLOG FLEXPEN-LOW RESISTANCE SC (17:56)
[2024-12-30] MEDS: DUONEB 3 ML INH (19:10)
[2024-12-30] MEDS: HEPARIN 5000 UNITS SC (20:33)
[2024-12-30 22:17] LABS: Glucose - Point of Care 204 mg/dl (70-99)
[2024-12-30 23:33] LABS: Troponin I 0.256 ng/ml
[2024-12-31 03:23] VITALS: BP 107/51
[2024-12-31 06:39] VITALS: BMI 22.3
[2024-12-31 07:00] VITALS: BP 117/55
[2024-12-31 07:16] LABS: Hematocrit 49.4 % (39.0-52.0); Hemoglobin 12.4 g/dL (13.0-18.0); Mean Corp Hgb Conc. 25.1 g/dL (33.0-37.0); Mean Corpuscular Hgb 21.3 pg (27.0-31.0); Mean Platelet Volume 9.3 fL (7.4-10.4); Platelet Count 302 10^3/uL (130-400); Red Blood Cell Count 5.81 10^6/uL (4.70-6.10); Red Cell Dist. Width 24.1 % (11.5-14.5); White Blood Cell Count 5.5 10^3/uL (4.8-10.8)
[2024-12-31 07:35] LABS: ALT (SGPT) 64 U/L (0-50); AST (SGOT) 56 U/L (17-59); Albumin 2.8 g/dl (3.5-5.0); Alkaline Phosphatase 280 U/L (38-126); Blood Urea Nitrogen 62 mg/dl (9-20); Calcium 8.4 mg/dl (8.4-10.2); Carbon Dioxide 27 mmol/L (22-30); Chloride 109 mmol/L (98-107); Direct Bilirubin 0.5 mg/dl (0.0-0.4); Estimated Creatinine Clearance 33 ml/min; Glucose 201 mg/dl (70-99); Magnesium 2.4 mg/dl (1.6-2.3); Potassium 5.4 mmol/L (3.5-5.1); Sodium 145 mmol/L (135-145); Total Bilirubin 0.6 mg/dl (0.2-1.3); Total Protein 6.3 g/dl (6.3-8.2); eGFR 42.75
[2024-12-31 07:52] LABS: Troponin I 0.207 ng/ml
[2024-12-31 08:37] LABS: Glucose - Point of Care 191 mg/dl (70-99)
--- NOTE | 2024-12-31 09:25 | PTCARENOTE ---
patient dyspneic with ?agonal breathing. 4L NC maintained. limited in conversing, ?weak, dyspnea. able to say name in soft/whisper voice, appears difficult. lethargic, but arousable to verbal stimuli. ?confused vanessa time and place. family speaking
with each other and deciding if they want comfort/hospice care for patient, will continue to monitor.
[2024-12-31] MEDS: NOVOLOG FLEXPEN-LOW RESISTANCE 1 UNITS SC (09:28)
[2024-12-31] MEDS: HEPARIN 5000 UNITS SC (09:30)
--- NOTE | 2024-12-31 09:36 | W.PN.HOSP.TC ---
Addendum entered and electronically signed by Daniela Lara MD 01/04/25 07:59:
Severe malnutrition
Original Note:
Today's Communication/Plan
-
see a/p
Assessment / Plan
Assessment / Plan
Physical Exam
General: Appears Chronically Ill, Frail, uncomfortable
HEENT: Oxygen Nasal Cannula supplementation, Lips are dry with poor dentition
Respiratory: Clear to auscultation but appears dyspneic almost agonal breathing
Cardiac: S1/S2, Regular Rhythm and Murmur; No Tachycardia
GI: Soft and Non Tender
Musculoskeletal: No Clubbing, No Cyanosis, +1 pitting edema bilateral lower extremities
Skin: Warm and Dry
Neuro: Limited conversation d/t weakness, dyspnea, was able to say his name when asked but with difficulty, lethargic but arousable, appears confused
Psych: Calm
84M metastatic renal cell carcinoma, CKD III, CAD, CHF, HTN, and DM p/w AMS. [facility] Staff at the facility noted patient was more somnolent and confused prompting ED evaluation. Likely Acute on Chronic
HFpEF, patient was admitted for further evaluation treatment.
Acute on Chronic HFpEF
-Consult Cardiology appreciated
-treated with Bumex 1mg IV Daily
-
Elevated Troponin, likely non-ischemic myocardial injury
-Troponin trended to peak 0.256
Hyperkalemia, mild persistent
Elevated Transaminases, likely related to hepatic congestion in setting of heart failure
Mild SUNITHA on CKD Stage III
-baseline roughly 1.4, Cr elevated at 1.7 on admission, no significant improvement or worsening with IV bumex
Diabetes Mellitus, Type II - Sugars are uncontrolled
-HgbA1c 7.0 in November 2024
- Januvia
Chronic Hypoxic Respiratory Failure
-Patient maintained on 4L nasal canula at baseline
Coronary Artery Disease s/p CABG
-aspirin, isosorbide mononitrate, metoprolol and rosuvastatin
Depression
-mirtazapine
Hx Metastatic Renal Cell Carcinoma with Lung Mets s/p Keytruda and Chemotherapy
Hx Recurrent Left Pleural Effusion
DVT proph: SC Heparin
Code Status: DNR/DNI
Goals of Care discussion: Family (daughter Narcisa, son Justen, Vianca) at bedside expressed interest in pursuing hospice/comfort care. Discussed patient hospice appropriate with likely <1 month prognosis, end stage disease metastatic renal
cancer, frailty, dyspneic almost agonal like breathing despite saturating well on 4L, uncomfortable appearance. Provided information as to what to expect with transition to comfort care, including stopping medications that would prolong patient's
life without significantly adding to quality (such as diuretics), stopping invasive tests/imaging/lab work, and providing comfort medications/diet. Also discussed that patient would likely pass in days if not less while on comfort measures.
Discussed continue active treatment may prolong patient's life but likely would not add to quality. Following discussion, family expressed agreement with pursuing hospice comfort measures for patient. Patient himself AMS, did not appear to have
capacity to make decisions for himself but nonetheless appeared to be in agreement with his family's decisions. Hospice eval appreciated. Care updated to comfort measures as per family's wishes. Likely GIP hospice appropriate if patient is still
with us tomorrow, if not imminent then.
Discussed with patient, patient's daughter Naricsa, patient's son Justen, and patient's Vianca.
I spent a total of 50 minutes with the patient or on the floor. More than 50% of this time involved counseling and coordination of care.
Anticipated Discharge: 24 - 48 hours
Subjective/Interval History
-
Date of Service: December 31, 2024
Seen and examined at bedside patient appears uncomfortable dyspneic despite oxygen supplementation, very weak and frail looking. Family (daughter Narcisa, son Justen, and Vianca present during evaluation).
Objective Data
-
Labs:
Laboratory Results
12/31/24
06:36
WBC 5.5
Hgb 12.4 L
Hct 49.4
Plt Count 302
Sodium 145
Potassium 5.4 H
Chloride 109 H
Carbon Dioxide 27
BUN 62 H
Creatinine 1.6 H
Glucose 201 H
Calcium 8.4
Total Bilirubin 0.6
AST 56
ALT 64 H
Alkaline Phosphatase 280 H
Vital Signs:
Vital Signs
Temp Pulse Resp BP Pulse Ox
98.6 F 92 18 117/55 98
12/31/24 07:00 12/31/24 07:00 12/31/24 07:00 12/31/24 07:00 12/31/24 07:00
I&O
12/30/24 12/31/24 01/01/25
06:59 06:59 06:59
Output Total 980 / 980
Balance -980 / -980
--- NOTE | 2024-12-31 09:55 | W.PN.CD ---
Today's Communication / Plan
-
continue IV bumex, with close monitoring of labs/tele, as family decides on hospice/goals of care
Impression / Plan
-
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
chemotherapy and Keytruda presented to the emergency department with a chief complaint and change in mental status.
Outpatient dials inspector: Dr. Naranjo
HFpEF, acute on chronic, severe
- continue IV bumex, with close monitoring of labs/tele, as family decides on hospice/goals of care
Change in mental status
CKD stage III
- Creatinine above baseline, follow with diuresis
- With metastatic renal carcinoma
Abnormal troponin: acute nonischemic myocardial injury in the setting of heart failure and CKD
- No chest pain but he presented with confusion
CAD
- Stable without chest pain
- Status post CABG 2006, continue medical management
Transaminitis, in the setting of congestion
Chronic hypoxic respiratory failure, on 4 L nasal cannula at baseline
Metastatic renal carcinoma, metastasis to lung, managed by [facility]
Type 2 diabetes mellitus, with hyperglycemia, per primary service
Mitral regurgitation, mild to moderate
Aortic stenosis, mild to moderate, peak/mean gradients 14/8 mmHg, FREYA 1.3 cm.
Carotid artery stenosis, moderate right
CODE STATUS: DNR/DNI
Physical Exam
Vital Signs/Labs
Vital Signs
Temp Pulse Resp BP Pulse Ox
98.6 F 92 18 117/55 98
12/31/24 07:00 12/31/24 07:00 12/31/24 07:00 12/31/24 07:00 12/31/24 07:00
12/30/24 12/31/24 01/01/25
06:59 06:59 06:59
Actual Weight 66.48 kg
12/31/24 06:36
12/31/24 06:36
Magnesium 2.4 mg/dl (1.6-2.3) H 12/31/24 06:36
12/30/24
09:43
Phm-R-Xvcccktzgvq Pept > 82381
LAB Results
12/30/24 12/30/24 12/30/24
09:43 16:52 22:55
Troponin I 0.208 H* 0.238 H* 0.256 H*
12/31/24
06:36
Troponin I 0.207 H*
Physical Exam
Constitutional: Confusion
Cardiovascular: Rhythm & rate is regular, Systolic murmur absent and Pedal edema present
Respiratory: Respiratory effort normal
Data Reviewed
-
Date of Service: December 31, 2024
EKG: Other (Tele: SR 90s)
Labs: Labs Reviewed by me
[2024-12-31] MEDS: BUMEX 1 MG IV (10:17)
--- NOTE | 2024-12-31 10:58 | CM ---
Patient seen at bedside with family
patient from [facility]
agreeable to hospice eval-options reviewed hospice referral placed in careport
CM consult completed - hospice eval
[facility]- hospice
PLAN: Hospice eval
[2024-12-31 11:00] VITALS: BP 122/62
--- NOTE | 2024-12-31 11:23 | PTOTSP ---
ST Acute Care Evaluation
Pt currently presents with clinical signs of mild to moderate oral dysphagia characterized by reduced oral cavity opening, reduced oral acceptance of solids, prolonged anterior to posterior transport of solids, and reduced oral control with liquids
with suspected premature posterior loss as well as suspected mild to moderate pharyngeal dysphagia as evidenced by piecemeal deglutition with solids as well as wet vocal quality and coughing following ingestion of both thin liquids and pureed solids.
Recommendations:
- NPO except critical meds crushed in puree (at RN discretion) and ARHP.
- Aspiration precautions: HOB upright as often as possible (at least 30 degrees), oral care q4 hours, only provide ARHP when fully awake and alert (after oral care).
- CROCODILE FARMER to f/u re: re-assess pt's candidacy to resume PO intake, check GOC.
--- NOTE | 2024-12-31 12:07 | HOSPNOTE ---
Spoke to the family via speaker phone (Narcisa Coley and Justen) explained that at this time the patient did not meet GIP criteria but offered comfort care and moving him to . They are in agreement. They shared that patient did express a
desire to go home but at this time they were not sure if they would be able to provide the care he needed. Spoke to Heidi in admissions to get the bed changed. Will continue to follow.
--- NOTE | 2024-12-31 12:15 | PTCARENOTE ---
family refusing to have any further wound care done and refusing insulin coverage. They spoke with Genie Olivier outpatient therapist and have decided on comfort measures with transfer to , will continue to monitor.
[2024-12-31 12:23] LABS: Glucose - Point of Care 181 mg/dl (70-99)
--- NOTE | 2024-12-31 12:25 | CHAP ---
Called by nurse for Jose C, who was minimally responsive during my visit at 9:30. , Faby, and son, Justen, were present. Emotional and spiritual support provided, along with a prayer blanket. Contacted [facility] to arrange a enzyme chemist visit, at
family's request. Talked with the family about the possibility of hospice. Fr. Alvarado came shortly after, to provide Sacrament of the Sick. Pastoral Care remains available.
--- NOTE | 2024-12-31 12:45 | W.PN.UPDATE ---
Update Note
Progress Note Update
Following Goals of Care discussion, family (daughter Narcisa, son Justen, Vianca) at bedside in agreement with pursuing hospice comfort measures for patient. Patient himself AMS, does not appear to have capacity to make decisions for
himself at this time but nonetheless appears to be in agreement with his family's decisions. Hospice eval appreciated. Care updated to comfort measures as per family's wishes. Likely GIP hospice appropriate if patient is still with us tomorrow,
if not imminent then.
[2024-12-31 14:25] VITALS: BP 103/48
--- NOTE | 2024-12-31 14:28 | PTCARENOTE ---
patient transferred to for initiation of comfort measures via bed. patient respirations labored using abdominal accessory muscles and restless. 4L NC maintained. family at beside, belongings sent with patient. RN Sunday given telephone report
prior to transfer of patient.
--- NOTE | 2024-12-31 14:28 | PTCARENOTE ---
Patient transferred from [facility]. Patient restless with labored breathing. Family at bedside. Family updated on comfort measure protocols on 2N. Will administer prn medications.
[2024-12-31] MEDS: DILAUDID 0.5 MG IV ×3 (14:33→22:02)
[2024-12-31 19:42] VITALS: BP 85/46
[2024-12-31] MEDS: ATIVAN 0.5 MG IV (22:01)
--- NOTE | 2024-12-31 23:00 | PTCARENOTE ---
Patients family called to notify me patient wasn't breathing anymore. I notified NURSING UNIT CLERK to come pronounce patient. Time of 2300. Support offered to family.
--- NOTE | 2024-12-31 23:11 | W.PN.DEATH ---
Pronouncement of
-
Called to see patient to pronounce.
No spontaneous heart tones or respirations noted.
Patient not responsive to verbal stimuli.
Patient is pronounced .
Time of : 23:00
Date of : 12/31/24
Cause of : hypoxic respiratory failure, heart failure, metastatic renal cancer with lung mets
Family Notified: Yes (multiple family at bedside)
--- NOTE | 2025-01-01 06:13 | W.DCSUMMARY ---
Discharge Summary
Discharge Data
Date of Admission: 12/30/24
Date of Discharge: 01/01/25
-
Pending Results: No
Discharge Plan
-
Patient Disposition:
Date/Time
Date/Time: 01/01/25 02:05
Discharge Date and Time
Discharge Date/Time: 01/01/25 02:05
Print Language: CYPRIOT
--- NOTE | 2025-01-03 11:28 | PN.CDI ---
CDI
- -
CDI:
Physician Documentation Request
Admit Date: 12/30/24 12:55
Dear Doctor,
Please review the following and provide your response in the progress notes.
Clinical Indicators:
Per RD Assessment 12/30: 'Patient meets ASPEN/AND Criteria for Severe Malnutrition as evidenced by nutrient intake </= 75% estimated energy needs for greater than or equal to 1 month, severe SQ loss over rib cage and triceps, severe muscle loss over
clavicles and temporals.
Based on the above information and your assessment, which of the following most accurately represents the patient's nutritional status?
Severe malnutrition
Other (please specify)Unable to determine
Haslet Criteria ([facility] Hospitalist 2017)
2 or more criteria must be present for either
non severe or severe malnutrition
Note that the criteria differs related to the
presence of an acute or chronic illness
Acute Illness Chronic Illness
Energy Intake Non Severe: <75% for >7 days Non Severe: <75% for >1 month
Severe: <50% for >5 days Severe: <75% for >1 month
Weight Loss Non Severe: 1-2% over 1 week Non Severe: 5% over 1 month
5% over 1 month 7.5% over 3 months
7.5% over 3 months 10% over 6 months
1 year N/A 20% over 1 year
Severe: >2% over 1 week Severe: >5% over 1 month
>5% over 1 month >7.5% over 3 months
>7.5% over 3 months >10% over 6 months
1 year N/A >20% over 1 year
Body Fat Non Severe: Mild Decrease Non Severe: Mild Loss
Severe: Moderate Decrease Severe: Severe Loss
Muscle Mass Non Severe: Mild Decrease Non Severe: Mild Loss
Severe: Moderate Decrease Severe: Severe Loss
Fluid Accumulation Non Severe: Mild Accumulation Non Severe: Mild Accumulation
Severe: Moderate to severe Severe: Moderate to severe
accumulation accumulation
Reduced Child Care Supervisor Strength Non Severe: N/A Non Severe: N/A
Severe: Measurably reduced Severe: Measurably reduced
Additional criteria that can be used to Determine if Mild or Moderate Malnutrition ([employer]ck Manual 2018)
Mild Moderate Severe
Albumin gm/dl <3.0 gm/dl <2.5 gm/dl <2.0 gm/dl
Pre Albumin mg/dl <15 gm/dl <10 mg/dl <5.0 mg/dl
BMI <18.5 <17 <16
Use of terms such as suspected, likely, concern for, or probable (associated with a specific diagnosis that is being evaluated, monitored, or treated as if it exists) are acceptable and can be coded in the inpatient setting, when documented at the
time of discharge.
Thank you,
Radha Keyes
CDI Specialist
Please use your independent medical judgment in providing your response.
== END 2025-01-01 02:05 | disposition expired | DRG 291 ==
LOC: 2 NORTH 12:55
PROVIDERS: Physician Assistant; Physician Assistant Medical; ADMITTING PHYSICIAN Hospitalist; ATTENDING PHYSICIAN Internal Medicine; CONSULT PHYSICIAN Internal Medicine; EMERGENCY PHYSICIAN Emergency Medicine; FAMILY PHYSICIAN Student in an Organized Health Care Education/Training Program
DX: I13.0 Hypertensive heart and chronic kidney disease with heart failure and stage 1 through stage 4 chronic kidney disease, or unspecified chronic kidney disease (principal); E43 Unspecified severe protein-calorie malnutrition; I50.33 Acute on chronic diastolic (congestive) heart failure; C64.9 Malignant neoplasm of unspecified kidney, except renal pelvis; J96.11 Chronic respiratory failure with hypoxia; C78.00 Secondary malignant neoplasm of unspecified lung; N17.9 Acute kidney failure, unspecified; I5A Non-ischemic myocardial injury (non-traumatic); E87.5 Hyperkalemia; I25.10 Atherosclerotic heart disease of native coronary artery without angina pectoris; Z95.1 Presence of aortocoronary bypass graft; F32.A Depression, unspecified; Z66 Do not resuscitate; Z87.891 Personal history of nicotine dependence; N18.32 Chronic kidney disease, stage 3b; E11.22 Type 2 diabetes mellitus with diabetic chronic kidney disease; Z79.82 Long term (current) use of aspirin; K76.1 Chronic passive congestion of liver; Z92.21 Personal history of antineoplastic chemotherapy; Z68.22 Body mass index [BMI] 22.0-22.9, adult; F68.8 Other specified disorders of adult personality and behavior; Z51.5 Encounter for palliative care
CPT/HCPCS: 70450; 71046; 80053; 81003; 81015; 82248; 82962; 83735; 83880; 84132; 84484; 85025; 85027; 92610; 94640; 96374; 99285